=== PATIENT | male | born 1940 | race Caucasian/White ===

== ENCOUNTER → 2016-12-08 | Outpatient (CLI) | payer SELFPAY ==
[2015-06-20 11:45] VITALS: BP 138/80
--- NOTE | 2016-12-08 09:31 | CT ---
HISTORY: Screening. History of diabetes mellitus. Study: Cardiac calcium scoring. Technique: Multiple axial images of the chest were obtained on a [address] from the main pulmonary artery to the base of the heart. Noncontrast evaluation of the heart was performed for calcium scoring with prospective gating. Findings: A total calcium score of 317 is observed which is between the 50th and 75th percentile for males above the age of 70. This score implies definite, at least moderate atherosclerotic plaque wi th mild coronary artery disease highly likely and significant narrowings possible. LM: 0 LAD: 140 LCX: 69 RCA: 108 Extracardiac findings: There are calcifications of the aortic and mitral valves. No pathologically enlarged lymphadenopathy can be observed. No significant pericardial effusion can be identified. The visualized portions o f the lung parenchyma are unremarkable. No lytic or blastic lesions can be identified within the vi sualized bony thorax. IMPRESSION: A total calcium score of 317 is observed which is between the 50th and 75th percentile for males above the age of 70. This score implies definite, at least moderate atherosclerotic plaque with mild coronary artery disease highly likely and significant narrowings possible. Reported By:
== END ==
LOC: RAD 08:24
PROVIDERS: ATTEND Family Medicine
DX: Z13.6 Encounter for screening for cardiovascular disorders (principal)

== ENCOUNTER 2020-05-29 05:53 | Inpatient (IN) ==
[2020-05-29 06:06] VITALS: BMI 25.4
--- NOTE | 2020-05-29 06:21 | DR.SOBA ---
HPI Time Seen Time Seen by Provider: 05/29/20 06:08 Primary Care Physician Primary Care Physician: FELECIA LUCAS HPI Comment HPI Comment: A 79 y/o male presenting with SOB and dizziness. It was about 5 O' Clock this morning and went to use the bathroom. Upon attempting to arise, he was dizzy and SOB. He said he got quite diaphoretic but had no c/p or palpitations. He managed to get from the bathroom to his Den and called EMS. He is asymptomatic at rest but states that the MAHAJAN will occur with minimal exertion, along with dizziness. He has a hx. of tinnitus and a heart murmur. He takes daily ASA, Plavix and a blood thinner already. Complaints Chief Complaint:: PT IN ED VIA STRETCHER PER [facility] WITH C/O SOB AND DIAPHORETIC. COVID-19 Coronavirus risk:travel/contact w/high risk person: No Has patient experienced Coronavirus symptoms: No Reviewed Nurses Notes Reviewed: Yes Source History Provided: Patient Mode of Arrival Mode of Arrival: Stretcher Timing Onset of Chief Complaint: 05/29/20 Context Onset:: With Light Exertion PE Risk Factors:: None History of:: None Currently on:: Neither Prehospital Care:: None Modifying Factors Worsens:: Exertion Improves:: Rest Associated Signs and Symptoms Associated Signs and Symptoms: None PMH PMH Past Medical History: Yes Past Medical History: Diabetes and Dyslipidemia Past Medical History Comment: HEART MURMUR, CVA Past Surgical History: No Surgical History: No History Family History History of Family Medical Conditions: Yes Family Medical History: Diabetes Mellitus, Cancer and Hypertension Social History Does patient currently use any type of tobacco product: No Have you used tobacco products in the last 12 months: No Type of Tobacco Use: None Does any household member use tobacco: No Alcohol Use: None Do you use any recreational Drugs:: No Lives With: Spouse Lives Where: Home Travel Risk Coronavirus risk:travel/contact w/high risk person: No Has patient experienced Coronavirus symptoms: No Infectious screening In the last 2 months have you had wt loss of >10#?: NO Have you had fever, night sweats or hemotysis?: No Have you traveled outside the country in the last 6 months?: No Isolation: Standard ROS Review of Systems Constitutional: Diaphoresis Eyes: No Symptoms Reported ENTM: No Symptoms Reported Respiratoy: Short of Breath Cardiovascular: No Symptoms Reported Gastrointestinal/Abdominal: No Symptoms Reported Genitourinary: No Symptoms Reported Neurological: Dizziness Musculoskeletal: No Symptoms Reported Integumentary: No Symptoms Reported Hematologic/Lymphatic: No Symptoms Reported Endocrine: No Symptoms Reported Psychiatric: No Symptoms Reported PE Vital Signs Vitals: Temperature 98.5 F Pulse Rate 100 Respiratory Rate 24 Blood Pressure 130/60 O2 Sat by Pulse Oximetry 100 General Limitations: No Limitations General Appearance: Alert and In No Apparent Distress Head Head Exam: Normal Inspection, Atraumatic and Normocephalic Eyes Eye exam: Normal Appearance and EOMI ENT ENT Exam: Normal Exam, Normal Oropharynx, Normal External Ear Exam and Mucous Membranes Moist Neck Neck Exam: Normal Inspection, Full ROM and Trachea Midline Chest Chest Inspection: Normal Inspection and Symmetric Chest Wall Rise Respiratory Respiratory Exam: Normal Lung Sounds Bilat Cardiovascular Cardiovascular Exam: Regular Rate, Normal Rhythm, Normal Heart Sounds, +S1 and +S2 Abdominal Exam Abdominal Exam: Normal Inspection, Normal Bowel Sounds and Soft Extremities Extremities Exam: Normal Inspection and Full ROM Back Back Exam: Normal Inspection and Full ROM Neurologic Neurological Exam: Alert and Oriented X3 Psychiatric Psychiatric Exam: Normal Affect and Normal Mood Skin Skin Exam: Dry and Normal Color COURSE Reevaluation 1st: Unchanged Education/Counseling Education/Counseling: Patient, Education and Counseling Educated On: Treatment, Diagnosis, Prognosis and Needs for Follow Up ROR Labs Reviewed Laboratory Results Reviewed?: Yes Result Diagrams: 05/29/20 06:20 05/29/20 06:20 Laboratory: WBC 8.0 X10^3/uL (3.6-10.0) 05/29/20 06:20 RBC 1.74 X10^6/uL (4.7-6.0) L 05/29/20 06:20 Hgb 6.0 g/dL (13.5-18.0) L* 05/29/20 06:20 Hct 17.1 % (42.0-54.0) L* 05/29/20 06:20 MCV 98.1 fL (80.0-100.0) 05/29/20 06:20 MCH 34.3 pg (27.0-34.0) H 05/29/20 06:20 MCHC 35.0 g/dL (33.0-35.0) 05/29/20 06:20 RDW 13.7 % (11.6-16.5) 05/29/20 06:20 Plt Count 140 X10^3/uL (150.0-450.0) L 05/29/20 06:20 MPV 8.3 fL (7.4-11.0) 05/29/20 06:20 Neut % (Auto) 50.8 % (42.0-75.0) 05/29/20 06:20 Lymph % (Auto) 45.1 % (21.0-51.0) 05/29/20 06:20 [place] % (Auto) 3.2 % (0.0-13.0) 05/29/20 06:20 Eos % (Auto) 0.5 % (0.9-2.9) L 05/29/20 06:20 Baso % (Auto) 0.4 % (0.2-1.0) 05/29/20 06:20 Neut # (Auto) 4.0 x10^3/uL (2.2-4.8) 05/29/20 06:20 Lymph # (Auto) 3.6 X10^3/uL (1.3-2.9) H 05/29/20 06:20 [place] # (Auto) 0.3 x10^3/uL (0.3-0.8) 05/29/20 06:20 Eos # (Auto) 0.0 x10^3/uL (0.0-0.2) 05/29/20 06:20 Baso # (Auto) 0.0 X10^3/uL (0.0-0.1) 05/29/20 06:20 Absolute Nucleated RBC 0.0 /100WBC 05/29/20 06:20 Sample Site Rbra 05/29/20 06:26 ABG pH 7.490 (7.35-7.45) H 05/29/20 06:26 ABG pCO2 28.0 mmHg (35.0-45.0) L 05/29/20 06:26 ABG pO2 156.0 mmHg (80.0-100.0) H 05/29/20 06:26 ABG HCO3 21.3 mmol/L (22-26) L 05/29/20 06:26 ABG O2 Saturation 100.0 % (90-100) 05/29/20 06:26 ABG Base Excess -1.0 mmol/L (-2.0-2.0) 05/29/20 06:26 Mac Test N/a 05/29/20 06:26 A-a Gradient -41.0 mmHg 05/29/20 06:26 FiO2 21.0 05/29/20 06:26 Blood Gas Comments Pt aleksandra well eb 05/29/20 06:26 Sodium 137 mmol/L (136-145) 05/29/20 06:20 Corrected Sodium 139 mmol/L (136-145) 05/29/20 06:20 Potassium 4.1 mmol/L (3.5-5.1) 05/29/20 06:20 Chloride 102 mmol/L (98-107) 05/29/20 06:20 Carbon Dioxide 19.7 mmol/L (21-32) L 05/29/20 06:20 BUN 47 mg/dL (7-18) H 05/29/20 06:20 Creatinine 1.07 mg/dL (0.70-1.30) 05/29/20 06:20 Est GFR (MDRD) Af Amer > 60 (>60) 05/29/20 06:20 Est GFR (MDRD) Non-Af > 60 (>60) 05/29/20 06:20 Glucose 182 mg/dL (65-99) H 05/29/20 06:20 Calcium 8.1 mg/dL (8.5-10.1) L 05/29/20 06:20 Corrected Calcium 9.2 mg/dL (8.5-10.1) 05/29/20 06:20 Total Bilirubin 0.20 mg/dL (0.2-1.0) 05/29/20 06:20 AST 14 Units/L (15-37) L 05/29/20 06:20 ALT 13 Units/L (12-78) 05/29/20 06:20 Alkaline Phosphatase 23 Units/L (46-116) L 05/29/20 06:20 Creatine Kinase 32 Units/L (39-308) L 05/29/20 06:20 CK-MB (CK-2) < 1.0 ng/mL (0-4.0) 05/29/20 06:20 CK/CKMB % Calc 3.1 % (<4) 05/29/20 06:20 Troponin I 0.02 ng/mL (0-1.5) 05/29/20 06:20 Total Protein 5.1 g/dL (6.4-8.2) L 05/29/20 06:20 Albumin 2.6 g/dL (3.4-5.0) L 05/29/20 06:20 Globulin 2.5 g/dL (2.5-4.5) 05/29/20 06:20 Albumin/Globulin Ratio 1.0 Ratio (1.1-2.1) L 05/29/20 06:20 Stool Description Fob tube 05/29/20 07:09 Stl Occult Blood (IFOB) Positive (NEGATIVE) A 05/29/20 07:09 EKG Rate: 105 Dike: Normal Rhythm: ST Block: None Hypertrophy: None ST: Normal Opioid Opioid Risk Tool Age (Jose Eduardo box if 16-45): No History of Preadolescent Sexual Abuse: No Total: 0 Total Score Risk Category: Low Risk Copyright: Chevy QUINN predicting aberrant behaviors Diagnosis Discharge Problem: Symptomatic anemia, Near syncope, BPH loc w urin obs/LUTS Type 2 diabetes mellitus Qualifiers: Diabetes mellitus shelter insulin use: without shelter use Diabetes mellitus complication status: with other specified complication Qualified Code(s): E11.69 - Type 2 diabetes mellitus with other specified complication
[2020-05-29 06:30] LABS: ABG HCO3 21.3 mmol/L (22-26)
--- NOTE | 2020-05-29 06:35 | RAD ---
HISTORYPT IN ED VIA STRETCHER PER [facility] WITH C/O SOB AND DIAPHORETIC.STUDYCHEST, 1 VIEWCOMPARISONNoneTECHNIQUEAP view of the chestFINDINGSCardiac and mediastinal contours are within normal limits. The lungs are hyperexpanded. Scattered interstitial opacities. Blunted costophrenic sulci. No consolidation. No pneumothorax.IMPRESSIONSuspect emphysema with mild chronic interstitial disease.Electronically signed by: Taran Valiente (May 29, 2020 06:33:24)
[2020-05-29 06:44] LABS: BASOPHILS % (AUTO) 0.4 % (0.2-1.0); EOSINOPHILS % (AUTO) 0.5 % (0.9-2.9); LYMPHOCYTES # (AUTO) 3.6 X10^3/uL (1.3-2.9); LYMPHOCYTES % (AUTO) 45.1 % (21.0-51.0); MEAN CORPUSCULAR HEMOGLOBIN 34.3 pg (27.0-34.0); MEAN CORPUSCULAR VOLUME 98.1 fL (80.0-100.0); MEAN PLATELET VOLUME 8.3 fL (7.4-11.0); MONOCYTES # (AUTO) 0.3 x10^3/uL (0.3-0.8); MONOCYTES % (AUTO) 3.2 % (0.0-13.0); NEUTROPHILS % (AUTO) 50.8 % (42.0-75.0); PLATELET COUNT 140 X10^3/uL (150.0-450.0); RED BLOOD COUNT 1.74 X10^6/uL (4.7-6.0); RED CELL DISTRIBUTION WIDTH 13.7 % (11.6-16.5)
[2020-05-29 06:55] LABS: HEMATOCRIT 17.1 % (42.0-54.0)
[2020-05-29 07:08] LABS: ALANINE AMINOTRANSFERASE 13 Units/L (12-78); ALBUMIN 2.6 g/dL (3.4-5.0); ALKALINE PHOSPHATASE 23 Units/L (46-116); ASPARTATE AMINO TRANSFERASE 14 Units/L (15-37); BLOOD UREA NITROGEN 47 mg/dL (7-18); CALCIUM 8.1 mg/dL (8.5-10.1); CARBON DIOXIDE 19.7 mmol/L (21-32); CHLORIDE 102 mmol/L (98-107); CKMB % 3.1 % (<4); COR CA(FOR HYPOALB) 9.2 mg/dL (8.5-10.1); COR NA(FOR HYPERGLY) 139 mmol/L (136-145); CREATINE KINASE 32 Units/L (39-308); CREATINE KINASE MB < 1.0 ng/mL (0-4.0); CREATININE 1.07 mg/dL (0.70-1.30); SODIUM 137 mmol/L (136-145); TOTAL PROTEIN 5.1 g/dL (6.4-8.2); TROPONIN I 0.02 ng/mL (0-1.5); eGFR NON BLACK RACES > 60 (>60)
[2020-05-29] MEDS ORDERED: TYLENOL 325 MG TAB PO PRN (07:32)
[2020-05-29] MEDS ORDERED: BENADRYL INJ 50 MG VIAL IVP PRN (07:32)
[2020-05-29] MEDS ORDERED: ASPIRIN PO SCH (09:56)
[2020-05-29] MEDS ORDERED: PATIENT'S HOME MEDICATION (Cinnamon Bark [Cinnamon] 500 mg Capsule) PO SCH (09:56)
[2020-05-29] MEDS ORDERED: PLAVIX PO SCH (09:56)
[2020-05-29] MEDS ORDERED: GLUCOPHAGE ONE ×2 (10:34→21:06)
[2020-05-29] MEDS: NS 500 ML IV 500 ML IV ONE (10:45)
[2020-05-29] MEDS: NS 1000 ML 1,000 ML IV SCH ×2 (10:45→18:18)
[2020-05-29] MEDS: GLUCOPHAGE PO SCH ×2 (10:45→21:21)
[2020-05-29] MEDS ORDERED: PROTONIX INJ 40 MG VIAL ONE (11:52)
[2020-05-29] MEDS: HumuLIN R SUBCUT PRN ×2 (11:54→21:22)
[2020-05-29] MEDS: PROTONIX INJ 40 MG VIAL IVP SCH ×2 (11:57→21:20)
--- NOTE | 2020-05-29 13:07 | DR.H&P ---
H&P History & Physical for Day of: H&P Date: 05/29/20 Chief Complaint Chief Complaint: Dizziness Shortness of breath Allergies Allergies Allergy/AdvReac Type Severity Reaction Status Date / Time No Known Drug Allergies Allergy Verified 05/29/20 06:06 History of Present Illness History of Present Illness: Pt is a 79 year old male pmhx CVA, DMT2, Low testosterone(androgel), presenting after feeling lightheaded, dizzy, diaphoretic, and short of breath this morning when he went to the bathroom. He does report gradual weakness that he has noticed every morning for the past 6 weeks. He did not notice in blood in his stools. Denies chest pain. He was taking ASA 325 and Plavix due to history of CVA in the past that left him with loss of left peripheral vision. He has seen GI in the past-Dr Hendrix, last colonoscopy normal 5 years ago. Labs/imaging: Wbc 8.0, Hgb 6.0, Plt 140, Na 137, K 4.1, Cr 1.07, Glucose 182, AST 14, ALT 13, ALP 23, Stool occult positive for blood, COVID19 negative, Troponin 0.02, AB.49/ 28/ 156/ 21/ 100% on RA. CXR: Suspect emphysema with mild chronic interstitial disease. Pt to be admitted for GI bleed and symptomatic anemia. Type and screen, will transfuse 2 units prbc. Pt started on CLD, NPO after midnight. Order IVF, IV Protonix 40mg BID, hold aspirin and plavix. Will consult surgery for further evaluation. Continue to monitor and follow up labs/imaging in the morning. Past Medical History Past Medical History: Diabetes and Dyslipidemia Past Surgical History Surgical History: Other Family History Family Medical History: Diabetes Mellitus, Cancer and Hypertension Social History Does patient currently use any type of tobacco product: No Have you used tobacco products in the last 12 months: No Type of Tobacco Use: None Does any household member use tobacco: No Alcohol Use: None Drug Use: None Medications Home Medications: No Known Drug Allergies Allergy (Verified 05/29/20 06:06) CONTINUE taking the following medications aspirin 325 mg PO DAILY 05/29/20 [History] cinnamon bark [Cinnamon] 500 mg PO BID 05/29/20 [History] clopidogrel 75 mg PO DAILY 05/29/20 [History] metformin 500 mg PO BID 05/29/20 [History] [id number] K-lycop [Men's 50 Plus Multivitamin] 1 tab PO QHS 0 [History] simvastatin 40 mg PO HS 05/29/20 [History] tamsulosin 0.4 mg PO HS 05/29/20 [History] Labs Result Diagrams: 05/29/20 06:20 05/29/20 06:20 Labs: Laboratory WBC 8.0 X10^3/uL (3.6-10.0) 05/29/20 06:20 RBC 1.74 X10^6/uL (4.7-6.0) L 05/29/20 06:20 Hgb 6.0 g/dL (13.5-18.0) L* 05/29/20 06:20 Hct 17.1 % (42.0-54.0) L* 05/29/20 06:20 MCV 98.1 fL (80.0-100.0) 05/29/20 06:20 MCH 34.3 pg (27.0-34.0) H 05/29/20 06:20 MCHC 35.0 g/dL (33.0-35.0) 05/29/20 06:20 RDW 13.7 % (11.6-16.5) 05/29/20 06:20 Plt Count 140 X10^3/uL (150.0-450.0) L 05/29/20 06:20 MPV 8.3 fL (7.4-11.0) 05/29/20 06:20 Neut % (Auto) 50.8 % (42.0-75.0) 05/29/20 06:20 Lymph % (Auto) 45.1 % (21.0-51.0) 05/29/20 06:20 [place] % (Auto) 3.2 % (0.0-13.0) 05/29/20 06:20 Eos % (Auto) 0.5 % (0.9-2.9) L 05/29/20 06:20 Baso % (Auto) 0.4 % (0.2-1.0) 05/29/20 06:20 Neut # (Auto) 4.0 x10^3/uL (2.2-4.8) 05/29/20 06:20 Lymph # (Auto) 3.6 X10^3/uL (1.3-2.9) H 05/29/20 06:20 [place] # (Auto) 0.3 x10^3/uL (0.3-0.8) 05/29/20 06:20 Eos # (Auto) 0.0 x10^3/uL (0.0-0.2) 05/29/20 06:20 Baso # (Auto) 0.0 X10^3/uL (0.0-0.1) 05/29/20 06:20 Absolute Nucleated RBC 0.0 /100WBC 05/29/20 06:20 Sample Site Rbra 05/29/20 06:26 ABG pH 7.490 (7.35-7.45) H 05/29/20 06:26 ABG pCO2 28.0 mmHg (35.0-45.0) L 05/29/20 06:26 ABG pO2 156.0 mmHg (80.0-100.0) H 05/29/20 06:26 ABG HCO3 21.3 mmol/L (22-26) L 05/29/20 06:26 ABG O2 Saturation 100.0 % (90-100) 05/29/20 06:26 ABG Base Excess -1.0 mmol/L (-2.0-2.0) 05/29/20 06:26 Mac Test N/a 05/29/20 06:26 A-a Gradient -41.0 mmHg 05/29/20 06:26 FiO2 21.0 05/29/20 06:26 Blood Gas Comments Pt aleksandra well eb 05/29/20 06:26 Sodium 137 mmol/L (136-145) 05/29/20 06:20 Corrected Sodium 139 mmol/L (136-145) 05/29/20 06:20 Potassium 4.1 mmol/L (3.5-5.1) 05/29/20 06:20 Chloride 102 mmol/L (98-107) 05/29/20 06:20 Carbon Dioxide 19.7 mmol/L (21-32) L 05/29/20 06:20 BUN 47 mg/dL (7-18) H 05/29/20 06:20 Creatinine 1.07 mg/dL (0.70-1.30) 05/29/20 06:20 Est GFR (MDRD) Af Amer > 60 (>60) 05/29/20 06:20 Est GFR (MDRD) Non-Af > 60 (>60) 05/29/20 06:20 Glucose 182 mg/dL (65-99) H 05/29/20 06:20 POC Glucose (mg/dL) 198 mg/dL (65-99) H 05/29/20 11:42 Calcium 8.1 mg/dL (8.5-10.1) L 05/29/20 06:20 Corrected Calcium 9.2 mg/dL (8.5-10.1) 05/29/20 06:20 Total Bilirubin 0.20 mg/dL (0.2-1.0) 05/29/20 06:20 AST 14 Units/L (15-37) L 05/29/20 06:20 ALT 13 Units/L (12-78) 05/29/20 06:20 Alkaline Phosphatase 23 Units/L (46-116) L 05/29/20 06:20 Creatine Kinase 32 Units/L (39-308) L 05/29/20 06:20 CK-MB (CK-2) < 1.0 ng/mL (0-4.0) 05/29/20 06:20 CK/CKMB % Calc 3.1 % (<4) 05/29/20 06:20 Troponin I 0.02 ng/mL (0-1.5) 05/29/20 06:20 Total Protein 5.1 g/dL (6.4-8.2) L 05/29/20 06:20 Albumin 2.6 g/dL (3.4-5.0) L 05/29/20 06:20 Globulin 2.5 g/dL (2.5-4.5) 05/29/20 06:20 Albumin/Globulin Ratio 1.0 Ratio (1.1-2.1) L 05/29/20 06:20 Stool Description Fob tube 05/29/20 07:09 Stl Occult Blood (IFOB) Positive (NEGATIVE) A 05/29/20 07:09 SARS-CoV-2 (PCR) Negative (NEGATIVE) 05/29/20 07:29 Blood Type O POSITIVE 11/12/20 08:02 Antibody Screen Negative 05/29/20 08:02 Crossmatch See Detail 05/29/20 08:02 Review of Systems Constitutional: Weakness; denies Fever and Chills Eyes: No Symptoms Reported ENT: No Symptoms Reported Respiratory: Shortness of Breath Cardiovascular: No Symptoms Reported Gastrointestinal: Nausea and Abdominal Pain; denies Diarrhea and Constipation Genitourinary: No Symptoms Reported Musculoskeletal: No Symptoms Reported Skin: No Symptoms Reported Neurological: No Symptoms Reported Physical Exam Vital Signs: Temperature 97.9 F Pulse Rate [Bilateral] 102 Pulse Rate 102 Respiratory Rate 22 Blood Pressure [Right Arm] 128/58 Blood Pressure 130/60 O2 Sat by Pulse Oximetry 100 Oriented: Normal Eyes: Normal Ear: Normal Nose: Normal Throat: Normal Respiratory: Clear Throughout Cardiovascular: Tachycardia : Normal Auscultation: Bowel Sounds: Normal Palpation: Normal Tenderness: Suprapubic and Mild Skin: Normal Musculoskeletal: Normal Psychiatric: Normal Mood Description: Calm and Appropriate Affect: Normal Speech Pattern: Clear and Appropriate Assessment/Plan (1) GI bleed: Qualifiers: GI bleed type/associated pathology: unspecified gastrointestinal hemorrhage type Qualified Code(s): K92.2 - Gastrointestinal hemorrhage, u nspecified Status: Acute Plan: CLD, NPO after midnight Trend Hgb, transfuse 2 units prbc, IV Protonix Stool occult positive Consult general surgery (2) Symptomatic anemia: Status: Acute Review H&P Reviewed: Yes Patient was examined?: Yes
[2020-05-29] MEDS ORDERED: NULYTELY or GO-LYTELY PO SCH (15:00)
[2020-05-29] MEDS: SNACK - Diabetic Appropriate PO SCH (20:00)
[2020-05-29] MEDS ORDERED: [UNRECOGNIZED DRUG - OTHER] PO SCH (21:00)
[2020-05-29] MEDS ORDERED: MULTIVIT MIN FOLIC VIT K LYCOP PO SCH (21:00)
[2020-05-29] MEDS: FLOMAX PO SCH (21:21)
[2020-05-29] MEDS: ZOCOR TAB 40 MG PO SCH (21:21)
[2020-05-29 21:55] LABS: HEMATOCRIT 20.6 % (42.0-54.0); HEMOGLOBIN 7.1 g/dL (13.5-18.0)
[2020-05-29 23:33] LABS: GASTRIC OCCULT BLOOD POSITIVE (NEGATIVE); PH,GASTRIC FLUID 4
[2020-05-30] MEDS ORDERED: NS 250 ML IV 250 ML IV ONE ×3 (01:08→10:23)
[2020-05-30] MEDS: NS 1000 ML 1,000 ML IV SCH ×4 (01:45→18:49)
[2020-05-30 07:01] LABS: BLOOD UREA NITROGEN 40 mg/dL (7-18); CALCIUM 7.2 mg/dL (8.5-10.1); CARBON DIOXIDE 23.6 mmol/L (21-32); CHLORIDE 110 mmol/L (98-107); COR NA(FOR HYPERGLY) 144 mmol/L (136-145); CREATININE 0.97 mg/dL (0.70-1.30); SODIUM 142 mmol/L (136-145); eGFR NON BLACK RACES > 60 (>60)
[2020-05-30 07:11] LABS: BASOPHILS % (AUTO) 0.3 % (0.2-1.0); EOSINOPHILS % (AUTO) 0.4 % (0.9-2.9); LYMPHOCYTES # (AUTO) 4.7 X10^3/uL (1.3-2.9); LYMPHOCYTES % (AUTO) 51.7 % (21.0-51.0); MEAN CORPUSCULAR HEMOGLOBIN 32.7 pg (27.0-34.0); MEAN CORPUSCULAR HGB CONC 33.9 g/dL (33.0-35.0); MEAN CORPUSCULAR VOLUME 96.5 fL (80.0-100.0); MEAN PLATELET VOLUME 8.5 fL (7.4-11.0); MONOCYTES # (AUTO) 0.2 x10^3/uL (0.3-0.8); MONOCYTES % (AUTO) 2.7 % (0.0-13.0); NEUTROPHILS # (AUTO) 4.1 x10^3/uL (2.2-4.8); NEUTROPHILS % (AUTO) 44.9 % (42.0-75.0); PLATELET COUNT 102 X10^3/uL (150.0-450.0); RED BLOOD COUNT 2.04 X10^6/uL (4.7-6.0); RED CELL DISTRIBUTION WIDTH 14.3 % (11.6-16.5); WHITE BLOOD COUNT 9.1 X10^3/uL (3.6-10.0)
[2020-05-30 07:16] LABS: HEMOGLOBIN 6.7 g/dL (13.5-18.0)
[2020-05-30 07:17] LABS: HEMATOCRIT 19.7 % (42.0-54.0)
[2020-05-30 07:50] LABS: HYPOCHROMASIA 1+; PLATELET MORPHOLOGY COMMENT NORMAL (NORMAL)
[2020-05-30 07:51] LABS: ANISOCYTOSIS 1+
[2020-05-30] MEDS: GLUCOPHAGE PO SCH ×2 (08:47→20:54)
[2020-05-30] MEDS: PROTONIX INJ 40 MG VIAL IVP SCH ×2 (08:47→20:55)
[2020-05-30] MEDS ORDERED: NS 500 ML IV 500 ML IV ONE (08:50)
[2020-05-30] MEDS ORDERED: DIPRIVAN VIAL 20 ML ONE (09:01)
[2020-05-30] MEDS ORDERED: EPHEDRINE SULFATE INJ ONE (09:54)
--- NOTE | 2020-05-30 11:36 | PCM.PROG ---
Progress Note Progress Note for Day of Date of Exam: 05/30/20 Subjective Subjective: Pt is a 79 year old male pmhx CVA, DMT2, Low testosterone, admitted for GI bleed and symptomatic anemia. Overnight patient had tarry black stools per nursing and did vomit, with gastric occult being positive for blood. Labs/imaging: Wbc 9.1, Hgb 6.7, Plt 102, Na 142, K 4.1, Cr 0.97, Glucose 170, Stool occult positive for blood. Pt is NPO. Hgb continues to trend down despite transfusions. Discussed with nursing to notify surgery pt will need EGD as well as colonoscopy. Continue IVF, IV Protonix 40mg BID, holding home aspirin and plavix. Pt is scheduled for procedures this morning. He has received 3 units prbc and will order another 3 units to be transfused. Continue to monitor and follow up labs/imaging. Past Medical Family Social History Past Med/Fam/Surg Hx: No changes since H&P Allergies: Allergies No Known Drug Allergies Allergy (Verified 05/29/20 06:06) Review of Systems ROS: No change since H&P Vital Signs and I&O's Vital Signs: Temperature 98.6 F Pulse Rate [Bilateral] 102 Pulse Rate 102 Respiratory Rate 18 Blood Pressure [Right Arm] 112/55 Blood Pressure 130/60 O2 Sat by Pulse Oximetry 100 Intake and Output: Intake & Output 05/27/20 05/28/20 05/29/20 05/30/20 23:59 23:59 23:59 23:59 Intake Total 5960 / 5960 1143 / 1143 Balance 5960 / 5960 1143 / 1143 Physical Exam Oriented: Normal Eyes: Normal Ear: Normal Nose: Normal Throat: Normal Respiratory: Normal Cardiovascular: Tachycardia : Normal Auscultation: Bowel Sounds: Normal Tenderness: Epigastric and Mild Skin: Normal Musculoskeletal: Normal Psychiatric: Normal Mood Description: Calm and Appropriate Affect: Normal Speech Pattern: Clear and Appropriate Laboratory and Diagnostics Result Diagrams: 05/30/20 05:32 05/30/20 05:32 Labs: Laboratory WBC 9.1 X10^3/uL (3.6-10.0) 05/30/20 05:32 RBC 2.04 X10^6/uL (4.7-6.0) L 05/30/20 05:32 Hgb 6.7 g/dL (13.5-18.0) L* 05/30/20 05:32 Hct 19.7 % (42.0-54.0) L* 05/30/20 05:32 MCV 96.5 fL (80.0-100.0) 05/30/20 05:32 MCH 32.7 pg (27.0-34.0) 05/30/20 05:32 MCHC 33.9 g/dL (33.0-35.0) 05/30/20 05:32 RDW 14.3 % (11.6-16.5) 05/30/20 05:32 Plt Count 102 X10^3/uL (150.0-450.0) L 05/30/20 05:32 Plt Count Comment Decreased (ADEQUATE) 05/30/20 05:32 MPV 8.5 fL (7.4-11.0) 05/30/20 05:32 Neut % (Auto) 44.9 % (42.0-75.0) 05/30/20 05:32 Lymph % (Auto) 51.7 % (21.0-51.0) H 05/30/20 05:32 [place] % (Auto) 2.7 % (0.0-13.0) 05/30/20 05:32 Eos % (Auto) 0.4 % (0.9-2.9) L 05/30/20 05:32 Baso % (Auto) 0.3 % (0.2-1.0) 05/30/20 05:32 Neut # (Auto) 4.1 x10^3/uL (2.2-4.8) 05/30/20 05:32 Lymph # (Auto) 4.7 X10^3/uL (1.3-2.9) H 05/30/20 05:32 [place] # (Auto) 0.2 x10^3/uL (0.3-0.8) L 05/30/20 05:32 Eos # (Auto) 0.0 x10^3/uL (0.0-0.2) 05/30/20 05:32 Baso # (Auto) 0.0 X10^3/uL (0.0-0.1) 05/30/20 05:32 Absolute Nucleated RBC 0.2 /100WBC 05/30/20 05:32 Total Counted 100 05/30/20 05:32 Neutrophils % (Manual) 46 % (39-76) 05/30/20 05:32 Lymphocytes % (Manual) 43 % (13-43) 05/30/20 05:32 Monocytes % (Manual) 5 % (4-9) 05/30/20 05:32 Atypical Lymphocytes 6 05/30/20 05:32 Plt Morphology Comment Normal (NORMAL) 05/30/20 05:32 RBC Morphology Abnormal (NORMAL) 05/30/20 05:32 Hypochromasia 1+ A 05/30/20 05:32 Anisocytosis 1+ A 05/30/20 05:32 Sample Site Rbra 05/29/20 06:26 ABG pH 7.490 (7.35-7.45) H 05/29/20 06:26 ABG pCO2 28.0 mmHg (35.0-45.0) L 05/29/20 06:26 ABG pO2 156.0 mmHg (80.0-100.0) H 05/29/20 06:26 ABG HCO3 21.3 mmol/L (22-26) L 05/29/20 06:26 ABG O2 Saturation 100.0 % (90-100) 05/29/20 06:26 ABG Base Excess -1.0 mmol/L (-2.0-2.0) 05/29/20 06:26 Mac Test N/a 05/29/20 06:26 A-a Gradient -41.0 mmHg 05/29/20 06:26 FiO2 21.0 05/29/20 06:26 Blood Gas Comments Pt aleksandra well eb 05/29/20 06:26 Sodium 142 mmol/L (136-145) 05/30/20 05:32 Corrected Sodium 144 mmol/L (136-145) 05/30/20 05:32 Potassium 4.1 mmol/L (3.5-5.1) 05/30/20 05:32 Chloride 110 mmol/L (98-107) H 05/30/20 05:32 Carbon Dioxide 23.6 mmol/L (21-32) 05/30/20 05:32 BUN 40 mg/dL (7-18) H 05/30/20 05:32 Creatinine 0.97 mg/dL (0.70-1.30) 05/30/20 05:32 Est GFR (MDRD) Af Amer > 60 (>60) 05/30/20 05:32 Est GFR (MDRD) Non-Af > 60 (>60) 05/30/20 05:32 Glucose 170 mg/dL (65-99) H 05/30/20 05:32 POC Glucose (mg/dL) 158 mg/dL (65-99) H 05/30/20 05:42 Calcium 7.2 mg/dL (8.5-10.1) L 05/30/20 05:32 Corrected Calcium 9.2 mg/dL (8.5-10.1) 05/29/20 06:20 Total Bilirubin 0.20 mg/dL (0.2-1.0) 05/29/20 06:20 AST 14 Units/L (15-37) L 05/29/20 06:20 ALT 13 Units/L (12-78) 05/29/20 06:20 Alkaline Phosphatase 23 Units/L (46-116) L 05/29/20 06:20 Creatine Kinase 32 Units/L (39-308) L 05/29/20 06:20 CK-MB (CK-2) < 1.0 ng/mL (0-4.0) 05/29/20 06:20 CK/CKMB % Calc 3.1 % (<4) 05/29/20 06:20 Troponin I 0.02 ng/mL (0-1.5) 05/29/20 06:20 Total Protein 5.1 g/dL (6.4-8.2) L 05/29/20 06:20 Albumin 2.6 g/dL (3.4-5.0) L 05/29/20 06:20 Globulin 2.5 g/dL (2.5-4.5) 05/29/20 06:20 Albumin/Globulin Ratio 1.0 Ratio (1.1-2.1) L 05/29/20 06:20 Gastric Fluid pH 4 05/29/20 23:15 Gastric Occult Blood Positive (NEGATIVE) A 05/29/20 23:15 Stool Description Fob tube 05/29/20 07:09 Stl Occult Blood (IFOB) Positive (NEGATIVE) A 05/29/20 07:09 SARS-CoV-2 (PCR) Negative (NEGATIVE) 05/29/20 07:29 Blood Type O POSITIVE 05/29/20 08:02 Antibody Screen Negative 05/29/20 08:02 Crossmatch See Detail 05/29/20 08:02 Plan (1) GI bleed: Status: Acute Qualifiers: GI bleed type/associated pathology: unspecified gastrointestinal hemorrhage type Qualified Code(s): K92.2 - Gastrointestinal hemorrhage, unspecified Plan: NPO, Trend Hgb, IV Protonix Hgb:6>2u prbc>7.1>1u prbc>6.7>3u prbc Stool occult positive, gastric occult positive General surgery consulted, plan for EGD and colonoscopy today. (2) Symptomatic anemia: Status: Acute
[2020-05-30] MEDS: NS 500 ML IV 500 ML IV ONE (11:47)
[2020-05-30 15:14] LABS: HEMATOCRIT 22.8 % (42.0-54.0); HEMOGLOBIN 7.8 g/dL (13.5-18.0)
[2020-05-30 19:02] LABS: HEMATOCRIT 22.5 % (42.0-54.0)
[2020-05-30 19:10] LABS: HEMOGLOBIN 7.7 g/dL (13.5-18.0)
[2020-05-30] MEDS ORDERED: GLUCOPHAGE ONE (20:16)
[2020-05-30] MEDS: ZOCOR TAB 40 MG PO SCH (20:53)
[2020-05-30] MEDS: FLOMAX PO SCH (20:53)
[2020-05-30] MEDS: SNACK - Diabetic Appropriate PO SCH (20:54)
[2020-05-30] MEDS: TAB-A-VITE PO SCH (20:55)
[2020-05-31] MEDS: NS 1000 ML 1,000 ML IV SCH ×3 (03:08→18:20)
[2020-05-31 05:30] LABS: BASOPHILS % (AUTO) 0.3 % (0.2-1.0); EOSINOPHILS # (AUTO) 0.1 x10^3/uL (0.0-0.2); MONOCYTES # (AUTO) 0.3 x10^3/uL (0.3-0.8); PLATELET COUNT 88 X10^3/uL (150.0-450.0); WHITE BLOOD COUNT 9.7 X10^3/uL (3.6-10.0)
[2020-05-31 05:33] LABS: EOSINOPHILS % (AUTO) 1.2 % (0.9-2.9); LYMPHOCYTES # (AUTO) 4.8 X10^3/uL (1.3-2.9); LYMPHOCYTES % (AUTO) 49.4 % (21.0-51.0); MEAN CORPUSCULAR HEMOGLOBIN 32.5 pg (27.0-34.0); MEAN CORPUSCULAR HGB CONC 34.4 g/dL (33.0-35.0); MEAN CORPUSCULAR VOLUME 94.7 fL (80.0-100.0); MEAN PLATELET VOLUME 8.5 fL (7.4-11.0); MONOCYTES % (AUTO) 2.9 % (0.0-13.0); NEUTROPHILS # (AUTO) 4.5 x10^3/uL (2.2-4.8); NEUTROPHILS % (AUTO) 46.2 % (42.0-75.0); RED BLOOD COUNT 1.89 X10^6/uL (4.7-6.0); RED CELL DISTRIBUTION WIDTH 14.7 % (11.6-16.5)
[2020-05-31 05:34] LABS: BLOOD UREA NITROGEN 36 mg/dL (7-18); CALCIUM 7.2 mg/dL (8.5-10.1); CARBON DIOXIDE 21.4 mmol/L (21-32); CHLORIDE 111 mmol/L (98-107); COR NA(FOR HYPERGLY) 143 mmol/L (136-145); CREATININE 0.89 mg/dL (0.70-1.30); SODIUM 140 mmol/L (136-145); eGFR NON BLACK RACES > 60 (>60)
[2020-05-31 05:36] LABS: HEMATOCRIT 17.9 % (42.0-54.0); HEMOGLOBIN 6.2 g/dL (13.5-18.0)
[2020-05-31] MEDS ORDERED: NS 250 ML IV 250 ML IV ONE ×2 (07:26→12:02)
[2020-05-31] MEDS ORDERED: GLUCOPHAGE ONE (08:45)
[2020-05-31] MEDS: GLUCOPHAGE PO SCH ×2 (09:40→09:46)
[2020-05-31] MEDS: PROTONIX INJ 40 MG VIAL IVP SCH ×2 (10:00→20:29)
--- NOTE | 2020-05-31 10:24 | RAD ---
HISTORYCHFSTUDYAP [id number] normal heart size. There is no change in appearance of the lungs. There is no evidence for consolidation, pulmonary edema or pleural fluid.IMPRESSIONNo interva l change or acute chest abnormality demonstrated.Electronically signed by: DON ZUNIGA (May 31 10:22:32)
[2020-05-31] MEDS ORDERED: LASIX IVP ONE (10:33)
--- NOTE | 2020-05-31 11:14 | DR.PROGNOT ---
Hospital Progress Notes - Progress Note for Day of: Progress Note Date: 05/31/20 - Chief Complaint Chief Complaint: no active bleeding . no nausea or vomiting . passing flatus , no bowel movement. denies abdominal pain . no chest pain . Hgb early this am was 6.2 . - Past Medical Family Social History Past Med/Fam/Surg Hx: No changes since H&P Allergies: Allergies No Known Drug Allergies Allergy (Verified 05/29/20 06:06) - Review Of Systems ROS: No change since H&P - Vital Signs Vital Signs: Temperature 98.1 F Pulse Rate [Bilateral] 107 Pulse Rate 102 Respiratory Rate 17 Blood Pressure [Right Arm] 131/60 Blood Pressure 130/60 O2 Sat by Pulse Oximetry 100 - Physical Exam Oriented: Normal Eyes: Normal Ear: Normal Nose: Normal Throat: Normal Respiratory: Normal Cardiovascular: Normal : Normal GI:Auscultation: Normal GI:Palpation: Normal GI: Tenderness: Normal (soft , flat abdomen , non tender . BS+) Skin: Other (mild edema of the upper extremities ) Musculoskeletal: Normal Psychiatric: Normal Mood Description: Calm, Appropriate Affect: Normal Speech Pattern: Clear, Appropriate - Laboratory and Diagnostics Result Diagrams: 05/31/20 04:55 05/31/20 04:55 Labs: Laboratory WBC 9.7 X10^3/uL (3.6-10.0) 05/31/20 04:55 RBC 1.89 X10^6/uL (4.7-6.0) L 05/31/20 04:55 Hgb 6.2 g/dL (13.5-18.0) L* 05/31/20 04:55 Hct 17.9 % (42.0-54.0) L* 05/31/20 04:55 MCV 94.7 fL (80.0-100.0) 05/31/20 04:55 MCH 32.5 pg (27.0-34.0) 05/31/20 04:55 MCHC 34.4 g/dL (33.0-35.0) 05/31/20 04:55 RDW 14.7 % (11.6-16.5) 05/31/20 04:55 Plt Count 88 X10^3/uL (150.0-450.0) L 05/31/20 04:55 Plt Count Comment Decreased (ADEQUATE) 05/30/20 05:32 MPV 8.5 fL (7.4-11.0) 05/31/20 04:55 Neut % (Auto) 46.2 % (42.0-75.0) 05/31/20 04:55 Lymph % (Auto) 49.4 % (21.0-51.0) 05/31/20 04:55 [place] % (Auto) 2.9 % (0.0-13.0) 05/31/20 04:55 Eos % (Auto) 1.2 % (0.9-2.9) 05/31/20 04:55 Baso % (Auto) 0.3 % (0.2-1.0) 05/31/20 04:55 Neut # (Auto) 4.5 x10^3/uL (2.2-4.8) 05/31/20 04:55 Lymph # (Auto) 4.8 X10^3/uL (1.3-2.9) H 05/31/20 04:55 [place] # (Auto) 0.3 x10^3/uL (0.3-0.8) 05/31/20 04:55 Eos # (Auto) 0.1 x10^3/uL (0.0-0.2) 05/31/20 04:55 Baso # (Auto) 0.0 X10^3/uL (0.0-0.1) 05/31/20 04:55 Absolute Nucleated RBC 0.1 /100WBC 05/31/20 04:55 Total Counted 100 05/30/20 05:32 Neutrophils % (Manual) 46 % (39-76) 05/30/20 05:32 Lymphocytes % (Manual) 43 % (13-43) 05/30/20 05:32 Monocytes % (Manual) 5 % (4-9) 05/30/20 05:32 Atypical Lymphocytes 6 05/30/20 05:32 Plt Morphology Comment Normal (NORMAL) 05/30/20 05:32 RBC Morphology Abnormal (NORMAL) 05/30/20 05:32 Hypochromasia 1+ A 05/30/20 05:32 Anisocytosis 1+ A 05/30/20 05:32 Sample Site [facility] 05/29/20 06:26 ABG pH 7.490 (7.35-7.45) H 05/29/20 06:26 ABG pCO2 28.0 mmHg (35.0-45.0) L 05/29/20 06:26 ABG pO2 156.0 mmHg (80.0-100.0) H 05/29/20 06:26 ABG HCO3 21.3 mmol/L (22-26) L 05/29/20 06:26 ABG O2 Saturation 100.0 % (90-100) 05/29/20 06:26 ABG Base Excess -1.0 mmol/L (-2.0-2.0) 05/29/20 06:26 Mac Test N/a 05/29/20 06:26 A-a Gradient -41.0 mmHg 05/29/20 06:26 FiO2 21.0 05/29/20 06:26 Blood Gas Comments Pt aleksandra well eb 05/29/20 06:26 Sodium 140 mmol/L (136-145) 05/31/20 04:55 Corrected Sodium 143 mmol/L (136-145) 05/31/20 04:55 Potassium 3.8 mmol/L (3.5-5.1) 05/31/20 04:55 Chloride 111 mmol/L (98-107) H 05/31/20 04:55 Carbon Dioxide 21.4 mmol/L (21-32) 05/31/20 04:55 BUN 36 mg/dL (7-18) H 05/31/20 04:55 Creatinine 0.89 mg/dL (0.70-1.30) 05/31/20 04:55 Est GFR (MDRD) Af Amer > 60 (>60) 05/31/20 04:55 Est GFR (MDRD) Non-Af > 60 (>60) 05/31/20 04:55 Glucose 233 mg/dL (65-99) H 05/31/20 04:55 POC Glucose (mg/dL) 222 mg/dL (65-99) H 05/31/20 05:21 Calcium 7.2 mg/dL (8.5-10.1) L 05/31/20 04:55 Corrected Calcium 9.2 mg/dL (8.5-10.1) 05/29/20 06:20 Total Bilirubin 0.20 mg/dL (0.2-1.0) 11/12/20 06:20 AST 14 Units/L (15-37) L 05/29/20 06:20 ALT 13 Units/L (12-78) 05/29/20 06:20 Alkaline Phosphatase 23 Units/L (46-116) L 05/29/20 06:20 Creatine Kinase 32 Units/L (39-308) L 05/29/20 06:20 CK-MB (CK-2) < 1.0 ng/mL (0-4.0) 05/29/20 06:20 CK/CKMB % Calc 3.1 % (<4) 05/29/20 06:20 Troponin I 0.02 ng/mL (0-1.5) 05/29/20 06:20 Total Protein 5.1 g/dL (6.4-8.2) L 05/29/20 06:20 Albumin 2.6 g/dL (3.4-5.0) L 05/29/20 06:20 Globulin 2.5 g/dL (2.5-4.5) 05/29/20 06:20 Albumin/Globulin Ratio 1.0 Ratio (1.1-2.1) L 05/29/20 06:20 Gastric Fluid pH 4 05/29/20 23:15 Gastric Occult Blood Positive (NEGATIVE) A 05/29/20 23:15 Stool Description Fob tube 05/29/20 07:09 Stl Occult Blood (IFOB) Positive (NEGATIVE) A 05/29/20 07:09 SARS-CoV-2 (PCR) Negative (NEGATIVE) 05/29/20 07:29 Blood Type O POSITIVE 05/29/20 08:02 Antibody Screen Negative 05/29/20 08:02 Crossmatch See Detail 05/29/20 08:02 - Assessment and Plan 1: upper GI bleeding ( duodenitis , ) blood in the duodenum without active bleeding during EGD . severe anemia . same plan with transfusion and supportive care . - Problem Patient Problems: Patient Problems Symptomatic anemia (Acute) D64.9 Near syncope (Acute) R55 Type 2 diabetes mellitus (Acute) E11.9 BPH loc w urin obs/LUTS (Acute) N40.1
[2020-05-31] MEDS: CARAFATE ORAL SUSP PO SCH ×3 (11:43→20:30)
[2020-05-31] MEDS: HumuLIN R SUBCUT PRN ×3 (11:44→20:30)
[2020-05-31 12:22] LABS: BILIRUBIN,URINE NEGATIVE (NEGATIVE); BLOOD/HEMOGLOBIN,URINE NEGATIVE (NEGATIVE); GLUCOSE, URINE 4+ (NEGATIVE); KETONES,URINE 1+ (NEGATIVE); LEUKOCYTE ESTERASE ,URINE NEGATIVE (NEGATIVE); NITRITES,URINE NEGATIVE (NEGATIVE); PROTEIN,URINE NEGATIVE (NEGATIVE); UROBILINOGEN,URINE NORMAL (NORMAL)
[2020-05-31 12:25] LABS: APPEARANCE,URINE CLEAR (CLEAR); COLOR,URINE YELLOW (YELLOW)
[2020-05-31 17:23] LABS: ALANINE AMINOTRANSFERASE 27 Units/L (12-78); ALBUMIN 2.1 g/dL (3.4-5.0); ALKALINE PHOSPHATASE 25 Units/L (46-116); ASPARTATE AMINO TRANSFERASE 25 Units/L (15-37); BLOOD UREA NITROGEN 32 mg/dL (7-18); CALCIUM 7.8 mg/dL (8.5-10.1); CARBON DIOXIDE 24.7 mmol/L (21-32); CHLORIDE 108 mmol/L (98-107); COR CA(FOR HYPOALB) 9.3 mg/dL (8.5-10.1); COR NA(FOR HYPERGLY) 142 mmol/L (136-145); CREATININE 0.96 mg/dL (0.70-1.30); SODIUM 139 mmol/L (136-145); TOTAL PROTEIN 4.1 g/dL (6.4-8.2); eGFR NON BLACK RACES > 60 (>60)
[2020-05-31 17:25] LABS: BASOPHILS % (AUTO) 0.3 % (0.2-1.0); EOSINOPHILS # (AUTO) 0.1 x10^3/uL (0.0-0.2); HEMOGLOBIN 7.9 g/dL (13.5-18.0); LYMPHOCYTES # (AUTO) 6.4 X10^3/uL (1.3-2.9); LYMPHOCYTES % (AUTO) 53.5 % (21.0-51.0); MEAN CORPUSCULAR HEMOGLOBIN 32.5 pg (27.0-34.0); MEAN CORPUSCULAR HGB CONC 34.5 g/dL (33.0-35.0); MEAN CORPUSCULAR VOLUME 94.2 fL (80.0-100.0); MEAN PLATELET VOLUME 8.4 fL (7.4-11.0); MONOCYTES # (AUTO) 0.4 x10^3/uL (0.3-0.8); MONOCYTES % (AUTO) 3.2 % (0.0-13.0); PLATELET COUNT 90 X10^3/uL (150.0-450.0); RED BLOOD COUNT 2.44 X10^6/uL (4.7-6.0); RED CELL DISTRIBUTION WIDTH 14.3 % (11.6-16.5); WHITE BLOOD COUNT 11.9 X10^3/uL (3.6-10.0)
[2020-05-31 17:45] LABS: HYPOCHROMASIA SLIGHT; PLATELET MORPHOLOGY COMMENT NORMAL (NORMAL)
[2020-05-31] MEDS: SNACK - Diabetic Appropriate PO SCH (20:28)
[2020-05-31] MEDS: ZOCOR TAB 40 MG PO SCH (20:30)
[2020-05-31] MEDS: FLOMAX PO SCH (20:30)
[2020-05-31] MEDS: TAB-A-VITE PO SCH (20:30)
[2020-06-01] MEDS: NS 1000 ML 1,000 ML IV SCH ×3 (04:06→18:28)
[2020-06-01 04:53] LABS: BASOPHILS % (AUTO) 0.2 % (0.2-1.0); EOSINOPHILS # (AUTO) 0.1 x10^3/uL (0.0-0.2); EOSINOPHILS % (AUTO) 1.4 % (0.9-2.9); HEMATOCRIT 20.6 % (42.0-54.0); HEMOGLOBIN 7.1 g/dL (13.5-18.0); LYMPHOCYTES # (AUTO) 4.2 X10^3/uL (1.3-2.9); LYMPHOCYTES % (AUTO) 45.1 % (21.0-51.0); MEAN CORPUSCULAR HEMOGLOBIN 32.5 pg (27.0-34.0); MEAN CORPUSCULAR HGB CONC 34.3 g/dL (33.0-35.0); MEAN CORPUSCULAR VOLUME 94.7 fL (80.0-100.0); MEAN PLATELET VOLUME 8.5 fL (7.4-11.0); MONOCYTES # (AUTO) 0.3 x10^3/uL (0.3-0.8); NEUTROPHILS # (AUTO) 4.7 x10^3/uL (2.2-4.8); NEUTROPHILS % (AUTO) 50.3 % (42.0-75.0); PLATELET COUNT 88 X10^3/uL (150.0-450.0); RED BLOOD COUNT 2.17 X10^6/uL (4.7-6.0); RED CELL DISTRIBUTION WIDTH 14.8 % (11.6-16.5); WHITE BLOOD COUNT 9.4 X10^3/uL (3.6-10.0)
[2020-06-01 04:57] LABS: BLOOD UREA NITROGEN 27 mg/dL (7-18); CALCIUM 7.7 mg/dL (8.5-10.1); CARBON DIOXIDE 27.6 mmol/L (21-32); CHLORIDE 109 mmol/L (98-107); COR NA(FOR HYPERGLY) 142 mmol/L (136-145); CREATININE 0.93 mg/dL (0.70-1.30); SODIUM 140 mmol/L (136-145); eGFR NON BLACK RACES > 60 (>60)
[2020-06-01 05:15] LABS: PLATELET MORPHOLOGY COMMENT NORMAL (NORMAL)
[2020-06-01] MEDS: CARAFATE ORAL SUSP PO SCH ×4 (05:53→20:27)
[2020-06-01] MEDS: PROTONIX INJ 40 MG VIAL IVP SCH ×2 (08:27→20:28)
--- NOTE | 2020-06-01 09:47 | DR.PROGNOT ---
Hospital Progress Notes - Progress Note for Day of: Progress Note Date: 06/01/20 - Chief Complaint Chief Complaint: no active bleeding . no nausea or vomiting . passing flatus , no bowel movement. denies abdominal pain . no chest pain but having moderate SOB with ambulation . Hgb early this am was 7.1 . - Past Medical Family Social History Past Med/Fam/Surg Hx: No changes since H&P Allergies: Allergies No Known Drug Allergies Allergy (Verified 05/29/20 06:06) - Review Of Systems ROS: No change since H&P - Vital Signs Vital Signs: Temperature 97.8 F Pulse Rate [Bilateral] 91 Pulse Rate 100 Respiratory Rate 18 Blood Pressure [Right Arm] 124/58 Blood Pressure 130/60 O2 Sat by Pulse Oximetry 100 - Physical Exam Oriented: Normal Eyes: Normal Ear: Normal Nose: Normal Throat: Normal Respiratory: Normal Cardiovascular: Normal : Normal GI:Auscultation: Normal GI:Palpation: Normal GI: Tenderness: Normal (soft , flat abdomen , non tender . BS+) Skin: Other (mild edema of the upper extremities ) Musculoskeletal: Normal Psychiatric: Normal Mood Description: Calm, Appropriate Affect: Normal Speech Pattern: Clear, Appropriate - Laboratory and Diagnostics Result Diagrams: 06/01/20 04:35 06/01/20 04:35 Labs: Laboratory WBC 9.4 X10^3/uL (3.6-10.0) 06/01/20 04:35 RBC 2.17 X10^6/uL (4.7-6.0) L 06/01/20 04:35 Hgb 7.1 g/dL (13.5-18.0) L 06/01/20 04:35 Hct 20.6 % (42.0-54.0) L 06/01/20 04:35 MCV 94.7 fL (80.0-100.0) 06/01/20 04:35 MCH 32.5 pg (27.0-34.0) 06/01/20 04:35 MCHC 34.3 g/dL (33.0-35.0) 06/01/20 04:35 RDW 14.8 % (11.6-16.5) 06/01/20 04:35 Plt Count 88 X10^3/uL (150.0-450.0) L 06/01/20 04:35 Plt Count Comment Decreased (ADEQUATE) 06/01/20 04:35 MPV 8.5 fL (7.4-11.0) 06/01/20 04:35 Neut % (Auto) 50.3 % (42.0-75.0) 06/01/20 04:35 Lymph % (Auto) 45.1 % (21.0-51.0) 06/01/20 04:35 [place] % (Auto) 3.0 % (0.0-13.0) 06/01/20 04:35 Eos % (Auto) 1.4 % (0.9-2.9) 06/01/20 04:35 Baso % (Auto) 0.2 % (0.2-1.0) 06/01/20 04:35 Neut # (Auto) 4.7 x10^3/uL (2.2-4.8) 06/01/20 04:35 Lymph # (Auto) 4.2 X10^3/uL (1.3-2.9) H 06/01/20 04:35 [place] # (Auto) 0.3 x10^3/uL (0.3-0.8) 06/01/20 04:35 Eos # (Auto) 0.1 x10^3/uL (0.0-0.2) 06/01/20 04:35 Baso # (Auto) 0.0 X10^3/uL (0.0-0.1) 06/01/20 04:35 Absolute Nucleated RBC 0.1 /100WBC 06/01/20 04:35 Total Counted 100 05/30/20 05:32 Neutrophils % (Manual) 46 % (39-76) 05/30/20 05:32 Lymphocytes % (Manual) 43 % (13-43) 05/30/20 05:32 Monocytes % (Manual) 5 % (4-9) 05/30/20 05:32 Atypical Lymphocytes 6 05/30/20 05:32 Plt Morphology Comment Normal (NORMAL) 06/01/20 04:35 RBC Morphology Abnormal (NORMAL) 06/01/20 04:35 Dimorphic RBCs Slight 06/01/20 04:35 Hypochromasia Slight A 05/31/20 16:33 Anisocytosis 1+ A 05/30/20 05:32 Sample Site Rb 05/29/20 06:26 ABG pH 7.490 (7.35-7.45) H 05/29/20 06:26 ABG pCO2 28.0 mmHg (35.0-45.0) L 05/29/20 06:26 ABG pO2 156.0 mmHg (80.0-100.0) H 05/29/20 06:26 ABG HCO3 21.3 mmol/L (22-26) L 05/29/20 06:26 ABG O2 Saturation 100.0 % (90-100) 05/29/20 06:26 ABG Base Excess -1.0 mmol/L (-2.0-2.0) 05/29/20 06:26 Mac Test N/a 05/29/20 06:26 A-a Gradient -41.0 mmHg 05/29/20 06:26 FiO2 21.0 05/29/20 06:26 Blood Gas Comments Pt aleksandra well eb 05/29/20 06:26 Sodium 140 mmol/L (136-145) 06/01/20 04:35 Corrected Sodium 142 mmol/L (136-145) 06/01/20 04:35 Potassium 3.7 mmol/L (3.5-5.1) 06/01/20 04:35 Chloride 109 mmol/L (98-107) H 06/01/20 04:35 Carbon Dioxide 27.6 mmol/L (21-32) 06/01/20 04:35 BUN 27 mg/dL (7-18) H 06/01/20 04:35 Creatinine 0.93 mg/dL (0.70-1.30) 06/01/20 04:35 Est GFR (MDRD) Af Amer > 60 (>60) 06/01/20 04:35 Est GFR (MDRD) Non-Af > 60 (>60) 06/01/20 04:35 Glucose 199 mg/dL (65-99) H 06/01/20 04:35 POC Glucose (mg/dL) 181 mg/dL (65-99) H 06/01/20 05:29 Calcium 7.7 mg/dL (8.5-10.1) L 06/01/20 04:35 Corrected Calcium 9.3 mg/dL (8.5-10.1) 05/31/20 16:33 Total Bilirubin 0.20 mg/dL (0.2-1.0) 05/31/20 16:33 AST 25 Units/L (15-37) 05/31/20 16:33 ALT 27 Units/L (12-78) 05/31/20 16:33 Alkaline Phosphatase 25 Units/L (46-116) L 05/31/20 16:33 Creatine Kinase 32 Units/L (39-308) L 05/29/20 06:20 CK-MB (CK-2) < 1.0 ng/mL (0-4.0) 05/29/20 06:20 CK/CKMB % Calc 3.1 % (<4) 05/29/20 06:20 Troponin I 0.02 ng/mL (0-1.5) 05/29/20 06:20 Total Protein 4.1 g/dL (6.4-8.2) L 05/31/20 16:33 Albumin 2.1 g/dL (3.4-5.0) L 05/31/20 16:33 Globulin 2.0 g/dL (2.5-4.5) L 05/31/20 16:33 Albumin/Globulin Ratio 1.1 Ratio (1.1-2.1) 05/31/20 16:33 Specimen Type Clean catch urine 05/31/20 11:30 Urine Color Yellow (YELLOW) 05/31/20 11:30 Urine Appearance Clear (CLEAR) 05/31/20 11:30 Urine pH 5.0 (5.0 - 8.0) 05/31/20 11:30 Ur Specific [place] 1.010 (1.000-1.030) 05/31/20 11:30 Urine Protein Negative (NEGATIVE) 05/31/20 11:30 Urine Glucose (UA) 4+ (NEGATIVE) 05/31/20 11:30 Urine Ketones 1+ (NEGATIVE) 05/31/20 11:30 Urine Occult Blood Negative (NEGATIVE) 05/31/20 11:30 Urine Nitrite Negative (NEGATIVE) 05/31/20 11:30 Urine Bilirubin Negative (NEGATIVE) 05/31/20 11:30 Urine Urobilinogen Normal (NORMAL) 05/31/20 11:30 Ur Leukocyte Esterase Negative (NEGATIVE) 05/31/20 11:30 Gastric Fluid pH 4 05/29/20 23:15 Gastric Occult Blood Positive (NEGATIVE) A 05/29/20 23:15 Stool Description Fob tube 05/29/20 07:09 Stl Occult Blood (IFOB) Positive (NEGATIVE) A 05/29/20 07:09 SARS-CoV-2 (PCR) Negative (NEGATIVE) 05/29/20 07:29 Blood Type O POSITIVE 05/29/20 08:02 Antibody Screen Negative 05/29/20 08:02 Crossmatch See Detail 05/29/20 08:02 - Assessment and Plan 1: upper GI bleeding ( duodenitis , ) blood in the duodenum without active b leeding during EGD . severe anemia 2nd to above ( blood loss anemia ). same plan with transfusion and supportive care . - Problem Patient Problems: Patient Problems Symptomatic anemia (Acute) D64.9 Near syncope (Acute) R55 Type 2 diabetes mellitus (Acute) E11.9 BPH loc w urin obs/LUTS (Acute) N40.1
[2020-06-01] MEDS: HumuLIN R SUBCUT PRN ×3 (11:20→20:28)
[2020-06-01 11:44] LABS: TOTAL PROTEIN,URINE 6.6 mg/dl (0-11.9)
[2020-06-01] MEDS ORDERED: LASIX IVP ONE (12:30)
[2020-06-01] MEDS: HEMOCYTE-PLUS PO SCH (12:47)
--- NOTE | 2020-06-01 13:47 | RAD ---
HISTORYShortness of breathSTUDYCHEST, 1 [id number]/2020FINDINGSThere is unchanged interstitial prominence of both lungs. No dense infiltrate or pleural effusion. The cardiac silhouette is unremarkable. No pneumothorax.IMPRESSIONNo significant change from prior.Electronically signed by: LUCIA GILL (Jun 01, 2020 13:44:43)
[2020-06-01 15:27] LABS: EOSINOPHILS # (AUTO) 0.1 x10^3/uL (0.0-0.2); EOSINOPHILS % (AUTO) 1.6 % (0.9-2.9); PLATELET COUNT 110 X10^3/uL (150.0-450.0)
[2020-06-01 15:30] LABS: BASOPHILS % (AUTO) 0.3 % (0.2-1.0); HEMATOCRIT 20.1 % (42.0-54.0); LYMPHOCYTES # (AUTO) 3.3 X10^3/uL (1.3-2.9); LYMPHOCYTES % (AUTO) 42.2 % (21.0-51.0); MEAN CORPUSCULAR HGB CONC 34.7 g/dL (33.0-35.0); MEAN CORPUSCULAR VOLUME 94.9 fL (80.0-100.0); MEAN PLATELET VOLUME 8.4 fL (7.4-11.0); MONOCYTES # (AUTO) 0.1 x10^3/uL (0.3-0.8); MONOCYTES % (AUTO) 1.6 % (0.0-13.0); NEUTROPHILS # (AUTO) 4.3 x10^3/uL (2.2-4.8); NEUTROPHILS % (AUTO) 54.3 % (42.0-75.0); RED BLOOD COUNT 2.11 X10^6/uL (4.7-6.0); RED CELL DISTRIBUTION WIDTH 14.6 % (11.6-16.5); WHITE BLOOD COUNT 7.9 X10^3/uL (3.6-10.0)
[2020-06-01 15:42] LABS: HYPOCHROMASIA 1+; PLATELET MORPHOLOGY COMMENT NORMAL (NORMAL)
[2020-06-01 19:03] LABS: HEMATOCRIT 20.8 % (42.0-54.0); HEMOGLOBIN 7.1 g/dL (13.5-18.0)
--- NOTE | 2020-06-01 20:18 | CT ---
HISTORYGI BLEEDSTUDYABDOMEN/PELVIS WITH CONCOMPARISONNoneTECHNIQUEMultiple axial images of the abdomen and pelvis were obtained from the lung bases to the pubic symphysis after the administration of IV contrast. Dose reduction techniques including Automated Exposure Control (AEC) and adjustment of mA and kV were utilized.FINDINGSBibasilar atelectasis. Coronary calcifications.No acute osseous abnormality. Mild multilevel degenerative changes throughout the visualized spine.The liver, gallbladder, spleen, pancreas, bilateral adrenal glands, and bilateral kidneys demonstrate no significant abnormality.No evidence of bowel obstruction. Diverticulosis without evidence of diverticulitis. The appendix is normal. Evaluation for gastrointestinal bleed is significantly limited due to administration of oral contrast.The bladder is unremarkable. Prominent prostate. Non aneurysmal aorta. Scattered atherosclerotic calcifications throughout the aorta and branch vessels. No free air or fluid.IMPRESSIONNo acute findings. Evaluation for gastrointestinal bleed is severely limited due to administration of oral contrast.Electronically signed by: NEDRA DENNIS (Jun 01, 2020 20:17:08)
[2020-06-01] MEDS: SNACK - Diabetic Appropriate PO SCH (20:27)
[2020-06-01] MEDS: FLOMAX PO SCH (20:27)
[2020-06-01] MEDS: TAB-A-VITE PO SCH (20:28)
[2020-06-01] MEDS: ZOCOR TAB 40 MG PO SCH (20:28)
[2020-06-02] MEDS: NS 1000 ML 1,000 ML IV SCH ×3 (01:13→18:12)
[2020-06-02 01:52] LABS: HEMATOCRIT 19.2 % (42.0-54.0); HEMOGLOBIN 6.6 g/dL (13.5-18.0)
[2020-06-02] MEDS: HumuLIN R SUBCUT PRN ×4 (05:30→22:00)
[2020-06-02] MEDS: CARAFATE ORAL SUSP PO SCH ×4 (05:30→22:00)
[2020-06-02 08:19] LABS: BASOPHILS % (AUTO) 0.4 % (0.2-1.0); EOSINOPHILS # (AUTO) 0.1 x10^3/uL (0.0-0.2); EOSINOPHILS % (AUTO) 1.2 % (0.9-2.9); HEMATOCRIT 23.7 % (42.0-54.0); HEMOGLOBIN 8.1 g/dL (13.5-18.0); LYMPHOCYTES # (AUTO) 2.3 X10^3/uL (1.3-2.9); LYMPHOCYTES % (AUTO) 37.1 % (21.0-51.0); MEAN CORPUSCULAR HEMOGLOBIN 31.3 pg (27.0-34.0); MEAN CORPUSCULAR HGB CONC 34.2 g/dL (33.0-35.0); MEAN CORPUSCULAR VOLUME 91.4 fL (80.0-100.0); MEAN PLATELET VOLUME 7.9 fL (7.4-11.0); MONOCYTES # (AUTO) 0.2 x10^3/uL (0.3-0.8); MONOCYTES % (AUTO) 3.2 % (0.0-13.0); NEUTROPHILS # (AUTO) 3.5 x10^3/uL (2.2-4.8); NEUTROPHILS % (AUTO) 58.1 % (42.0-75.0); PLATELET COUNT 107 X10^3/uL (150.0-450.0); RED CELL DISTRIBUTION WIDTH 16.7 % (11.6-16.5); WHITE BLOOD COUNT 6.1 X10^3/uL (3.6-10.0)
[2020-06-02 08:31] LABS: ALANINE AMINOTRANSFERASE 36 Units/L (12-78); ALBUMIN 2.3 g/dL (3.4-5.0); ALKALINE PHOSPHATASE 35 Units/L (46-116); ASPARTATE AMINO TRANSFERASE 25 Units/L (15-37); BLOOD UREA NITROGEN 13 mg/dL (7-18); CALCIUM 7.8 mg/dL (8.5-10.1); CARBON DIOXIDE 29.4 mmol/L (21-32); CHLORIDE 108 mmol/L (98-107); COR CA(FOR HYPOALB) 9.2 mg/dL (8.5-10.1); COR NA(FOR HYPERGLY) 144 mmol/L (136-145); CREATININE 0.87 mg/dL (0.70-1.30); SODIUM 141 mmol/L (136-145); TOTAL PROTEIN 4.9 g/dL (6.4-8.2); eGFR NON BLACK RACES > 60 (>60)
[2020-06-02] MEDS: HEMOCYTE-PLUS PO SCH (08:44)
[2020-06-02] MEDS: PROTONIX INJ 40 MG VIAL IVP SCH ×2 (08:45→22:00)
[2020-06-02] MEDS ORDERED: CARAFATE ONE (11:54)
[2020-06-02 13:06] LABS: HEMATOCRIT 26.4 % (42.0-54.0); HEMOGLOBIN 8.9 g/dL (13.5-18.0)
--- NOTE | 2020-06-02 13:24 | PCM.PROG ---
Progress Note Progress Note for Day of Date of Exam: 06/02/20 Subjective Subjective: Pt is a 79 year old male pmhx CVA(on ASA 325mg, Plavix 75mg), DMT2, admitted for Symptomatic anemia d/t GI bleed after feeling lightheaded and weak last . He denied any other symptoms. His Hgb was 6.7 on arrival. We ended up transfusing him 3 units prbc that night and when we gave him the [place] prep he started to have lots of black tarry stools. Our surgeon here did an EGD and Colonoscopy Tuesday morning that showed duodenitis, blood in the duodenum without active bleeding. Colonoscopy poor prep and was only able to get up to 30cm wiht no evidence of any active bleeding. On Tuesday he needed another 2 units to keep his hgb at least above 7, and needed another unit overnight when his hgb dropped down to 6.6. His hgb this morning is currently at 8.1. Will continue monitor and repeat H/H at 7PM to see if stabilized. Continue to monitor. Past Medical Family Social History Past Med/Fam/Surg Hx: No changes since H&P Allergies: Allergies No Known Drug Allergies Allergy (Verified 05/29/20 06:06) Review of Systems ROS: No change since H&P Vital Signs and I&O's Vital Signs: Temperature 98.8 F Pulse Rate [Bilateral] 89 Pulse Rate 100 Respiratory Rate 16 Blood Pressure [Right Arm] 116/58 Blood Pressure 130/60 O2 Sat by Pulse Oximetry 100 Intake and Output: Intake & Output 05/30/20 05/31/20 06/01/20 06/02/20 23:59 23:59 23:59 23:59 Intake Total 3616 / 3619 2756 / 2756 1733 / 1733 1030 / 1030 Output Total 3350 / 3350 2250 / 2250 1000 / 1000 Balance 3619 / 1769 -594 / -594 -517 / -517 Physical Exam Oriented: Normal Eyes: Normal Ear: Normal Nose: Normal Throat: Normal Respiratory: Normal Cardiovascular: Normal : Normal Auscultation: Bowel Sounds: Normal Tenderness: Normal (soft , flat abdomen , non tender . BS+) Skin: Other (mild edema of the upper extremities ) Musculoskeletal: Normal Psychiatric: Normal Mood Description: Calm and Appropriate Affect: Normal Speech Pattern: Clear and Appropriate Laboratory and Diagnostics Result Diagrams: 06/03/20 04:05 06/03/20 04:05 Labs: Laboratory WBC 6.1 X10^3/uL (3.6-10.0) 06/02/20 08:12 RBC 2.60 X10^6/uL (4.7-6.0) L 06/02/20 08:12 Hgb 8.9 g/dL (13.5-18.0) L 06/02/20 12:51 Hct 26.4 % (42.0-54.0) L 06/02/20 12:51 MCV 91.4 fL (80.0-100.0) 06/02/20 08:12 MCH 31.3 pg (27.0-34.0) 06/02/20 08:12 MCHC 34.2 g/dL (33.0-35.0) 06/02/20 08:12 RDW 16.7 % (11.6-16.5) H 06/02/20 08:12 Plt Count 107 X10^3/uL (150.0-450.0) L 06/02/20 08:12 Plt Count Comment Decreased (ADEQUATE) 06/01/20 15:10 MPV 7.9 fL (7.4-11.0) 06/02/20 08:12 Neut % (Auto) 58.1 % (42.0-75.0) 06/02/20 08:12 Lymph % (Auto) 37.1 % (21.0-51.0) 06/02/20 08:12 [place] % (Auto) 3.2 % (0.0-13.0) 06/02/20 08:12 Eos % (Auto) 1.2 % (0.9-2.9) 06/02/20 08:12 Baso % (Auto) 0.4 % (0.2-1.0) 06/02/20 08:12 Neut # (Auto) 3.5 x10^3/uL (2.2-4.8) 06/02/20 08:12 Lymph # (Auto) 2.3 X10^3/uL (1.3-2.9) 06/02/20 08:12 [place] # (Auto) 0.2 x10^3/uL (0.3-0.8) L 06/02/20 08:12 Eos # (Auto) 0.1 x10^3/uL (0.0-0.2) 06/02/20 08:12 Baso # (Auto) 0.0 X10^3/uL (0.0-0.1) 06/02/20 08:12 Absolute Nucleated RBC 0.1 /100WBC 06/02/20 08:12 Total Counted 100 05/30/20 05:32 Neutrophils % (Manual) 46 % (39-76) 05/30/20 05:32 Lymphocytes % (Manual) 43 % (13-43) 05/30/20 05:32 Monocytes % (Manual) 5 % (4-9) 05/30/20 05:32 Atypical Lymphocytes 6 05/30/20 05:32 Plt Morphology Comment Normal (NORMAL) 06/01/20 15:10 RBC Morphology Abnormal (NORMAL) 06/01/20 15:10 Dimorphic RBCs Slight 06/01/20 04:35 Hypochromasia 1+ A 06/01/20 15:10 Anisocytosis 1+ A 05/30/20 05:[address] [facility] 05/29/20 06:26 ABG pH 7.490 (7.35-7.45) H 05/29/20 06:26 ABG pCO2 28.0 mmHg (35.0-45.0) L 05/29/20 06:26 ABG pO2 156.0 mmHg (80.0-100.0) H 05/29/20 06:26 ABG HCO3 21.3 mmol/L (22-26) L 05/29/20 06:26 ABG O2 Saturation 100.0 % (90-100) 05/29/20 06:26 ABG Base Excess -1.0 mmol/L (-2.0-2.0) 05/29/20 06:26 Mac Test N/a 05/29/20 06:26 A-a Gradient -41.0 mmHg 05/29/20 06:26 FiO2 21.0 05/29/20 06:26 Blood Gas Comments Pt aleksandra well eb 05/29/20 06:26 Sodium 141 mmol/L (136-145) 06/02/20 08:12 Corrected Sodium 144 mmol/L (136-145) 06/02/20 08:12 Potassium 3.7 mmol/L (3.5-5.1) 06/02/20 08:12 Chloride 108 mmol/L (98-107) H 06/02/20 08:12 Carbon Dioxide 29.4 mmol/L (21-32) 06/02/20 08:12 BUN 13 mg/dL (7-18) 06/02/20 08:12 Creatinine 0.87 mg/dL (0.70-1.30) 06/02/20 08:12 Est GFR (MDRD) Af Amer > 60 (>60) 06/02/20 08:12 Est GFR (MDRD) Non-Af > 60 (>60) 06/02/20 08:12 Glucose 226 mg/dL (65-99) H 06/02/20 08:12 POC Glucose (mg/dL) 187 mg/dL (65-99) H 06/02/20 12:02 Calcium 7.8 mg/dL (8.5-10.1) L 06/02/20 08:12 Corrected Calcium 9.2 mg/dL (8.5-10.1) 06/02/20 08:12 Iron 68 ug/dL (50-175) 05/29/20 06:20 Transferrin 194 mg/dL (202-364) L 05/29/20 06:20 Ferritin 20 ng/mL (26-388) L 05/29/20 06:20 Total Bilirubin 0.40 mg/dL (0.2-1.0) 06/02/20 08:12 AST 25 Units/L (15-37) 06/02/20 08:12 ALT 36 Units/L (12-78) 06/02/20 08:12 Alkaline Phosphatase 35 Units/L (46-116) L 06/02/20 08:12 Creatine Kinase 32 Units/L (39-308) L 05/29/20 06:20 CK-MB (CK-2) < 1.0 ng/mL (0-4.0) 05/29/20 06:20 CK/CKMB % Calc 3.1 % (<4) 05/29/20 06:20 Troponin I 0.02 ng/mL (0-1.5) 05/29/20 06:20 Total Protein 4.9 g/dL (6.4-8.2) L 06/02/20 08:12 Albumin 2.3 g/dL (3.4-5.0) L 06/02/20 08:12 Globulin 2.6 g/dL (2.5-4.5) 06/02/20 08:12 Albumin/Globulin Ratio 0.9 Ratio (1.1-2.1) L 06/02/20 08:12 Vitamin B12 304 pg/mL (193-986) 05/29/20 06:20 Folate 16.6 ng/mL (>8.6) 05/29/20 06:20 Specimen Type Clean catch urine 05/31/20 11:30 Urine Color Yellow (YELLOW) 05/31/20 11:30 Urine Appearance Clear (CLEAR) 05/31/20 11:30 Urine pH 5.0 (5.0 - 8.0) 05/31/20 11:30 Ur Specific [place] 1.010 (1.000-1.030) 05/31/20 11:30 Urine Protein Negative (NEGATIVE) 05/31/20 11:30 Urine Glucose (UA) 4+ (NEGATIVE) 05/31/20 11:30 Urine Ketones 1+ (NEGATIVE) 05/31/20 11:30 Urine Occult Blood Negative (NEGATIVE) 05/31/20 11:30 Urine Nitrite Negative (NEGATIVE) 05/31/20 11:30 Urine Bilirubin Negative (NEGATIVE) 05/31/20 11:30 Urine Urobilinogen Normal (NORMAL) 05/31/20 11:30 Ur Leukocyte Esterase Negative (NEGATIVE) 05/31/20 11:30 Ur 24 Hour Volume 3525 ml/24 hr (800-1800) H 06/01/20 11:20 Ur Total Protein 24 Hr 233 mg/day (0-165) H 06/01/20 11:20 Urine Total Protein 6.6 mg/dl (0-11.9) 06/01/20 11:20 Gastric Fluid pH 4 05/29/20 23:15 Gastric Occult Blood Positive (NEGATIVE) A 05/29/20 23:15 Stool Description Black tarry soft 10g 06/01/20 19:55 Stl Occult Blood (IFOB) Positive (NEGATIVE) A 06/01/20 19:55 SARS-CoV-2 (PCR) Negative (NEGATIVE) 05/29/20 07:29 Blood Type O POSITIVE 06/02/20 02:16 Antibody Screen Negative 06/02/20 02:16 Crossmatch See Detail 06/02/20 02:16 Plan (1) GI bleed: Status: Acute Qualifiers: GI bleed type/associated pathology: unspecified gastrointestinal hemorrhage type Qualified Code(s): K92.2 - Gastrointestinal hemorrhage, unspecified Plan: Trend Hgb, IV Protonix Hgb:8.1 Stool occult positive, gastric occult positive General surgery consulted (2) Symptomatic anemia: Status: Acute
[2020-06-02 19:38] LABS: HEMATOCRIT 24.4 % (42.0-54.0); HEMOGLOBIN 8.2 g/dL (13.5-18.0)
[2020-06-02] MEDS: FLOMAX PO SCH (22:00)
[2020-06-02] MEDS: ZOCOR TAB 40 MG PO SCH (22:00)
[2020-06-02] MEDS: TAB-A-VITE PO SCH (22:00)
[2020-06-02] MEDS: SNACK - Diabetic Appropriate PO SCH (22:13)
[2020-06-03] MEDS: NS 1000 ML 1,000 ML IV SCH ×2 (02:41→04:09)
[2020-06-03 06:07] LABS: BASOPHILS % (AUTO) 0.4 % (0.2-1.0); EOSINOPHILS # (AUTO) 0.1 x10^3/uL (0.0-0.2); EOSINOPHILS % (AUTO) 2.2 % (0.9-2.9); HEMATOCRIT 21.8 % (42.0-54.0); HEMOGLOBIN 7.5 g/dL (13.5-18.0); LYMPHOCYTES # (AUTO) 2.1 X10^3/uL (1.3-2.9); LYMPHOCYTES % (AUTO) 37.9 % (21.0-51.0); MEAN CORPUSCULAR HEMOGLOBIN 31.5 pg (27.0-34.0); MEAN CORPUSCULAR HGB CONC 34.4 g/dL (33.0-35.0); MEAN CORPUSCULAR VOLUME 91.6 fL (80.0-100.0); MEAN PLATELET VOLUME 8.4 fL (7.4-11.0); MONOCYTES # (AUTO) 0.2 x10^3/uL (0.3-0.8); MONOCYTES % (AUTO) 3.2 % (0.0-13.0); NEUTROPHILS # (AUTO) 3.1 x10^3/uL (2.2-4.8); NEUTROPHILS % (AUTO) 56.3 % (42.0-75.0); PLATELET COUNT 135 X10^3/uL (150.0-450.0); RED BLOOD COUNT 2.38 X10^6/uL (4.7-6.0); RED CELL DISTRIBUTION WIDTH 17.1 % (11.6-16.5); WHITE BLOOD COUNT 5.5 X10^3/uL (3.6-10.0)
[2020-06-03] MEDS: CARAFATE ORAL SUSP PO SCH (06:23)
[2020-06-03] MEDS: HumuLIN R SUBCUT PRN (06:23)
[2020-06-03 06:26] LABS: BLOOD UREA NITROGEN 13 mg/dL (7-18); CALCIUM 7.9 mg/dL (8.5-10.1); CARBON DIOXIDE 27.5 mmol/L (21-32); CHLORIDE 107 mmol/L (98-107); COR NA(FOR HYPERGLY) 143 mmol/L (136-145); CREATININE 0.82 mg/dL (0.70-1.30); SODIUM 141 mmol/L (136-145); eGFR NON BLACK RACES > 60 (>60)
[2020-06-03 07:21] LABS: ANISOCYTOSIS SLIGHT; HYPOCHROMASIA 1+; PLATELET MORPHOLOGY COMMENT NORMAL (NORMAL)
[2020-06-03] MEDS: HEMOCYTE-PLUS PO SCH (08:43)
[2020-06-03] MEDS: PROTONIX INJ 40 MG VIAL IVP SCH (08:43)
--- NOTE | 2020-06-03 09:41 | VAS ---
HISTORYLeft arm pain and swelling status post IV insertionSTUDYLeft upper extremity venous Doppler evaluationTechnique: Multiple grayscale sonographic images were obtained. Color duplex Doppler evaluation was performed.COMPARISONNoneFINDINGSThe left jugular vein, subclavian vein, axillary vein, brachial vein, radial and ulnar veins are patent. Thrombus is identified within the left cephalic vein.IMPRESSIONThrombus identified within the left cephalic vein. The remainder of the veins of the left upper extremity appear patent.Electronically signed by: NEDRA DENNIS (Jun 03, 2020 09:39:57)
[2020-06-03 11:53] VITALS: BP 117/57
--- NOTE | 2020-06-03 11:56 | W.DIS.FURT ---
Summary of Discharge Discharge Summary of Date Date of Exam: 06/03/20 Admission Date Date of Admission: 05/29/20 Admission Diagnosis Patient Problems (Updated 05/29/20 @ 13:19 by Robe Storm) Symptomatic anemia (Acute) D64.9 Near syncope (Acute) R55 Type 2 diabetes mellitus (Acute) E11.9 BPH loc w urin obs/LUTS (Acute) N40.1 Hospital Course: Pt is a 79 year old male pmhx CVA(on ASA 325mg, Plavix 75mg) no deficits, DMT2, admitted for Symptomatic anemia d/t GI bleed after feeling lightheaded and weak last . His Hgb was 6.7 on arrival, heme occult positive. He was transfused 3 units prbc that night and given Go-Litely prep when he started to have copious amounts of black tarry stools. Surgery was consulted and performed EGD and Colonoscopy Tuesday morning that showed duodenitis, blood in the duodenum without active bleeding. However, on Tuesday he need another 2 units to keep his hgb at least above 7, and needed another unit yesterday when his hgb dropped down to 6.6. His hgb came back up to 8.9 yesterday and now this morning it has decreased to 7.5. He has received a total of 9 units of prbc during hospital course. It is possible he may have a slow GI bleed that is difficult to detect without further imaging/procedures. Pt to be transferred to [facility] for further evaluation and care. On morning of discharge patient did have some edema in the left arm, stat U/S revealed DVT, notified charge nurse to send records and notify receiving physician/staff when giving report. Pt stable for transfer to facility. Vital Signs: Vital Signs (72 hours) 05/31/20 12:00 05/31/20 13:00 05/31/20 14:00 Temperature 97.7 F Pulse Rate Pulse Rate [Bilateral] 103 H 109 H 98 H Respiratory Rate 25 H 24 23 Blood Pressure Blood Pressure [Right Arm] 111/59 111/56 123/59 O2 Sat by Pulse Oximetry 100 99 100 05/31/20 15:00 05/31/20 16:00 05/31/20 17:00 Temperature 98.0 F Pulse Rate Pulse Rate [Bilateral] 103 H 101 H 107 H Respiratory Rate 23 24 21 Blood Pressure Blood Pressure [Right Arm] 125/58 129/58 92/52 O2 Sat by Pulse Oximetry 98 100 100 05/31/20 18:00 05/31/20 19:00 05/31/20 20:00 Temperature 97.9 F Pulse Rate Pulse Rate [Bilateral] 106 H 100 H 100 H Respiratory Rate 19 18 20 Blood Pressure Blood Pressure [Right Arm] 122/64 118/58 112/59 O2 Sat by Pulse Oximetry 99 99 97 05/31/20 21:00 05/31/20 22:00 05/31/20 23:00 Temperature Pulse Rate Pulse Rate [Bilateral] 99 H 98 H 97 H Respiratory Rate 20 22 24 Blood Pressure Blood Pressure [Right Arm] 108/63 113/56 131/60 O2 Sat by Pulse Oximetry 98 98 99 06/01/20 00:00 06/01/20 01:00 06/01/20 02:00 Temperature 98.0 F Pulse Rate Pulse Rate [Bilateral] 96 H 90 86 Respiratory Rate 18 21 20 Blood Pressure Blood Pressure [Right Arm] 117/59 115/56 112/56 O2 Sat by Pulse Oximetry 98 98 99 06/01/20 03:00 06/01/20 04:00 06/01/20 05:00 Temperature 98.1 F Pulse Rate Pulse Rate [Bilateral] 83 83 81 Respiratory Rate 20 18 18 Blood Pressure Blood Pressure [Right Arm] 107/53 102/55 105/55 O2 Sat by Pulse Oximetry 97 99 99 06/01/20 06:00 06/01/20 07:00 06/01/20 08:00 Temperature 97.8 F Pulse Rate Pulse Rate [Bilateral] 95 H 86 88 Respiratory Rate 22 22 16 Blood Pressure Blood Pressure [Right Arm] 121/57 118/56 123/58 O2 Sat by Pulse Oximetry 98 97 100 06/01/20 09:00 06/01/20 10:00 06/01/20 11:00 Temperature Pulse Rate Pulse Rate [Bilateral] 91 H 109 H 87 Respiratory Rate 18 24 23 Blood Pressure Blood Pressure [Right Arm] 124/58 115/55 120/57 O2 Sat by Pulse Oximetry 100 100 100 06/01/20 12:00 06/01/20 13:00 06/01/20 14:00 Temperature 97.7 F Pulse Rate Pulse Rate [Bilateral] 93 H 94 H 93 H Respiratory Rate 24 30 H 28 H Blood Pressure Blood Pressure [Right Arm] 111/55 119/59 122/60 O2 Sat by Pulse Oximetry 100 98 98 06/01/20 15:00 06/01/20 16:00 06/01/20 17:00 Temperature 97.7 F Pulse Rate Pulse Rate [Bilateral] 94 H 102 H 108 H Respiratory Rate 27 H 26 H 22 Blood Pressure Blood Pressure [Right Arm] 110/52 105/52 136/61 O2 Sat by Pulse Oximetry 99 100 100 06/01/20 18:00 06/01/20 19:00 06/01/20 20:00 Temperature 98.3 F Pulse Rate Pulse Rate [Bilateral] 98 H 100 H 99 H Respiratory Rate 28 H 24 24 Blood Pressure Blood Pressure [Right Arm] 137/67 121/56 124/58 O2 Sat by Pulse Oximetry 100 98 96 06/01/20 21:00 06/01/20 22:00 06/01/20 23:00 Temperature Pulse Rate Pulse Rate [Bilateral] 100 H 93 H 92 H Respiratory Rate 26 H 24 22 Blood Pressure Blood Pressure [Right Arm] 113/56 120/59 113/57 O2 Sat by Pulse Oximetry 96 99 98 06/02/20 00:00 06/02/20 01:00 06/02/20 02:00 Temperature 98.1 F Pulse Rate Pulse Rate [Bilateral] 91 H 91 H 96 H Respiratory Rate 24 19 21 Blood Pressure Blood Pressure [Right Arm] 115/57 126/59 113/58 O2 Sat by Pulse Oximetry 98 100 99 06/02/20 03:00 06/02/20 04:00 06/02/20 05:00 Temperature 98.1 F Pulse Rate Pulse Rate [Bilateral] 101 H 91 H 87 Respiratory Rate 23 23 22 Blood Pressure Blood Pressure [Right Arm] 116/54 107/57 110/55 O2 Sat by Pulse Oximetry 99 99 99 06/02/20 06:00 06/02/20 07:00 06/02/20 08:00 Temperature 98.0 F Pulse Rate Pulse Rate [Bilateral] 93 H 91 H 93 H Respiratory Rate 19 24 24 Blood Pressure Blood Pressure [Right Arm] 126/64 115/70 119/56 O2 Sat by Pulse Oximetry 100 100 100 06/02/20 09:00 06/02/20 10:00 06/02/20 11:00 Temperature Pulse Rate Pulse Rate [Bilateral] 101 H 96 H 90 Respiratory Rate 24 18 20 Blood Pressure Blood Pressure [Right Arm] 119/58 143/66 127/58 O2 Sat by Pulse Oximetry 100 100 99 06/02/20 11:45 06/02/20 12:00 06/02/20 13:00 Temperature 98.8 F Pulse Rate Pulse Rate [Bilateral] 89 89 92 H Respiratory Rate 16 16 24 Blood Pressure Blood Pressure [Right Arm] 116/58 126/58 O2 Sat by Pulse Oximetry 100 100 100 06/02/20 14:00 06/02/20 15:00 06/02/20 16:00 Temperature 98.0 F Pulse Rate Pulse Rate [Bilateral] 91 H 91 H 96 H Respiratory Rate 24 20 23 Blood Pressure Blood Pressure [Right Arm] 127/61 121/60 136/53 O2 Sat by Pulse Oximetry 100 100 100 06/02/20 17:00 06/02/20 18:00 06/02/20 19:00 Temperature Pulse Rate 93 H Pulse Rate [Bilateral] 93 H 100 H Respiratory Rate 24 28 H 31 H Blood Pressure 130/60 Blood Pressure [Right Arm] 134/62 138/84 O2 Sat by Pulse Oximetry 100 100 99 06/02/20 20:00 06/02/20 21:00 06/02/20 22:00 Temperature 99 F Pulse Rate 95 H 95 H 97 H Pulse Rate [Bilateral] Respiratory Rate 25 H 21 29 H Blood Pressure 138/64 114/58 129/60 Blood Pressure [Right Arm] O2 Sat by Pulse Oximetry 98 99 98 06/02/20 23:00 06/03/20 00:00 06/03/20 01:00 Temperature 98.2 F Pulse Rate 96 H 82 94 H Pulse Rate [Bilateral] Respiratory Rate 31 H 23 28 H Blood Pressure 143/67 121/57 Blood Pressure [Right Arm] O2 Sat by Pulse Oximetry 97 97 98 06/03/20 01:01 06/03/20 02:00 06/03/20 02:05 Temperature Pulse Rate 94 H 87 82 Pulse Rate [Bilateral] Respiratory Rate 31 H 26 H 28 H Blood Pressure 149/63 119/62 Blood Pressure [Right Arm] O2 Sat by Pulse Oximetry 98 98 97 06/03/20 03:00 06/03/20 04:00 06/03/20 05:00 Temperature 98.9 F Pulse Rate 88 78 87 Pulse Rate [Bilateral] Respiratory Rate 25 H 20 20 Blood Pressure 125/65 104/55 99/57 Blood Pressure [Right Arm] O2 Sat by Pulse Oximetry 99 97 96 06/03/20 06:00 06/03/20 07:00 06/03/20 08:00 Temperature 98.1 F Pulse Rate 85 87 95 H Pulse Rate [Bilateral] Respiratory Rate 24 26 H 23 Blood Pressure 126/60 117/88 142/65 Blood Pressure [Right Arm] O2 Sat by Pulse Oximetry 98 100 100 06/03/20 09:00 06/03/20 10:00 Temperature Pulse Rate 99 H 97 H Pulse Rate [Bilateral] Respiratory Rate 21 22 Blood Pressure 117/53 117/57 Blood Pressure [Right Arm] O2 Sat by Pulse Oximetry 99 98 Labs: Laboratory Last Values WBC 5.5 X10^3/uL (3.6-10.0) 06/03/20 04:05 RBC 2.38 X10^6/uL (4.7-6.0) L 06/03/20 04:05 Hgb 7.5 g/dL (13.5-18.0) L 06/03/20 04:05 Hct 21.8 % (42.0-54.0) L 06/03/20 04:05 MCV 91.6 fL (80.0-100.0) 06/03/20 04:05 MCH 31.5 pg (27.0-34.0) 06/03/20 04:05 MCHC 34.4 g/dL (33.0-35.0) 06/03/20 04:05 RDW 17.1 % (11.6-16.5) H 06/03/20 04:05 Plt Count 135 X10^3/uL (150.0-450.0) L 06/03/20 04:05 Plt Count Comment Adequate (ADEQUATE) 06/03/20 04:05 MPV 8.4 fL (7.4-11.0) 06/03/20 04:05 Neut % (Auto) 56.3 % (42.0-75.0) 06/03/20 04:05 Lymph % (Auto) 37.9 % (21.0-51.0) 06/03/20 04:05 [place] % (Auto) 3.2 % (0.0-13.0) 06/03/20 04:05 Eos % (Auto) 2.2 % (0.9-2.9) 06/03/20 04:05 Baso % (Auto) 0.4 % (0.2-1.0) 06/03/20 04:05 Neut # (Auto) 3.1 x10^3/uL (2.2-4.8) 06/03/20 04:05 Lymph # (Auto) 2.1 X10^3/uL (1.3-2.9) 06/03/20 04:05 [place] # (Auto) 0.2 x10^3/uL (0.3-0.8) L 06/03/20 04:05 Eos # (Auto) 0.1 x10^3/uL (0.0-0.2) 06/03/20 04:05 Baso # (Auto) 0.0 X10^3/uL (0.0-0.1) 06/03/20 04:05 Absolute Nucleated RBC 0.0 /100WBC 06/03/20 04:05 Total Counted 100 05/30/20 05:32 Neutrophils % (Manual) 46 % (39-76) 05/30/20 05:32 Lymphocytes % (Manual) 43 % (13-43) 05/30/20 05:32 Monocytes % (Manual) 5 % (4-9) 05/30/20 05:32 Atypical Lymphocytes 6 05/30/20 05:32 Plt Morphology Comment Normal (NORMAL) 06/03/20 04:05 RBC Morphology Abnormal (NORMAL) 06/03/20 04:05 Dimorphic RBCs Slight 06/01/20 04:35 Hypochromasia 1+ A 06/03/20 04:05 Anisocytosis Slight A 06/03/20 04:05 Sample Site [facility] 05/29/20 06:26 ABG pH 7.490 (7.35-7.45) H 05/29/20 06:26 ABG pCO2 28.0 mmHg (35.0-45.0) L 05/29/20 06:26 ABG pO2 156.0 mmHg (80.0-100.0) H 05/29/20 06:26 ABG HCO3 21.3 mmol/L (22-26) L 05/29/20 06:26 ABG O2 Saturation 100.0 % (90-100) 05/29/20 06:26 ABG Base Excess -1.0 mmol/L (-2.0-2.0) 05/29/20 06:26 Mac Test N/a 05/29/20 06:26 A-a Gradient -41.0 mmHg 05/29/20 06:26 FiO2 21.0 05/29/20 06:26 Blood Gas Comments Pt aleksandra well eb 05/29/20 06:26 Sodium 141 mmol/L (136-145) 06/03/20 04:05 Corrected Sodium 143 mmol/L (136-145) 06/03/20 04:05 Potassium 3.7 mmol/L (3.5-5.1) 06/03/20 04:05 Chloride 107 mmol/L (98-107) 06/03/20 04:05 Carbon Dioxide 27.5 mmol/L (21-32) 06/03/20 04:05 BUN 13 mg/dL (7-18) 06/03/20 04:05 Creatinine 0.82 mg/dL (0.70-1.30) 06/03/20 04:05 Est GFR (MDRD) Af Amer > 60 (>60) 06/03/20 04:05 Est GFR (MDRD) Non-Af > 60 (>60) 06/03/20 04:05 Glucose 188 mg/dL (65-99) H 06/03/20 04:05 POC Glucose (mg/dL) 211 mg/dL (65-99) H 06/03/20 05:13 Calcium 7.9 mg/dL (8.5-10.1) L 06/03/20 04:05 Corrected Calcium 9.2 mg/dL (8.5-10.1) 06/02/20 08:12 Iron 68 ug/dL (50-175) 05/29/20 06:20 Transferrin 194 mg/dL (202-364) L 05/29/20 06:20 Ferritin 20 ng/mL (26-388) L 05/29/20 06:20 Total Bilirubin 0.40 mg/dL (0.2-1.0) 06/02/20 08:12 AST 25 Units/L (15-37) 06/02/20 08:12 ALT 36 Units/L (12-78) 06/02/20 08:12 Alkaline Phosphatase 35 Units/L (46-116) L 06/02/20 08:12 Creatine Kinase 32 Units/L (39-308) L 05/29/20 06:20 CK-MB (CK-2) < 1.0 ng/mL (0-4.0) 05/29/20 06:20 CK/CKMB % Calc 3.1 % (<4) 05/29/20 06:20 Troponin I 0.02 ng/mL (0-1.5) 05/29/20 06:20 Total Protein 4.9 g/dL (6.4-8.2) L 06/02/20 08:12 Albumin 2.3 g/dL (3.4-5.0) L 06/02/20 08:12 Globulin 2.6 g/dL (2.5-4.5) 06/02/20 08:12 Albumin/Globulin Ratio 0.9 Ratio (1.1-2.1) L 06/02/20 08:12 Vitamin B12 304 pg/mL (193-986) 05/29/20 06:20 Folate 16.6 ng/mL (>8.6) 05/29/20 06:20 Specimen Type Clean catch urine 05/31/20 11:30 Urine Color Yellow (YELLOW) 05/31/20 11:30 Urine Appearance Clear (CLEAR) 05/31/20 11:30 Urine pH 5.0 (5.0 - 8.0) 05/31/20 11:30 Ur Specific [place] 1.010 (1.000-1.030) 05/31/20 11:30 Urine Protein Negative (NEGATIVE) 05/31/20 11:30 Urine Glucose (UA) 4+ (NEGATIVE) 05/31/20 11:30 Urine Ketones 1+ (NEGATIVE) 05/31/20 11:30 Urine Occult Blood Negative (NEGATIVE) 05/31/20 11:30 Urine Nitrite Negative (NEGATIVE) 05/31/20 11:30 Urine Bilirubin Negative (NEGATIVE) 05/31/20 11:30 Urine Urobilinogen Normal (NORMAL) 05/31/20 11:30 Ur Leukocyte Esterase Negative (NEGATIVE) 05/31/20 11:30 Ur 24 Hour Volume 3525 ml/24 hr (800-1800) H 06/01/20 11:20 Ur Total Protein 24 Hr 233 mg/day (0-165) H 06/01/20 11:20 Urine Total Protein 6.6 mg/dl (0-11.9) 06/01/20 11:20 Gastric Fluid pH 4 05/29/20 23:15 Gastric Occult Blood Positive (NEGATIVE) A 05/29/20 23:15 Stool Description Black tarry soft 10g 06/01/20 19:55 Stl Occult Blood (IFOB) Positive (NEGATIVE) A 06/01/20 19:55 SARS-CoV-2 (PCR) Negative (NEGATIVE) 05/29/20 07:29 Blood Type O POSITIVE 06/02/20 02:16 Antibody Screen Negative 06/02/20 02:16 Crossmatch See Detail 06/02/20 02:16 Reason For Visit: SYMPTOMATIC ANEMIA,NEAR SYNCOPE,TYPE 2 DM,BPH Discharge Date Discharge Date: 06/03/20 Discharge Diagnosis All Active Problems (Updated 05/29/20 @ 13:19 by Robe Storm) GI bleed (Acute) Abnormal peripheral vision of left eye (Acute) Symptomatic anemia (Acute) Near syncope (Acute) Type 2 diabetes mellitus (Acute) BPH loc w urin obs/LUTS (Acute) Plan of Treatment: Continue with present treatment and follow up plan. Pt is to keep follow up appointment as instructed and take medications as ordered. Discharge Medications Discharge Medications: No Known Drug Allergies Allergy (Verified 05/29/20 06:06) CONTINUE taking the following medications aspirin 325 mg PO DAILY 05/29/20 [History] cinnamon bark [Cinnamon] 500 mg PO BID 05/29/20 [History] clopidogrel 75 mg PO DAILY 05/29/20 [History] metformin 500 mg PO BID 05/29/20 [History] [id number]-vit K-lycop [Men's 50 Plus Multivitamin] 1 tab PO QHS 05/29/20 [History] simvastatin 40 mg PO HS 05/29/20 [History] tamsulosin 0.4 mg PO HS 05/29/20 [History] Discharge Disposition Discharge Disposition: [facility] Discharge Condition: Stable Discharge Plan Discharge Plan Hospital Course: Pt is a 79 year old male pmhx CVA(on ASA 325mg, Plavix 75mg) no deficits, DMT2, admitted for Symptomatic anemia d/t GI bleed after feeling lightheaded and weak last . His Hgb was 6.7 on arrival, heme occult positive. He was transfused 3 units prbc that night and given Go-Litely prep when he started to have copious amounts of black tarry stools. Surgery was consulted and performed EGD and Colonoscopy Tuesday morning that showed duodenitis, blood in the duodenum without active bleeding. However, on Tuesday he need another 2 units to keep his hgb at least above 7, and needed another unit yesterday when his hgb dropped down to 6.6. His hgb came back up to 8.9 yesterday and now this morning it has decreased to 7.5. He has received a total of 9 units of prbc during hospital course. It is possible he may have a slow GI bleed that is difficult to detect without further imaging/procedures. Pt to be transferred to [facility] for fu rther evaluation and care. On morning of discharge patient did have some edema in the left arm, stat U/S revealed DVT, notified charge nurse to send records and notify receiving physician/staff when giving report. Pt stable for transfer to facility. Patient Disposition: [facility] Condition: Stable Health Concerns: Post Hospitalization: new medications and changes needed to prevent readmission or further decline. Pt educated and given instructions on all concerns. Plan of Treatment: Continue with present treatment and follow up plan. Pt is to keep follow up appointment as instructed and take medications as ordered. Prescriptions: No Action metformin 500 mg tablet 500 mg PO BID RF: 0 aspirin 325 mg Tablet 325 mg PO DAILY RF: 0 clopidogrel 75 mg tablet 75 mg PO DAILY RF: 0 simvastatin 40 mg tablet 40 mg PO HS RF: 0 tamsulosin 0.4 mg capsule 0.4 mg PO HS RF: 0 cinnamon bark [Cinnamon] 500 mg Capsule 500 mg PO BID RF: 0 Men's 50 Plus Multivitamin 400-20-370 mcg Tablet 1 tab PO QHS RF: 0 Orders to Discharge Patient Discharge Orders: Discharge by Transfer to Outside Facility (Routine); Ordered 06/03/20 Ordered By: Robe Storm Follow ups/Referrals Follow ups/Referrals: FELECIA LUCAS [Primary Care Provider] - 3 days Instructions Instructions: Colonoscopy, Adult, Care After, [id number] Stand Alone Forms: Excuse From Work or School, Precautions for COVID19, Patient Portal, Social Distancing
== END 2020-06-03 11:00 | disposition short-term general hospital (02) | DRG 378 ==
LOC: ER 05:54 → MED/SURG 07:35 → ICU 05-30 14:16
PROVIDERS: ADMIT Family Medicine; ATTEND Family Medicine
DX: R26.81 Unsteadiness on feet; E11.9 Type 2 diabetes mellitus without complications; Z20.828 Contact with and (suspected) exposure to other viral communicable diseases; D62 Acute posthemorrhagic anemia; K31.84 Gastroparesis; Z53.8 Procedure and treatment not carried out for other reasons; N40.1 Benign prostatic hyperplasia with lower urinary tract symptoms; I82.622 Acute embolism and thrombosis of deep veins of left upper extremity; R55 Syncope and collapse; Z86.73 Personal history of transient ischemic attack (TIA), and cerebral infarction without residual deficits; K92.2 Gastrointestinal hemorrhage, unspecified

== ENCOUNTER 2020-09-01 17:55 | Inpatient (IN) ==
[2020-09-01 18:09] VITALS: BMI 25.1
[2020-09-01] MEDS ORDERED: TYLENOL 325 MG TAB PO ONE ×2 (18:19→18:23)
[2020-09-01] MEDS ORDERED: NS 1000 ML 1,000 ML IV ONE ×2 (18:32→20:31)
[2020-09-01] MEDS ORDERED: ZOSYN VIAL 3.375 GRAMS 3.375 G in NS 100 ML IV + SPIKE MINIBAG* 100 ML IV ONE (18:34)
[2020-09-01 18:50] LABS: BASOPHILS % (AUTO) 0.7 % (0.2-1.0); EOSINOPHILS % (AUTO) 0.2 % (0.9-2.9); HEMATOCRIT 31.8 % (42.0-54.0); HEMOGLOBIN 10.7 g/dL (13.5-18.0); LYMPHOCYTES # (AUTO) 0.9 X10^3/uL (1.3-2.9); LYMPHOCYTES % (AUTO) 16.7 % (21.0-51.0); MEAN CORPUSCULAR HEMOGLOBIN 30.8 pg (27.0-34.0); MEAN CORPUSCULAR HGB CONC 33.6 g/dL (33.0-35.0); MEAN CORPUSCULAR VOLUME 91.6 fL (80.0-100.0); MEAN PLATELET VOLUME 7.2 fL (7.4-11.0); MONOCYTES # (AUTO) 0.1 x10^3/uL (0.3-0.8); MONOCYTES % (AUTO) 1.5 % (0.0-13.0); NEUTROPHILS # (AUTO) 4.4 x10^3/uL (2.2-4.8); NEUTROPHILS % (AUTO) 80.9 % (42.0-75.0); PLATELET COUNT 253 X10^3/uL (150.0-450.0); RED BLOOD COUNT 3.47 X10^6/uL (4.7-6.0); RED CELL DISTRIBUTION WIDTH 14.8 % (11.6-16.5); WHITE BLOOD COUNT 5.5 X10^3/uL (3.6-10.0)
[2020-09-01 19:00] LABS: ABG BASE EXCESS 2.1 mmol/L (-2.0-2.0); ABG HCO3 25.1 mmol/L (22-26)
--- NOTE | 2020-09-01 19:02 | DR.DIZZY ---
HPI Time seen Time Seen by Provider: 09/01/20 18:07 PCP Primary Care Physician: DR JIM LUCAS HPI Comment HPI Comment: PATIENT WITH A HISTORY OF GASTROINTESTINAL HEMORRHAGE, DVT LEFT ARM, RECENTLY HOSPITALIZED FOR PNEUMONIA 2 WEEKS AGO, FINISHED 10 DAY COURSE OF ANTIBIOTICS, AND HOME OXYGEN. PATIENT NOW COMPLAINS OF GENERALIZED WEAKNESS, DYSPNEA, PRODUCTIVE COUGH WITH YELLOW SPUTUM AND FEVER. DENIES DIAPHORESIS OR CHEST PAIN. Complaint Chief Complaint Doctor Comments: FEVER, PRODUCTIVE COUGH,WEAKNESS, DYPNEA Chief Complaint:: PT IS CURRENTLY BEING TREATED FOR PNEUMONIA. TODAY HE HAD WORSENING GENERALIZED WEAKNESS, FEVER UP TO 103 AND VOMITING. COVID-19 Coronavirus risk:travel/contact w/high risk person: No Has patient experienced Coronavirus symptoms: Yes Coronavirus symptoms experienced: Fever and Shortness of Breath Nurses Notes Reviewed Nurses Notes Review: Yes Source History Provided: EMS Mode of Arrival Mode of Arrival: EMS Timing Onset of Chief Complaint: 09/01/20 Came on: Gradually Onset of Symptoms Start Date: 08/30/20 Duration Duration: Constant Duration: Days Location of Weakness Weakness Location: Generalized Context History of: Anemia, CVA and GI Bleed Stroke Symptoms: None, Ataxia, Aphasia, Acute confusion, Weakness of limb, Numbness of limbs, Slurring and Dizziness Associated signs and symptoms Associated Signs and Symptoms: Weak PMH PMH Past Medical History: Yes Past Medical History: Anemia, Coronary Artery Disease, Diabetes and Dyslipidemia Past Medical History Comment: GI BLEED Past Surgical History: Yes Surgical History: Unknown Family History History of Family Medical Conditions: Yes Family Medical History: Diabetes Mellitus, Cancer and Hypertension Social History Does patient currently use any type of tobacco product: No Have you used tobacco products in the last 12 months: No Type of Tobacco Use: None Does any household member use tobacco: No Alcohol Use: Rarely Do you use any recreational Drugs:: No Lives With: Family Lives Where: Home Travel Risk Coronavirus risk:travel/contact w/high risk person: No Has patient experienced Coronavirus symptoms: Yes Coronavirus symptoms experienced: Fever and Shortness of Breath Infectious screening In the last 2 months have you had wt loss of >10#?: NO Have you had fever, night sweats or hemotysis?: No Have you traveled outside the country in the last 6 months?: No Isolation: Standard ROS Review of Systems Constitutional: No Symptoms Reported, See HPI and Weakness Eyes: No Symptoms Reported ENTM: No Symptoms Reported Respiratoy: See HPI and Productive Cough Cardiovascular: No Symptoms Reported Gastrointestinal/Abdominal: No Symptoms Reported Genitourinary: No Symptoms Reported Neurological: No Symptoms Reported Musculoskeletal: No Symptoms Reported Integumentary: No Symptoms Reported Hematologic/Lymphatic: No Symptoms Reported Endocrine: No Symptoms Reported Psychiatric: No Symptoms Reported All Other Systems: Reviewed and Negative PE Vital Signs Vitals: Temperature 101.3 F Pulse Rate 107 Respiratory Rate 35 Blood Pressure [Right Arm] 138/84 Blood Pressure 109/54 O2 Sat by Pulse Oximetry 97 General Limitations: No Limitations General Appearance: Alert and In No Apparent Distress Head Head Exam: Normal Inspection and Atraumatic Eyes Eye exam: Normal Appearance, PERRL and EOMI Pupils: Regular, Round: Bilateral ENT ENT Exam: Normal Exam and Normal Oropharynx Neck Neck Exam: Normal Inspection, Full ROM and Trachea Midline Chest Chest Inspection: Normal Inspection and Symmetric Chest Wall Rise Respiratory Respiratory Exam: Normal Lung Sounds Bilat (EXCEPT FOR DECREASE BREATH SOUNDS LEFT BASE, NO WHEEZES OR RHONCHI) Respiratory Exam: Bilateral: Clear to Auscultation and Left: Decreased Breath Sounds (LEFT BASE) Cardiovascular Cardiovascular Exam: Tachycardia Abdominal Exam Abdominal Exam: Normal Inspection, Normal Bowel Sounds and Soft Extremeties Extremities Exam: Normal Inspection and Full ROM Back Back Exam: Normal Inspection and Full ROM Neurologic Neurological Exam: Alert Patient Oriented To: Person, Place and Time MDM Differential Diagnosis Differential Diagnosis: Anemia and Dehydration Differential Diagnosis Comment: PNEUMONIA, COVID 19, INFLUENZA COURSE Treatment Treatment: PLACED ON SEPSIS PROTOCOL UPON ARRIVAL 1814, 30ML/KG, ADMINISTERED 1 LITER BOLUS/HR X 2, AFTER 2 SETS OF BLOOD CULTURES ADMINISTERED ZOSYN 3.375GM IVPD, PULSE OX 88% ON ROOM AIR, PULSE OX 95% ON 3 LITERS OXYGEN Consultation Call Returned: 21:12 Consultation Comments: DISCUSSED WITH DR OTERO WITH RESULTS OF LAB TEST AND XRAY RESULTS FOR ADMISSION [facility] Labs Reviewed Laboratory Results Reviewed?: Yes Result Diagrams: 09/01/20 18:18 09/01/20 18:18 Laboratory: WBC 5.5 X10^3/uL (3.6-10.0) 09/01/20 18:18 RBC 3.47 X10^6/uL (4.7-6.0) L 09/01/20 18:18 Hgb 10.7 g/dL (13.5-18.0) L 09/01/20 18:18 Hct 31.8 % (42.0-54.0) L 09/01/20 18:18 MCV 91.6 fL (80.0-100.0) 09/01/20 18:18 MCH 30.8 pg (27.0-34.0) 09/01/20 18:18 MCHC 33.6 g/dL (33.0-35.0) 09/01/20 18:18 RDW 14.8 % (11.6-16.5) 09/01/20 18:18 Plt Count 253 X10^3/uL (150.0-450.0) 09/01/20 18:18 MPV 7.2 fL (7.4-11.0) L 09/01/20 18:18 Neut % (Auto) 80.9 % (42.0-75.0) H 09/01/20 18:18 Lymph % (Auto) 16.7 % (21.0-51.0) L 09/01/20 18:18 [place] % (Auto) 1.5 % (0.0-13.0) 09/01/20 18:18 Eos % (Auto) 0.2 % (0.9-2.9) L 09/01/20 18:18 Baso % (Auto) 0.7 % (0.2-1.0) 09/01/20 18:18 Neut # (Auto) 4.4 x10^3/uL (2.2-4.8) 09/01/20 18:18 Lymph # (Auto) 0.9 X10^3/uL (1.3-2.9) L 09/01/20 18:18 [place] # (Auto) 0.1 x10^3/uL (0.3-0.8) L 09/01/20 18:18 Eos # (Auto) 0.0 x10^3/uL (0.0-0.2) 09/01/20 18:18 Baso # (Auto) 0.0 X10^3/uL (0.0-0.1) 09/01/20 18:18 Absolute Nucleated RBC 0.0 /100WBC 09/01/20 18:18 Sample Site Rb 09/01/20 18:54 ABG pH 7.490 (7.35-7.45) H 09/01/20 18:54 ABG pCO2 33.0 mmHg (35.0-45.0) L 09/01/20 18:54 ABG pO2 93.0 mmHg (80.0-100.0) 09/01/20 18:54 ABG HCO3 25.1 mmol/L (22-26) 09/01/20 18:54 ABG O2 Saturation 98.0 % (90-100) 09/01/20 18:54 ABG Base Excess 2.1 mmol/L (-2.0-2.0) H 09/01/20 18:54 Mac Test Na 09/01/20 18:54 A-a Gradient 94.0 mmHg 09/01/20 18:54 FiO2 32.0 09/01/20 18:54 Blood Gas Comments Ernestina well [facility] 09/01/20 18:54 Sodium 129 mmol/L (136-145) L 09/01/20 18:18 Corrected Sodium 139 mmol/L (136-145) 09/01/20 18:18 Potassium 4.2 mmol/L (3.5-5.1) 09/01/20 18:18 Chloride 95 mmol/L (98-107) L 09/01/20 18:18 Carbon Dioxide 24.0 mmol/L (21-32) 09/01/20 18:18 BUN 34 mg/dL (7-18) H 09/01/20 18:18 Creatinine 1.50 mg/dL (0.70-1.30) H 09/01/20 18:18 Est GFR (MDRD) Af Amer 58 (>60) L 09/01/20 18:18 Est GFR (MDRD) Non-Af 48 (>60) L 09/01/20 18:18 Glucose 518 mg/dL (65-99) H* 09/01/20 18:18 Lactic Acid 1.7 mmol/L (0.4-2.0) 09/01/20 18:18 Calcium 9.6 mg/dL (8.5-10.1) 09/01/20 18:18 Corrected Calcium 11.1 mg/dL (8.5-10.1) H 09/01/20 18:18 Total Bilirubin 0.30 mg/dL (0.2-1.0) 09/01/20 18:18 AST 14 Units/L (15-37) L 09/01/20 18:18 ALT 13 Units/L (12-78) 09/01/20 18:18 Alkaline Phosphatase 65 Units/L (46-116) 09/01/20 18:18 Troponin I < 0.02 ng/mL (0-1.5) 09/01/20 18:18 Total Protein 6.8 g/dL (6.4-8.2) 09/01/20 18:18 Albumin 2.1 g/dL (3.4-5.0) L 09/01/20 18:18 Globulin 4.7 g/dL (2.5-4.5) H 09/01/20 18:18 Albumin/Globulin Ratio 0.4 Ratio (1.1-2.1) L 09/01/20 18:18 SARS-CoV-2 (PCR) Negative (NEGATIVE) 09/01/20 18:45 Influenza Type A (PCR) Negative (NEGATIVE) 09/01/20 18:45 Influenza Type B (PCR) Negative (NEGATIVE) 09/01/20 18:45 RSV (PCR) Negative (NEGATIVE) 09/01/20 18:45 Other Results Comments: AFTER 2 SETS OF BLOOD CULTURES ZOSYN 3.375GM, SOLUMEDROL 125GM IV XRAY XRAY Interpreted by: Radiologist X-ray Results: PORTABLE CHEST XRAY- MODERATE PERIPHERAL AIRSPACE OPACITIES EKG Rate: 131 [place]: LAD Rhythm: NSR and ST Hypertrophy: LAE Opioid Opioid Risk Tool Age (Jose Eduardo box if 16-45): No History of Preadolescent Sexual Abuse: No Total: 0 Total Score Risk Category: Low Risk Copyright: Reece LR predicting aberrant behaviors
[2020-09-01 19:03] LABS: ALANINE AMINOTRANSFERASE 13 Units/L (12-78); ALBUMIN 2.1 g/dL (3.4-5.0); ALKALINE PHOSPHATASE 65 Units/L (46-116); ASPARTATE AMINO TRANSFERASE 14 Units/L (15-37); BLOOD UREA NITROGEN 34 mg/dL (7-18); CALCIUM 9.6 mg/dL (8.5-10.1); CHLORIDE 95 mmol/L (98-107); COR CA(FOR HYPOALB) 11.1 mg/dL (8.5-10.1); COR NA(FOR HYPERGLY) 139 mmol/L (136-145); SODIUM 129 mmol/L (136-145); TOTAL PROTEIN 6.8 g/dL (6.4-8.2); TROPONIN I < 0.02 ng/mL (0-1.5); eGFR NON BLACK RACES 48 (>60)
[2020-09-01 19:05] LABS: LACTIC ACID 1.7 mmol/L (0.4-2.0)
--- NOTE | 2020-09-01 19:05 | RAD ---
HISTORYPT IS CURRENTLY BEING TREATED FOR PNEUMONIA. TODAY HE HAD WORSENING GENERALIZED WEAKNESS, FEVER UP TO 103 AND VOMITING.[facility]CHEST[facility]FINDINGSSUPPORT DEVICES: None.LUNGS/PLEURA: Moderate peripheral airspace opacities. No pleural effusion or space occupying pneumothorax.HEART AND MEDIASTINUM: The cardiac and mediastinum contours appear normal.BONES AND SOFT TISSUES: No acute abnormality.IMPRESSION1. Moderate peripheral airspace opacities, concerning for an atypical infectious process such as Covid pneumonia.Electronically signed by: Kimani Shaikh (Sep 01, 2020 19:03:38)
[2020-09-01] MEDS ORDERED: NS 1000 ML 1,000 ML ONE ×2 (19:12→20:32)
[2020-09-01] MEDS ORDERED: ZOSYN VIAL 3.375 GRAMS IV ONE (19:12)
[2020-09-01] MEDS ORDERED: NS 100 ML IV + SPIKE MINIBAG* 100 ML IV ONE (19:13)
[2020-09-01] MEDS ORDERED: SOLU-Medrol 125 MG VIAL IVP ONE (19:18)
[2020-09-01] MEDS ORDERED: HumuLIN R IV STA (19:23)
[2020-09-01] MEDS ORDERED: SOLU-Medrol 125 MG VIAL ONE (19:29)
[2020-09-01] MEDS ORDERED: HumuLIN R ONE (19:30)
[2020-09-01] MEDS ORDERED: ZITHROMAX INJ 500 MG VIAL 500 MG in D5W 250 ML IV 250 ML IV SCH (21:29)
[2020-09-01] MEDS ORDERED: NS 250 ML IV 250 ML IV ONE (21:43)
[2020-09-01] MEDS ORDERED: ZITHROMAX INJ 500 MG VIAL IV ONE (21:43)
[2020-09-01] MEDS ORDERED: NS 1/2 1000 ML IV 1,000 ML IV ONE (21:44)
[2020-09-01] MEDS: NS 1/2 1000 ML IV 1,000 ML IV SCH (21:53)
[2020-09-02] MEDS ORDERED: ZOSYN VIAL 3.375 GRAMS IV ONE (03:44)
[2020-09-02] MEDS ORDERED: NS 100 ML IV + SPIKE MINIBAG* 100 ML IV ONE (03:45)
[2020-09-02] MEDS: ZOSYN VIAL 3.375 GRAMS 3.375 G in NS 100 ML IV + SPIKE MINIBAG* 100 ML IV SCH ×4 (05:46→21:00)
[2020-09-02 06:50] LABS: BASOPHILS % (AUTO) 0.4 % (0.2-1.0); HEMATOCRIT 33.2 % (42.0-54.0); LYMPHOCYTES # (AUTO) 1.2 X10^3/uL (1.3-2.9); LYMPHOCYTES % (AUTO) 28.3 % (21.0-51.0); MEAN CORPUSCULAR HEMOGLOBIN 30.6 pg (27.0-34.0); MEAN CORPUSCULAR HGB CONC 33.1 g/dL (33.0-35.0); MEAN CORPUSCULAR VOLUME 92.6 fL (80.0-100.0); MEAN PLATELET VOLUME 7.2 fL (7.4-11.0); MONOCYTES # (AUTO) 0 x10^3/uL (0.3-0.8); MONOCYTES % (AUTO) 0.8 % (0.0-13.0); NEUTROPHILS % (AUTO) 70.5 % (42.0-75.0); PLATELET COUNT 250 X10^3/uL (150.0-450.0); RED BLOOD COUNT 3.59 X10^6/uL (4.7-6.0); RED CELL DISTRIBUTION WIDTH 14.6 % (11.6-16.5); WHITE BLOOD COUNT 4.2 X10^3/uL (3.6-10.0)
[2020-09-02 06:51] LABS: ALANINE AMINOTRANSFERASE 12 Units/L (12-78); ALBUMIN 1.9 g/dL (3.4-5.0); ALKALINE PHOSPHATASE 67 Units/L (46-116); ASPARTATE AMINO TRANSFERASE 13 Units/L (15-37); BLOOD UREA NITROGEN 29 mg/dL (7-18); CALCIUM 9.2 mg/dL (8.5-10.1); CARBON DIOXIDE 24.1 mmol/L (21-32); CHLORIDE 101 mmol/L (98-107); COR CA(FOR HYPOALB) 10.9 mg/dL (8.5-10.1); COR NA(FOR HYPERGLY) 145 mmol/L (136-145); CREATININE 1.18 mg/dL (0.70-1.30); SODIUM 135 mmol/L (136-145); TOTAL PROTEIN 6.7 g/dL (6.4-8.2); eGFR NON BLACK RACES > 60 (>60)
[2020-09-02] MEDS: HumuLIN R SC PRN ×4 (07:06→23:07)
[2020-09-02] MEDS ORDERED: GLUCOPHAGE ONE ×2 (08:30→20:40)
[2020-09-02] MEDS: ROBITUSSIN DM PO SCH ×4 (08:59→21:00)
[2020-09-02] MEDS: GLUCOPHAGE PO SCH ×2 (08:59→21:00)
[2020-09-02] MEDS: PROTONIX TAB 40 MG PO SCH (08:59)
[2020-09-02] MEDS ORDERED: PROVENTIL NEB TX 0.083% 2.5MG/ 3ML NEB SCH (09:00)
[2020-09-02] MEDS ORDERED: PLAVIX PO SCH (09:00)
[2020-09-02] MEDS ORDERED: ECOTRIN TAB 325 MG PO SCH (09:00)
[2020-09-02] MEDS: VSL#3 PO SCH (09:00)
[2020-09-02] MEDS ORDERED: JANUVIA PO SCH (09:00)
[2020-09-02] MEDS: PROVENTIL NEB TX 0.083% 2.5MG/ 3ML NEB SCH ×4 (09:25→20:05)
[2020-09-02] MEDS: PULMICORT NEB TX 0.5 MG NEB SCH ×2 (09:25→20:05)
--- NOTE | 2020-09-02 09:27 | DR.H&P ---
H&P History & Physical for Day of: H&P Date: 09/02/20 Chief Complaint Chief Complaint: weakness, cough, chills, SOB Allergies Allergies Allergy/AdvReac Type Severity Reaction Status Date / Time vancomycin Allergy Verified 06/25/20 10:08 History of Present Illness History of Present Illness: MR. Guerrero is a 79y/o male with a PMH of Type 2 DM, anemia, Hx of GI bleed , GERD, HTN presented with worsening productive cough, SOB and chills. Patient was treated for pneumonia at [facility] end of Jul and admitted for 2-3 days. He was discharged on oral antibiotics and home oxygen 3L. Patient was doing ok until last few days, he has been gradually getting weakness and having increased cough and SOB. Yesterday, patient had chills and got really weak so was brought to the ED. ED work-up Labs: WBC 4.2 Hgb 11 Cr: 1.18, down from 1.50 Glucose 498 this AM ABG 7.49/33/93/25 on 3L NC CXR: peripheral opacities concerning for atypical pneumonia COVID (-) Flu (-) Patient was given IVF, started on Zosyn and Azithromycin. He was also given regular insulin for hyperglycemia. Patient is currently on 3L NC same as his home O2 use. Plan: continue IV abx, continue gentle hydration with NS. Resume home medications. Wean O2 as tolerated. Continue duonebs and add Pulmicort. Follow cultures, collect sputum. Initial rapid Covid test was negative. Will send out Resp panel and COVID PCR for confirmation. Monitor AM labs. PT/OT as tolerated. Past Medical History Past Medical History: Anemia, Coronary Artery Disease, Diabetes and Dyslipidemia Past Surgical History Surgical History: Other Family History Family Medical History: Diabetes Mellitus, Cancer and Hypertension Social History Does patient currently use any type of tobacco product: No Have you used tobacco products in the last 12 months: No Type of Tobacco Use: None Does any household member use tobacco: No Alcohol Use: None Drug Use: None Prescription drug monitoring program results: PDMP reviewed and no concerns identified Medications Home Medications: vancomycin Allergy (Verified 06/25/20 10:08) CONTINUE taking the following medications albuterol sulfate 2.5 mg CONTINUOUS NEBULIZATION QID 09/01/20 [History] pantoprazole 40 mg PO DAILY 09/01/20 [History] sitagliptin-metformin [Janumet] 1 tab PO BID 09/01/20 [History] Labs Result Diagrams: 09/02/20 05:38 09/02/20 05:38 Labs: Laboratory WBC 4.2 X10^3/uL (3.6-10.0) 09/02/20 05:38 RBC 3.59 X10^6/uL (4.7-6.0) L 09/02/20 05:38 Hgb 11.0 g/dL (13.5-18.0) L 09/02/20 05:38 Hct 33.2 % (42.0-54.0) L 09/02/20 05:38 MCV 92.6 fL (80.0-100.0) 09/02/20 05:38 MCH 30.6 pg (27.0-34.0) 09/02/20 05:38 MCHC 33.1 g/dL (33.0-35.0) 09/02/20 05:38 RDW 14.6 % (11.6-16.5) 09/02/20 05:38 Plt Count 250 X10^3/uL (150.0-450.0) 09/02/20 05:38 MPV 7.2 fL (7.4-11.0) L 09/02/20 05:38 Neut % (Auto) 70.5 % (42.0-75.0) 09/02/20 05:38 Lymph % (Auto) 28.3 % (21.0-51.0) 09/02/20 05:38 Isabella % (Auto) 0.8 % (0.0-13.0) 09/02/20 05:38 Eos % (Auto) 0.0 % (0.9-2.9) L 09/02/20 05:38 Baso % (Auto) 0.4 % (0.2-1.0) 09/02/20 05:38 Neut # (Auto) 3.0 x10^3/uL (2.2-4.8) 09/02/20 05:38 Lymph # (Auto) 1.2 X10^3/uL (1.3-2.9) L 09/02/20 05:38 Isabella # (Auto) 0 x10^3/uL (0.3-0.8) L 09/02/20 05:38 Eos # (Auto) 0.0 x10^3/uL (0.0-0.2) 09/02/20 05:38 Baso # (Auto) 0.0 X10^3/uL (0.0-0.1) 09/02/20 05:38 Absolute Nucleated RBC 0.1 /100WBC 09/02/20 05:38 Sample Site Rb 09/01/20 18:54 ABG pH 7.490 (7.35-7.45) H 09/01/20 18:54 ABG pCO2 33.0 mmHg (35.0-45.0) L 09/01/20 18:54 ABG pO2 93.0 mmHg (80.0-100.0) 09/01/20 18:54 ABG HCO3 25.1 mmol/L (22-26) 09/01/20 18:54 ABG O2 Saturation 98.0 % (90-100) 09/01/20 18:54 ABG Base Excess 2.1 mmol/L (-2.0-2.0) H 09/01/20 18:54 Mac Test Na 09/01/20 18:54 A-a Gradient 94.0 mmHg 09/01/20 18:54 FiO2 32.0 09/01/20 18:54 Blood Gas Comments Ernestina well [facility] 09/01/20 18:54 Sodium 135 mmol/L (136-145) L 09/02/20 05:38 Corrected Sodium 145 mmol/L (136-145) 09/02/20 05:38 Potassium 3.9 mmol/L (3.5-5.1) 09/02/20 05:38 Chloride 101 mmol/L (98-107) 09/02/20 05:38 Carbon Dioxide 24.1 mmol/L (21-32) 09/02/20 05:38 BUN 29 mg/dL (7-18) H 09/02/20 05:38 Creatinine 1.18 mg/dL (0.70-1.30) 09/02/20 05:38 Est GFR (MDRD) Af Amer > 60 (>60) 09/02/20 05:38 Est GFR (MDRD) Non-Af > 60 (>60) 09/02/20 05:38 Glucose 498 mg/dL (65-99) H 09/02/20 05:38 POC Glucose (mg/dL) 436 mg/dL (65-99) H 09/02/20 05:32 Lactic Acid 1.7 mmol/L (0.4-2.0) 09/01/20 18:18 Calcium 9.2 mg/dL (8.5-10.1) 09/02/20 05:38 Corrected Calcium 10.9 mg/dL (8.5-10.1) H 09/02/20 05:38 Total Bilirubin 0.20 mg/dL (0.2-1.0) 09/02/20 05:38 AST 13 Units/L (15-37) L 09/02/20 05:38 ALT 12 Units/L (12-78) 09/02/20 05:38 Alkaline Phosphatase 67 Units/L (46-116) 09/02/20 05:38 Troponin I < 0.02 ng/mL (0-1.5) 09/01/20 18:18 Total Protein 6.7 g/dL (6.4-8.2) 09/02/20 05:38 Albumin 1.9 g/dL (3.4-5.0) L 09/02/20 05:38 Globulin 4.8 g/dL (2.5-4.5) H 09/02/20 05:38 Albumin/Globulin Ratio 0.4 Ratio (1.1-2.1) L 09/02/20 05:38 SARS-CoV-2 (PCR) Negative (NEGATIVE) 09/01/20 18:45 Influenza Type A (PCR) Negative (NEGATIVE) 09/01/20 18:45 Influenza Type B (PCR) Negative (NEGATIVE) 09/01/20 18:45 RSV (PCR) Negative (NEGATIVE) 09/01/20 18:45 Review of Systems Constitutional: Chills, Weakness and Malaise Eyes: No Symptoms Reported ENT: No Symptoms Reported Respiratory: Cough, SOB with Excertion and Sputum Cardiovascular: No Symptoms Reported Gastrointestinal: Nausea and Diarrhea Genitourinary: No Symptoms Reported Musculoskeletal: No Symptoms Reported Skin: No Symptoms Reported Neurological: No Symptoms Reported Physical Exam Vital Signs: Temperature 98.9 F Pulse Rate [Apical] 93 Pulse Rate 88 Respiratory Rate 22 Blood Pressure [Right Arm] 108/55 Blood Pressure 100/52 O2 Sat by Pulse Oximetry 94 Oriented: Normal Eyes: Normal Ear: Normal Nose: Normal Throat: Normal Respiratory: Diminished Throughout Cardiovascular: Normal Auscultation: Bowel Sounds: Normal Palpation: Normal Tenderness: Normal Skin: Decreased Turgur Musculoskeletal: Normal Psychiatric: Normal Mood Description: Calm Affect: Normal Speech Pattern: Clear and Appropriate Assessment/Plan (1) Pneumonia: Qualifiers: Pneumonia type: due to unspecified organism Laterality: unspecified laterality Lung location: unspecified part of lung Qualified Code(s): J18.9 - Pneumonia, unspecified organism Status: Acute (2) Generalized weakness: Status: Acute (3) Dehydration: Status: Acute (4) Anemia, normocytic normochromic: Status: Acute (5) Uncontrolled type 2 diabetes mellitus: Qualifiers: Glycemic state: with hyperglycemia Qualified Code(s): E11.65 - Type 2 diabetes mellitus with hyperglycemia Status: Acute (6) Type 2 diabetes mellitus: Qualifiers: Diabetes mellitus complication status: with other specified complication Diabetes mellitus mcfp insulin use: without mcfp use Qualified Code(s): E11.69 - Type 2 diabetes mellitus with other specified complication Status: Acute (7) VARSHA (acute kidney injury): Status: Acute (8) Hyperglycemia: Status: Acute (9) Requires oxygen therapy: Status: Acute Review H&P Reviewed: Yes Patient was examined?: Yes
[2020-09-02] MEDS: ZITHROMAX INJ 500 MG VIAL 250 MG in D5W 250 ML IV 250 ML IV SCH ×2 (10:00→21:00)
[2020-09-02] MEDS ORDERED: NS 1/2 1000 ML IV 1,000 ML IV ONE (13:18)
[2020-09-02] MEDS: NS 1/2 1000 ML IV 1,000 ML IV SCH (13:30)
[2020-09-02] MEDS ORDERED: ZITHROMAX INJ 500 MG VIAL IV ONE (14:24)
[2020-09-02] MEDS: LANTUS SC SCH (21:00)
[2020-09-02] MEDS: ZOCOR TAB 40 MG PO SCH (21:00)
[2020-09-02] MEDS ORDERED: ZITHROMAX INJ 500 MG VIAL 500 MG in D5W 250 ML IV 250 ML IV SCH (21:00)
[2020-09-02] MEDS: FLOMAX PO SCH (21:00)
[2020-09-02] MEDS: SNACK - Diabetic Appropriate PO SCH (22:03)
[2020-09-03] MEDS ORDERED: TUSSIONEX PENNKINETIC SUSP ONE (00:20)
[2020-09-03] MEDS: TUSSIONEX PENNKINETIC SUSP PO PRN (00:31)
[2020-09-03] MEDS ORDERED: TYLENOL 325 MG TAB PO ONE (00:36)
[2020-09-03] MEDS: TYLENOL 325 MG TAB PO PRN ×3 (00:46→17:45)
[2020-09-03] MEDS: LANTUS SC SCH ×2 (01:26→21:15)
--- NOTE | 2020-09-03 02:01 | RAD ---
STUDY: CHEST, 1 VIEWCOMPARISON: 09/01/2020HISTORY: SOB, DIAPHORETIC, TACHYCARDIAFINDINGS:There is slight progressively worsening alveolar airspace disease in the bilateral mid and lower lung zones when compared to the prior examination.No pleural effusion is seen. No evidence of pneumothorax.The cardiomediastinal contour is stable. The trachea is midline.IMPRESSION:Progressively worsening alveolar airspace disease is seen in the bilateral mid and lower lung zones. This suggest progression of pulmonary disease.Electronically signed by: Brian Hartman (Sep 03, 2020 01:58:51)
[2020-09-03] MEDS: NS 1/2 1000 ML IV 1,000 ML IV SCH (02:22)
[2020-09-03 04:46] LABS: ABG ALLEN TEST POS; ABG HCO3 25.2 mmol/L (22-26)
[2020-09-03] MEDS: ZOSYN VIAL 3.375 GRAMS 3.375 G in NS 100 ML IV + SPIKE MINIBAG* 100 ML IV SCH ×3 (05:42→21:54)
[2020-09-03] MEDS: HumuLIN R SC PRN ×3 (05:57→17:34)
[2020-09-03 06:24] LABS: BASOPHILS % (AUTO) 0.5 % (0.2-1.0); EOSINOPHILS % (AUTO) 0.2 % (0.9-2.9); HEMATOCRIT 32.6 % (42.0-54.0); HEMOGLOBIN 10.9 g/dL (13.5-18.0); LYMPHOCYTES # (AUTO) 2.6 X10^3/uL (1.3-2.9); LYMPHOCYTES % (AUTO) 29.5 % (21.0-51.0); MEAN CORPUSCULAR HEMOGLOBIN 30.5 pg (27.0-34.0); MEAN CORPUSCULAR HGB CONC 33.4 g/dL (33.0-35.0); MEAN CORPUSCULAR VOLUME 91.4 fL (80.0-100.0); MEAN PLATELET VOLUME 7.2 fL (7.4-11.0); MONOCYTES # (AUTO) 0 x10^3/uL (0.3-0.8); MONOCYTES % (AUTO) 0.6 % (0.0-13.0); NEUTROPHILS % (AUTO) 69.2 % (42.0-75.0); PLATELET COUNT 293 X10^3/uL (150.0-450.0); RED BLOOD COUNT 3.56 X10^6/uL (4.7-6.0); RED CELL DISTRIBUTION WIDTH 14.6 % (11.6-16.5); WHITE BLOOD COUNT 8.6 X10^3/uL (3.6-10.0)
[2020-09-03 06:46] LABS: BLOOD UREA NITROGEN 28 mg/dL (7-18); CALCIUM 9.3 mg/dL (8.5-10.1); CHLORIDE 101 mmol/L (98-107); COR NA(FOR HYPERGLY) 142 mmol/L (136-145); CREATININE 1.14 mg/dL (0.70-1.30); SODIUM 135 mmol/L (136-145); eGFR NON BLACK RACES > 60 (>60)
[2020-09-03] MEDS ORDERED: GLUCOPHAGE ONE (08:24)
[2020-09-03] MEDS: VSL#3 PO SCH (08:38)
[2020-09-03] MEDS: PROTONIX TAB 40 MG PO SCH (08:38)
[2020-09-03] MEDS: ROBITUSSIN DM PO SCH ×4 (08:38→21:52)
[2020-09-03] MEDS: XOPENEX 1.25 MG/3 ML NEBULE NEB SCH ×3 (09:05→20:17)
[2020-09-03] MEDS: PULMICORT NEB TX 0.5 MG NEB SCH ×2 (09:05→20:17)
--- NOTE | 2020-09-03 09:25 | PCM.PROG ---
Progress Note Progress Note for Day of Date of Exam: 09/03/20 Subjective Subjective: Patient seen at bedside, overnight patient had a fever of 102.8. His HR has also been elevated, highest in 130s. He is also requiring more O2 this morning, 5L via NC. He appears weaker and is having chills/rigors on exam. states patient did not eat much last night or this morning. His FSBG remained elevated yesterday, he was started on lantus 15 units last night. Denies N/V/D or abdominal pain. He continues to have productive cough. CXR: worsening airspace disease bilaterally ABG 7.43/38/66/25 sats 93% on 5L Labs: WBC 8.6 Hgb 10.9 BUN/Cr: 28/1.14 Glucose 401 Blood and sputum Cx pending Plan: will get a CT-chest to evaluate pulmonary disease further. Check lactic acid (normal on admission). Order echo to rule out endocarditis due to hx of staph bacteremia. Continue Zosyn and Azithromycin. Wean O2 as tolerated. Increase lantus to 20 units qPM and continue SSI. Follow blood and sputum Cx. Continue bronchodilators. Monitor AM labs. Follow PCR results for resp panel. mentioned that during patient's last admission in [facility], he was noted to have enlarged lymph nodes in the chest so oncology was consulted. Patient had seen oncology for follow up outpatient and plan was to repeat CT scan of the chest. states they were not sure if it's related to infection or could be malignancy. Time spent for clinical assessment, physical exam, reviewing labs/imaging, medical decision making and documentation greater than 75 mins. Past Medical Family Social History Past Med/Fam/Surg Hx: No changes since H&P Allergies: Allergies vancomycin Allergy (Verified 06/25/20 10:08) Review of Systems ROS: No change since H&P Vital Signs and I&O's Vital Signs: Temperature 98.8 F Pulse Rate [Apical] 124 Pulse Rate 130 Respiratory Rate 26 Blood Pressure [Right Arm] 123/63 Blood Pressure 100/52 O2 Sat by Pulse Oximetry 92 Intake and Output: Intake & Output 08/31/20 09/01/20 09/02/20 09/03/20 23:59 23:59 23:59 23:59 Intake Total 4718 / 4718 508 / 508 Output Total 2150 / 2150 550 / 550 Balance 2568 / 2568 -42 / -42 Physical Exam Oriented: Normal Eyes: Normal Ear: Normal Nose: Normal Throat: Normal Respiratory: Generalized, Diminished and Rhonchi Cardiovascular: Tachycardia Auscultation: Bowel Sounds: Normal Tenderness: Normal Skin: Decreased Turgur Musculoskeletal: Normal Psychiatric: Anxiety Mood Description: Calm Affect: Normal Speech Pattern: Appropriate and Delayed Laboratory and Diagnostics Result Diagrams: 09/03/20 06:01 09/03/20 06:01 Labs: 09/02/20 09:15 Sputum - Expectorated Sputum - Final Laboratory WBC 8.6 X10^3/uL (3.6-10.0) 09/03/20 06:01 RBC 3.56 X10^6/uL (4.7-6.0) L 09/03/20 06:01 Hgb 10.9 g/dL (13.5-18.0) L 09/03/20 06:01 Hct 32.6 % (42.0-54.0) L 09/03/20 06:01 MCV 91.4 fL (80.0-100.0) 09/03/20 06:01 MCH 30.5 pg (27.0-34.0) 09/03/20 06:01 MCHC 33.4 g/dL (33.0-35.0) 09/03/20 06:01 RDW 14.6 % (11.6-16.5) 09/03/20 06:01 Plt Count 293 X10^3/uL (150.0-450.0) 09/03/20 06:01 MPV 7.2 fL (7.4-11.0) L 09/03/20 06:01 Neut % (Auto) 69.2 % (42.0-75.0) 09/03/20 06:01 Lymph % (Auto) 29.5 % (21.0-51.0) 09/03/20 06:01 [place] % (Auto) 0.6 % (0.0-13.0) 09/03/20 06:01 Eos % (Auto) 0.2 % (0.9-2.9) L 09/03/20 06:01 Baso % (Auto) 0.5 % (0.2-1.0) 09/03/20 06:01 Neut # (Auto) 6.0 x10^3/uL (2.2-4.8) H 09/03/20 06:01 Lymph # (Auto) 2.6 X10^3/uL (1.3-2.9) 09/03/20 06:01 [place] # (Auto) 0 x10^3/uL (0.3-0.8) L 09/03/20 06:01 Eos # (Auto) 0.0 x10^3/uL (0.0-0.2) 09/03/20 06:01 Baso # (Auto) 0.0 X10^3/uL (0.0-0.1) 09/03/20 06:01 Absolute Nucleated RBC 0.0 /100WBC 09/03/20 06:01 Sample Site Rra 09/03/20 04:44 ABG pH 7.430 (7.35-7.45) 09/03/20 04:44 ABG pCO2 38.0 mmHg (35.0-45.0) 09/03/20 04:44 ABG pO2 66.0 mmHg (80.0-100.0) L 09/03/20 04:44 ABG HCO3 25.2 mmol/L (22-26) 09/03/20 04:44 ABG O2 Saturation 93.0 % (90-100) 09/03/20 04:44 ABG Base Excess 1.0 mmol/L (-2.0-2.0) 09/03/20 04:44 Mac Test Pos 09/03/20 04:44 A-a Gradient 172.0 mmHg 09/03/20 04:44 FiO2 40.0 09/03/20 04:44 Blood Gas Comments Ernestina well mt 09/03/20 04:44 Sodium 135 mmol/L (136-145) L 09/03/20 06:01 Corrected Sodium 142 mmol/L (136-145) 09/03/20 06:01 Potassium 3.9 mmol/L (3.5-5.1) 09/03/20 06:01 Chloride 101 mmol/L (98-107) 09/03/20 06:01 Carbon Dioxide 25.0 mmol/L (21-32) 09/03/20 06:01 BUN 28 mg/dL (7-18) H 09/03/20 06:01 Creatinine 1.14 mg/dL (0.70-1.30) 09/03/20 06:01 Est GFR (MDRD) Af Amer > 60 (>60) 09/03/20 06:01 Est GFR (MDRD) Non-Af > 60 (>60) 09/03/20 06:01 Glucose 401 mg/dL (65-99) H 09/03/20 06:01 POC Glucose (mg/dL) 379 mg/dL (65-99) H 09/03/20 05:25 Lactic Acid 1.7 mmol/L (0.4-2.0) 09/01/20 18:18 Calcium 9.3 mg/dL (8.5-10.1) 09/03/20 06:01 Corrected Calcium 10.9 mg/dL (8.5-10.1) H 09/02/20 05:38 Total Bilirubin 0.20 mg/dL (0.2-1.0) 09/02/20 05:38 AST 13 Units/L (15-37) L 09/02/20 05:38 ALT 12 Units/L (12-78) 09/02/20 05:38 Alkaline Phosphatase 67 Units/L (46-116) 09/02/20 05:38 Troponin I < 0.02 ng/mL (0-1.5) 09/01/20 18:18 Total Protein 6.7 g/dL (6.4-8.2) 09/02/20 05:38 Albumin 1.9 g/dL (3.4-5.0) L 09/02/20 05:38 Globulin 4.8 g/dL (2.5-4.5) H 09/02/20 05:38 Albumin/Globulin Ratio 0.4 Ratio (1.1-2.1) L 09/02/20 05:38 SARS-CoV-2 (PCR) Negative (NEGATIVE) 09/01/20 18:45 Influenza Type A (PCR) Negative (NEGATIVE) 09/01/20 18:45 Influenza Type B (PCR) Negative (NEGATIVE) 09/01/20 18:45 RSV (PCR) Negative (NEGATIVE) 09/01/20 18:45 Plan (1) Pneumonia: Status: Acute Qualifiers: Laterality: unspecified laterality Lung location: unspecified part of lung Pneumonia type: due to unspecified organism Qualified Code(s): J18.9 - Pneumonia, unspecified organism (2) Generalized weakness: Status: Acute (3) Dehydration: Status: Acute (4) Anemia, normocytic normochromic: Status: Acute (5) Uncontrolled type 2 diabetes mellitus: Status: Acute Qualifiers: Glycemic state: with hyperglycemia Qualified Code(s): E11.65 - Type 2 diabetes mellitus with hyperglycemia (6) Type 2 diabetes mellitus: Status: Acute Qualifiers: Diabetes mellitus complication status: with other specified complication Diabetes mellitus detention insulin use: without detention use Qualified Code(s): E11.69 - Type 2 diabetes mellitus with other specified complication (7) VARSHA (acute kidney injury): Status: Acute (8) Hyperglycemia: Status: Acute (9) Requires oxygen therapy: Status: Acute
[2020-09-03] MEDS ORDERED: NS 100 ML IV 100 ML IV ONE (09:50)
[2020-09-03] MEDS ORDERED: NS 500 ML IV 500 ML IV ONE (09:57)
--- NOTE | 2020-09-03 10:48 | CT ---
HISTORY:Worsening hypoxiaStudy: CTA chestComparison:NoneTechnique: Multiple axial images of the chest were obtained after the administration of IV contrast. 3D reconstructions were performed utilizing radial maximum intensity projection imaging. Dose reduction techniques including Automated Exposure Control (AEC) and adjustment of mA and kV were utilized.Findings:Contrast opacification of the pulmonary arteries is adequate to the level of the segmental branches. There are small segmental and subsegmental branch pulmonary emboli seen in the right lower lobe for example axial image 93 and 102. No large central embolism. There are dense bilateral upper and lower lobe areas of consolidation with air bronchograms suggestive of pneumonia. There are small bilateral pleural effusions. There is an indeterminate right upper lobe nodular opacity abutting the aortic arch measuring 9 mm for which continued attention on follow-up is recommended. Additional nodule measuring 8.5 mm is seen in the right lower lobe axial image 70. There is a 1.4 centimeter air-filled space in the right lower lobe, possibly a cyst within the lung but cannot exclude developing cavitation. There are bulky bilateral hilar and mediastinal lymph nodes of uncertain etiology for example largest pretracheal node measuring 2.2 x 2 centimeters and largest sub carinal conglomeration measuring 3.8 x 2.2 centimeters. Differential considerations would include reactive adenopathy versus underlying lymphoproliferative process including lymphoma or metastatic disease, correlate clinically.Bony thorax appears intact. The visualized portions of the upper abdomen are grossly unremarkable.IMPRESSION:Small pulmonary emboli in the right lower lobe as described.Dense bilateral lung infiltrates with air bronchograms compatible with pneumonia. There is a 1.4 centimeter air-filled space in the right lower lobe, possibly an underlying cyst within the lung but cannot exclude developing cavitary pneumonia.Small bilateral pleural effusions.Bulky hilar and mediastinal adenopathy of uncertain etiology. Differential considerations would include underlying lymphoproliferative diseases including lymphoma, metastatic disease, versus reactive lymphadenopathy. Correlate clinically; continued attention on follow-up imaging recommended.Bilateral nodules as described which may be infectious related to the above described pneumonia for which continued attention on follow-up is also needed.Electronically signed by: NATHALIE MANN (Sep 03, 2020 10:47:06)
[2020-09-03] MEDS ORDERED: ELIQUIS PO SCH (11:15)
[2020-09-03] MEDS: NS 1000 ML 1,000 ML IV SCH ×3 (11:39→21:53)
[2020-09-03] MEDS: ZYVOX 600MG IV 600 MG/300 ML BAG IV SCH ×2 (12:35→20:27)
[2020-09-03] MEDS: DIFLUCAN PO SCH (13:18)
[2020-09-03] MEDS: SNACK - Diabetic Appropriate PO SCH (20:05)
[2020-09-03] MEDS: FLOMAX PO SCH (20:26)
[2020-09-03] MEDS: ZOCOR TAB 40 MG PO SCH (20:27)
[2020-09-03] MEDS: ELIQUIS PO SCH (20:42)
[2020-09-03] MEDS: ZITHROMAX TAB 250 MG PO SCH (20:42)
[2020-09-04] MEDS: XOPENEX 1.25 MG/3 ML NEBULE NEB SCH ×3 (05:15→20:46)
[2020-09-04] MEDS: TYLENOL 325 MG TAB PO PRN ×2 (05:48→17:52)
[2020-09-04] MEDS: ZOSYN VIAL 3.375 GRAMS 3.375 G in NS 100 ML IV + SPIKE MINIBAG* 100 ML IV SCH ×3 (05:50→22:26)
[2020-09-04] MEDS: NS 1000 ML 1,000 ML IV SCH ×3 (05:52→17:53)
[2020-09-04] MEDS: HumuLIN R SC PRN ×4 (06:00→21:02)
[2020-09-04 06:06] LABS: BASOPHILS % (AUTO) 0.5 % (0.2-1.0); EOSINOPHILS % (AUTO) 0.6 % (0.9-2.9); HEMATOCRIT 30.9 % (42.0-54.0); HEMOGLOBIN 10.1 g/dL (13.5-18.0); LYMPHOCYTES # (AUTO) 1.8 X10^3/uL (1.3-2.9); MEAN CORPUSCULAR HEMOGLOBIN 30.1 pg (27.0-34.0); MEAN CORPUSCULAR HGB CONC 32.8 g/dL (33.0-35.0); MEAN CORPUSCULAR VOLUME 91.6 fL (80.0-100.0); MONOCYTES # (AUTO) 0 x10^3/uL (0.3-0.8); MONOCYTES % (AUTO) 0.7 % (0.0-13.0); NEUTROPHILS # (AUTO) 4.4 x10^3/uL (2.2-4.8); NEUTROPHILS % (AUTO) 70.2 % (42.0-75.0); PLATELET COUNT 276 X10^3/uL (150.0-450.0); RED BLOOD COUNT 3.37 X10^6/uL (4.7-6.0); RED CELL DISTRIBUTION WIDTH 14.7 % (11.6-16.5); WHITE BLOOD COUNT 6.3 X10^3/uL (3.6-10.0)
[2020-09-04 06:20] LABS: BLOOD UREA NITROGEN 13 mg/dL (7-18); CALCIUM 8.9 mg/dL (8.5-10.1); CARBON DIOXIDE 26.6 mmol/L (21-32); CHLORIDE 101 mmol/L (98-107); COR NA(FOR HYPERGLY) 138 mmol/L (136-145); CREATININE 0.84 mg/dL (0.70-1.30); SODIUM 135 mmol/L (136-145); eGFR NON BLACK RACES > 60 (>60)
[2020-09-04 08:14] LABS: MYCOPLASMA PNEUMONIAE IGM AB NEGATIVE (NEGATIVE)
[2020-09-04] MEDS: PULMICORT NEB TX 0.5 MG NEB SCH ×2 (08:23→20:45)
[2020-09-04] MEDS: ELIQUIS PO SCH ×2 (08:42→20:37)
[2020-09-04] MEDS: DIFLUCAN PO SCH (08:42)
[2020-09-04] MEDS: ZITHROMAX TAB 250 MG PO SCH (08:43)
[2020-09-04] MEDS: PROTONIX TAB 40 MG PO SCH (08:43)
[2020-09-04] MEDS: ROBITUSSIN DM PO SCH ×4 (08:43→20:38)
[2020-09-04] MEDS: VSL#3 PO SCH (08:43)
[2020-09-04] MEDS: ZYVOX 600MG IV 600 MG/300 ML BAG IV SCH ×2 (08:44→20:32)
--- NOTE | 2020-09-04 08:52 | PCM.PROG ---
Progress Note Progress Note for Day of Date of Exam: 09/04/20 Subjective Subjective: Patient seen at bedside, overnight patient had a fever of 100.7. He states he feels better compared to yesterday. He is still on 5L NC. He has some productive cough. Denies N/V/D or abdominal pain. His appetite is slightly better. Yesterday, CTA was done and it did show small PE along with bilateral pneumonia, RLL cyst/cavitary pneumonia. It also showed enlarged lymph nodes and hilar adenopathy 2/2 to infection, malignancy or metastatic disease. Patient's prev CT done in [facility] also had showed similar findings and patient has been seeing oncology outpatient. Labs: WBC 6.3 Hgb 10.1 BUN/Cr: 13/0.84 Glucose 212 Repeat COVID (-) Lactic acid 1.0 Sputum: normal zuhair, yeast Blood Cx pending Echo: EG 71%, aortic valve sclerosis, mild-mod pulmonary HTN, no vegetation noted Plan: Patient was started on Eliquis yesterday, denies any bleeding. Continue Zosyn/Azithromycin/Zyvox for broaden coverage of MRSA, atypical and pseudomonas. Continue Diflucan for yeast in sputum. Follow blood Cx. Wean O2 as tolerated. Continue lantus and SSI. Continue bronchodilators. Will repeat CXR today. Replace K. Follow PCR results for resp panel. Decrease IVF to KVO. Time spent for clinical assessment, physical exam, reviewing labs/imaging, medical decision making and documentation greater than 75 mins. Past Medical Family Social History Past Med/Fam/Surg Hx: No changes since H&P Allergies: Allergies vancomycin Allergy (Verified 06/25/20 10:08) Review of Systems ROS: No change since H&P Vital Signs and I&O's Vital Signs: Temperature 100.7 F Pulse Rate [Apical] 114 Pulse Rate 110 Respiratory Rate 22 Blood Pressure [Right Arm] 119/71 Blood Pressure 100/52 O2 Sat by Pulse Oximetry 97 Intake and Output: Intake & Output 09/01/20 09/02/20 09/03/20 09/04/20 23:59 23:59 23:59 23:59 Intake Total 4718 / 4718 3765 / 3765 694 / 694 Output Total 2150 / 2150 800 / 800 450 / 450 Balance 2568 / 2568 2965 / 2965 244 / 244 Physical Exam Oriented: Normal Eyes: Normal Ear: Normal Nose: Normal Throat: Normal Respiratory: Generalized, Rales and Rhonchi Cardiovascular: Tachycardia, Systolic and Murmur Auscultation: Bowel Sounds: Normal Tenderness: Normal Skin: Decreased Turgur Musculoskeletal: Normal Psychiatric: Normal Mood Description: Calm Affect: Normal Speech Pattern: Clear and Appropriate Laboratory and Diagnostics Result Diagrams: 09/04/20 05:45 09/04/20 05:45 Labs: 09/02/20 09:15 Sputum - Expectorated Sputum Sputum Culture - Final 09/02/20 09:15 Sputum - Expectorated Sputum - Final Laboratory WBC 6.3 X10^3/uL (3.6-10.0) 09/04/20 05:45 RBC 3.37 X10^6/uL (4.7-6.0) L 09/04/20 05:45 Hgb 10.1 g/dL (13.5-18.0) L 09/04/20 05:45 Hct 30.9 % (42.0-54.0) L 09/04/20 05:45 MCV 91.6 fL (80.0-100.0) 09/04/20 05:45 MCH 30.1 pg (27.0-34.0) 09/04/20 05:45 MCHC 32.8 g/dL (33.0-35.0) L 09/04/20 05:45 RDW 14.7 % (11.6-16.5) 09/04/20 05:45 Plt Count 276 X10^3/uL (150.0-450.0) 09/04/20 05:45 MPV 7.0 fL (7.4-11.0) L 09/04/20 05:45 Neut % (Auto) 70.2 % (42.0-75.0) 09/04/20 05:45 Lymph % (Auto) 28.0 % (21.0-51.0) 09/04/20 05:45 [place] % (Auto) 0.7 % (0.0-13.0) 09/04/20 05:45 Eos % (Auto) 0.6 % (0.9-2.9) L 09/04/20 05:45 Baso % (Auto) 0.5 % (0.2-1.0) 09/04/20 05:45 Neut # (Auto) 4.4 x10^3/uL (2.2-4.8) 09/04/20 05:45 Lymph # (Auto) 1.8 X10^3/uL (1.3-2.9) 09/04/20 05:45 [place] # (Auto) 0 x10^3/uL (0.3-0.8) L 09/04/20 05:45 Eos # (Auto) 0.0 x10^3/uL (0.0-0.2) 09/04/20 05:45 Baso # (Auto) 0.0 X10^3/uL (0.0-0.1) 09/04/20 05:45 Absolute Nucleated RBC 0.0 /100WBC 09/04/20 05:45 Sample Site Rra 09/03/20 04:44 ABG pH 7.430 (7.35-7.45) 09/03/20 04:44 ABG pCO2 38.0 mmHg (35.0-45.0) 09/03/20 04:44 ABG pO2 66.0 mmHg (80.0-100.0) L 09/03/20 04:44 ABG HCO3 25.2 mmol/L (22-26) 09/03/20 04:44 ABG O2 Saturation 93.0 % (90-100) 09/03/20 04:44 ABG Base Excess 1.0 mmol/L (-2.0-2.0) 09/03/20 04:44 Mac Test Pos 09/03/20 04:44 A-a Gradient 172.0 mmHg 09/03/20 04:44 FiO2 40.0 09/03/20 04:44 Blood Gas Comments Ernestina well mt 09/03/20 04:44 Sodium 135 mmol/L (136-145) L 09/04/20 05:45 Corrected Sodium 138 mmol/L (136-145) 09/04/20 05:45 Potassium 3.4 mmol/L (3.5-5.1) L 09/04/20 05:45 Chloride 101 mmol/L (98-107) 09/04/20 05:45 Carbon Dioxide 26.6 mmol/L (21-32) 09/04/20 05:45 BUN 13 mg/dL (7-18) 09/04/20 05:45 Creatinine 0.84 mg/dL (0.70-1.30) 09/04/20 05:45 Est GFR (MDRD) Af Amer > 60 (>60) 09/04/20 05:45 Est GFR (MDRD) Non-Af > 60 (>60) 09/04/20 05:45 Glucose 212 mg/dL (65-99) H 09/04/20 05:45 POC Glucose (mg/dL) 190 mg/dL (65-99) H 09/04/20 05:10 Lactic Acid 1.0 mmol/L (0.4-2.0) 09/04/20 05:45 Calcium 8.9 mg/dL (8.5-10.1) 09/04/20 05:45 Corrected Calcium 10.9 mg/dL (8.5-10.1) H 09/02/20 05:38 Total Bilirubin 0.20 mg/dL (0.2-1.0) 09/02/20 05:38 AST 13 Units/L (15-37) L 09/02/20 05:38 ALT 12 Units/L (12-78) 09/02/20 05:38 Alkaline Phosphatase 67 Units/L (46-116) 09/02/20 05:38 Troponin I < 0.02 ng/mL (0-1.5) 09/01/20 18:18 Total Protein 6.7 g/dL (6.4-8.2) 09/02/20 05:38 Albumin 1.9 g/dL (3.4-5.0) L 09/02/20 05:38 Globulin 4.8 g/dL (2.5-4.5) H 09/02/20 05:38 Albumin/Globulin Ratio 0.4 Ratio (1.1-2.1) L 09/02/20 05:38 SARS-CoV-2 (PCR) Negative (NEGATIVE) 09/01/20 18:45 Influenza Type A (PCR) Negative (NEGATIVE) 09/01/20 18:45 Influenza Type B (PCR) Negative (NEGATIVE) 09/01/20 18:45 Mycoplasma pneumon IgG Negative (NEGATIVE) 09/03/20 08:54 RSV (PCR) Negative (NEGATIVE) 09/01/20 18:45 SARS CoV-2 RNA Rapid GISELLA Negative (NEGATIVE) 09/03/20 10:22 Plan (1) Cavitary pneumonia: Status: Acute (2) Pulmonary emboli: Status: Acute Qualifiers: Pulmonary embolism type: multiple subsegmental (without acute cor pulmonale) Qualified Code(s): I26.94 - Multiple subsegmental pulmonary emboli without acute cor pulmonale (3) Pneumonia: Status: Acute Qualifiers: Laterality: unspecified laterality Lung location: unspecified part of lung Pneumonia type: due to unspecified organism Qualified Code(s): J18.9 - Pneumonia, unspecified organism (4) Sepsis: Status: Acute Qualifiers: Sepsis acute organ dysfunction status: without acute organ dysfunction Sepsis type: sepsis due to unspecified organism Qualified Code(s): A41.9 - Sepsis, unspecified organism (5) Generalized weakness: Status: Acute (6) Dehydration: Status: Acute (7) Anemia, normocytic normochromic: Status: Acute (8) Uncontrolled type 2 diabetes mellitus: Status: Acute Qualifiers: Glycemic state: with hyperglycemia Qualified Code(s): E11.65 - Type 2 diabetes mellitus with hyperglycemia (9) Type 2 diabetes mellitus: Status: Acute Qualifiers: Diabetes mellitus complication status: with other specified complication Diabetes mellitus manager intermediate insulin use: without [place] [facility] use Qualified Cod e(s): E11.69 - Type 2 diabetes mellitus with other specified complication (10) VARSHA (acute kidney injury): Status: Acute (11) Hyperglycemia: Status: Acute (12) Requires oxygen therapy: Status: Acute (13) Hypokalemia: Status: Acute (14) Moderate pulmonary hypertension: Status: Acute (15) Aortic stenosis: Status: Acute Qualifiers: Cardiac valve disease etiology: nonrheumatic Qualified Code(s): I35.0 - Nonrheumatic aortic (valve) stenosis
--- NOTE | 2020-09-04 10:02 | RAD ---
HISTORYHYPOXIASTUDYCHEST, 1 VIEWCOMPARISONChest film September 03, 2020.FINDINGSThe trachea is midline. The cardiac silhouette is unremarkable. Dense alveolar infiltrates are seen bilaterally without change from yesterday's exam.. The bony thorax is unremarkable.IMPRESSIONNo change in the bilateral dense alveolar infiltrates left greater than right when compared to yesterday's exam. Findings are consistent with pneumonia. No effusion is observed.Electronically signed by: KANA SNEED (Sep 04, 2020 10:00:18)
[2020-09-04] MEDS: K-DUR TAB 20 MEQ PO SCH ×2 (10:25→20:37)
[2020-09-04] MEDS: ZOCOR TAB 40 MG PO SCH (20:37)
[2020-09-04] MEDS: FLOMAX PO SCH (20:37)
[2020-09-04] MEDS: LANTUS SC SCH (20:39)
[2020-09-04] MEDS: SNACK - Diabetic Appropriate PO SCH (20:58)
[2020-09-04] MEDS ORDERED: K-DUR TAB 20 MEQ PO PRN (21:08)
[2020-09-04] MEDS ORDERED: POTASSIUM CHL 40 MEQ/NS 0.45% 500 ML IV PRN (21:08)
[2020-09-04] MEDS ORDERED: K-RIDER 10 MEQ/NS 100 ML 10 MEQ/100 ML BAG IV PRN (21:08)
[2020-09-04] MEDS ORDERED: POTASSIUM CHLORIDE LIQ 20 MEQ UDC PO PRN (21:08)
[2020-09-04] MEDS ORDERED: MICRO K EXTEN CAP 10 MEQ PO PRN (21:08)
[2020-09-04] MEDS ORDERED: KLOR-CON PO PRN (21:08)
[2020-09-04] MEDS ORDERED: POTASSIUM CHL 60 MEQ/NS 0.45% 500 ML IV PRN (21:08)
[2020-09-04] MEDS: MAGNESIUM SULFATE 1 GRAM/100 mL PREMIX 1 GM/100 ML BAG IV PRN ×2 (22:34→23:31)
[2020-09-05] MEDS: TUSSIONEX PENNKINETIC SUSP PO PRN ×2 (00:35→20:47)
[2020-09-05] MEDS: NS 1000 ML 1,000 ML IV SCH ×3 (02:20→18:04)
[2020-09-05] MEDS: ZOSYN VIAL 3.375 GRAMS 3.375 G in NS 100 ML IV + SPIKE MINIBAG* 100 ML IV SCH ×3 (05:08→22:13)
[2020-09-05] MEDS: HumuLIN R SC PRN ×4 (05:40→21:07)
[2020-09-05] MEDS: XOPENEX 1.25 MG/3 ML NEBULE NEB SCH ×3 (05:58→20:52)
[2020-09-05 06:08] LABS: BASOPHILS % (AUTO) 0.7 % (0.2-1.0); EOSINOPHILS # (AUTO) 0.1 x10^3/uL (0.0-0.2); LYMPHOCYTES % (AUTO) 36.2 % (21.0-51.0); MEAN CORPUSCULAR HEMOGLOBIN 29.8 pg (27.0-34.0); MEAN CORPUSCULAR HGB CONC 32.4 g/dL (33.0-35.0); MEAN CORPUSCULAR VOLUME 92.1 fL (80.0-100.0); MEAN PLATELET VOLUME 6.8 fL (7.4-11.0); MONOCYTES # (AUTO) 0.1 x10^3/uL (0.3-0.8); MONOCYTES % (AUTO) 1.2 % (0.0-13.0); NEUTROPHILS # (AUTO) 3.4 x10^3/uL (2.2-4.8); NEUTROPHILS % (AUTO) 59.9 % (42.0-75.0); PLATELET COUNT 246 X10^3/uL (150.0-450.0); RED BLOOD COUNT 3.37 X10^6/uL (4.7-6.0); RED CELL DISTRIBUTION WIDTH 15.1 % (11.6-16.5); WHITE BLOOD COUNT 5.6 X10^3/uL (3.6-10.0)
[2020-09-05 06:24] LABS: BLOOD UREA NITROGEN 8 mg/dL (7-18); CALCIUM 8.5 mg/dL (8.5-10.1); CARBON DIOXIDE 29.6 mmol/L (21-32); CHLORIDE 101 mmol/L (98-107); COR NA(FOR HYPERGLY) 139 mmol/L (136-145); CREATININE 0.87 mg/dL (0.70-1.30); MAGNESIUM 2.2 mg/dL (1.7-2.9); SODIUM 136 mmol/L (136-145); eGFR NON BLACK RACES > 60 (>60)
[2020-09-05] MEDS: ZITHROMAX TAB 250 MG PO SCH (08:51)
[2020-09-05] MEDS: DIFLUCAN PO SCH (08:51)
[2020-09-05] MEDS: ELIQUIS PO SCH ×2 (08:51→20:46)
[2020-09-05] MEDS: K-DUR TAB 20 MEQ PO SCH ×2 (08:51→20:45)
[2020-09-05] MEDS: PROTONIX TAB 40 MG PO SCH (08:51)
[2020-09-05] MEDS: VSL#3 PO SCH (08:52)
[2020-09-05] MEDS: ZYVOX 600MG IV 600 MG/300 ML BAG IV SCH ×2 (08:52→20:44)
[2020-09-05] MEDS: TYLENOL 325 MG TAB PO PRN ×2 (08:52→22:20)
[2020-09-05] MEDS: ROBITUSSIN DM PO SCH ×4 (08:52→20:47)
[2020-09-05] MEDS: PULMICORT NEB TX 0.5 MG NEB SCH ×2 (09:02→20:52)
--- NOTE | 2020-09-05 11:27 | PCM.PROG ---
Progress Note Progress Note for Day of Date of Exam: 09/05/20 Subjective Subjective: Patient seen at bedside, he states he is feeling slightly better. He has remained afebrile overnight, Tmax 99.8. He continues to have productive cough with green/yellow sputum. He still has decreased appetite. He is back to using 3L O2 which is what he was using at home. He states his breathing is almost back to baseline. His reports that patient full and bloated yesterday after he ate. Denies any N/V/D. Denies melena or any GI bleed. Recent CXR (09/04/20): similar bilateral pneumonia, no effusion CTA :small PE along with bilateral pneumonia, RLL cyst/cavitary pneumonia. It a lso showed enlarged lymph nodes and hilar adenopathy 2/2 to infection, malignancy or metastatic disease. Patient's prev CT done in [facility] also had showed similar findings and patient has been seeing oncology outpatient. Labs: WBC 5.6 Hgb 10.0 BUN/Cr: 8/0.87 Glucose 236 Repeat COVID (-) Lactic acid 1.3 Sputum: normal zuhair, yeast Blood Cx x 2 negative Echo: EF 71%, aortic valve sclerosis, mild-mod pulmonary HTN, no vegetation noted Plan: Wean O2 as tolerated, continue IS, bronchodilators. Continue IV antibiotics. Continue Eliquis for PE. Monitor H/H and signs of bleeding. Will restart iron supplement BID. Continue lantus and SSI. Will add Ensure with each meal. Increase IVF to 50cc/hr. PT/OT as tolerated. Time spent for clinical assessment, physical exam, reviewing labs/imaging, medical decision making and documentation greater than 75 mins. Past Medical Family Social History Past Med/Fam/Surg Hx: No changes since H&P Allergies: Allergies vancomycin Allergy (Verified 06/25/20 10:08) Review of Systems ROS: No change since H&P Vital Signs and I&O's Vital Signs: Temperature 99.6 F Pulse Rate [Apical] 114 Pulse Rate 116 Respiratory Rate 19 Blood Pressure [Right Arm] 138/69 Blood Pressure 100/52 O2 Sat by Pulse Oximetry 92 Intake and Output: Intake & Output 09/02/20 09/03/20 09/04/20 09/05/20 23:59 23:59 23:59 23:59 Intake Total 4718 / 4718 3765 / 3765 2811 / 2811 566 / 566 Output Total 2150 / 2150 800 / 800 1100 / 1100 600 / 600 Balance 2568 / 2568 2965 / 2965 1711 / 1711 -34 / -34 Physical Exam Oriented: Normal Eyes: Normal Ear: Normal Nose: Normal Throat: Normal Respiratory: Generalized, Rales and Rhonchi Cardiovascular: Tachycardia, Systolic and Murmur Auscultation: Bowel Sounds: Normal Tenderness: Normal Skin: Decreased Turgur Musculoskeletal: Normal Psychiatric: Normal Mood Description: Calm Affect: Normal Speech Pattern: Clear and Appropriate Laboratory and Diagnostics Result Diagrams: 09/05/20 05:40 09/05/20 05:40 Labs: 09/02/20 09:13 Blood Blood Culture - Preliminary 09/02/20 09:03 Blood Blood Culture - Preliminary 09/02/20 09:15 Sputum - Expectorated Sputum Sputum Culture - Final 09/02/20 09:15 Sputum - Expectorated Sputum - Final Laboratory WBC 5.6 X10^3/uL (3.6-10.0) 09/05/20 05:40 RBC 3.37 X10^6/uL (4.7-6.0) L 09/05/20 05:40 Hgb 10.0 g/dL (13.5-18.0) L 09/05/20 05:40 Hct 31.0 % (42.0-54.0) L 09/05/20 05:40 MCV 92.1 fL (80.0-100.0) 09/05/20 05:40 MCH 29.8 pg (27.0-34.0) 09/05/20 05:40 MCHC 32.4 g/dL (33.0-35.0) L 09/05/20 05:40 RDW 15.1 % (11.6-16.5) 09/05/20 05:40 Plt Count 246 X10^3/uL (150.0-450.0) 09/05/20 05:40 MPV 6.8 fL (7.4-11.0) L 09/05/20 05:40 Neut % (Auto) 59.9 % (42.0-75.0) 09/05/20 05:40 Lymph % (Auto) 36.2 % (21.0-51.0) 09/05/20 05:40 [place] % (Auto) 1.2 % (0.0-13.0) 09/05/20 05:40 Eos % (Auto) 2.0 % (0.9-2.9) 09/05/20 05:40 Baso % (Auto) 0.7 % (0.2-1.0) 09/05/20 05:40 Neut # (Auto) 3.4 x10^3/uL (2.2-4.8) 09/05/20 05:40 Lymph # (Auto) 2.0 X10^3/uL (1.3-2.9) 09/05/20 05:40 [place] # (Auto) 0.1 x10^3/uL (0.3-0.8) L 09/05/20 05:40 Eos # (Auto) 0.1 x10^3/uL (0.0-0.2) 09/05/20 05:40 Baso # (Auto) 0.0 X10^3/uL (0.0-0.1) 09/05/20 05:40 Absolute Nucleated RBC 0.0 /100WBC 09/05/20 05:40 Sample Site Rra 09/03/20 04:44 ABG pH 7.430 (7.35-7.45) 09/03/20 04:44 ABG pCO2 38.0 mmHg (35.0-45.0) 09/03/20 04:44 ABG pO2 66.0 mmHg (80.0-100.0) L 09/03/20 04:44 ABG HCO3 25.2 mmol/L (22-26) 09/03/20 04:44 ABG O2 Saturation 93.0 % (90-100) 09/03/20 04:44 ABG Base Excess 1.0 mmol/L (-2.0-2.0) 09/03/20 04:44 Mac Test Pos 09/03/20 04:44 A-a Gradient 172.0 mmHg 09/03/20 04:44 FiO2 40.0 09/03/20 04:44 Blood Gas Comments Ernestina well mt 09/03/20 04:44 Sodium 136 mmol/L (136-145) 09/05/20 05:40 Corrected Sodium 139 mmol/L (136-145) 09/05/20 05:40 Potassium 4.0 mmol/L (3.5-5.1) 09/05/20 05:40 Chloride 101 mmol/L (98-107) 09/05/20 05:40 Carbon Dioxide 29.6 mmol/L (21-32) 09/05/20 05:40 BUN 8 mg/dL (7-18) 09/05/20 05:40 Creatinine 0.87 mg/dL (0.70-1.30) 09/05/20 05:40 Est GFR (MDRD) Af Amer > 60 (>60) 09/05/20 05:40 Est GFR (MDRD) Non-Af > 60 (>60) 09/05/20 05:40 Glucose 236 mg/dL (65-99) H 09/05/20 05:40 POC Glucose (mg/dL) 219 mg/dL (65-99) H 09/05/20 05:21 Lactic Acid 1.3 mmol/L (0.4-2.0) 09/05/20 09:08 Calcium 8.5 mg/dL (8.5-10.1) 09/05/20 05:40 Corrected Calcium 10.9 mg/dL (8.5-10.1) H 09/02/20 05:38 Magnesium 2.2 mg/dL (1.7-2.9) 09/05/20 05:40 Total Bilirubin 0.20 mg/dL (0.2-1.0) 09/02/20 05:38 AST 13 Units/L (15-37) L 09/02/20 05:38 ALT 12 Units/L (12-78) 09/02/20 05:38 Alkaline Phosphatase 67 Units/L (46-116) 09/02/20 05:38 Troponin I < 0.02 ng/mL (0-1.5) 09/01/20 18:18 Total Protein 6.7 g/dL (6.4-8.2) 09/02/20 05:38 Albumin 1.9 g/dL (3.4-5.0) L 09/02/20 05:38 Globulin 4.8 g/dL (2.5-4.5) H 09/02/20 05:38 Albumin/Globulin Ratio 0.4 Ratio (1.1-2.1) L 09/02/20 05:38 SARS-CoV-2 (PCR) Negative (NEGATIVE) 09/01/20 18:45 Influenza Type A (PCR) Negative (NEGATIVE) 09/01/20 18:45 Influenza Type B (PCR) Negative (NEGATIVE) 09/01/20 18:45 Mycoplasma pneumon IgG Negative (NEGATIVE) 09/03/20 08:54 RSV (PCR) Negative (NEGATIVE) 09/01/20 18:45 SARS CoV-2 RNA Rapid GISELLA Negative (NEGATIVE) 09/03/20 10:22 Plan (1) Cavitary pneumonia: Status: Acute (2) Pulmonary emboli: Status: Acute Qualifiers: Pulmonary embolism type: multiple subsegmental (without acute cor pulmonale) Qualified Code(s): I26.94 - Multiple subsegmental pulmonary emboli without acute cor pulmonale (3) Pneumonia: Status: Acute Qualifiers: Laterality: unspecified laterality Lung location: unspecified part of lung Pneumonia type: due to unspecified organism Qualified Code(s): J18.9 - Pneumonia, unspecified organism (4) Sepsis: Status: Acute Qualifiers: Sepsis acute organ dysfunction status: without acute organ dysfunction Sepsis type: sepsis due to unspecified organism Qualified Code(s): A41.9 - Sepsis, unspecified organism (5) Generalized weakness: Status: Acute (6) Dehydration: Status: Acute (7) Anemia, normocytic normochromic: Status: Acute (8) Uncontrolled type 2 diabetes mellitus: Status: Acute Qualifiers: Glycemic state: with hyperglycemia Qualified Code(s): E11.65 - Type 2 diabetes mellitus with hyperglycemia (9) Type 2 diabetes mellitus: Status: Acute Qualifiers: Diabetes mellitus complication status: with other specified complication Diabetes mellitus terminal worker insulin use: without [facility] use Qualified Code(s): E11.69 - Type 2 diabetes mellitus with other specified complication (10) VARSHA (acute kidney injury): Status: Acute (11) Hyperglycemia: Status: Acute (12) Requires oxygen therapy: Status: Acute (13) Hypokalemia: Status: Acute (14) Moderate pulmonary hypertension: Status: Acute (15) Aortic stenosis: Status: Acute Qualifiers: Cardiac valve disease etiology: nonrheumatic Qualified Code(s): I35.0 - Nonrheumatic aortic (valve) stenosis
[2020-09-05] MEDS: FERROUS GLUCONATE PO SCH (16:25)
[2020-09-05 19:19] LABS: BILIRUBIN,URINE NEGATIVE (NEGATIVE); BLOOD/HEMOGLOBIN,URINE 1+ (NEGATIVE); GLUCOSE, URINE 4+ (NEGATIVE); KETONES,URINE NEGATIVE (NEGATIVE); LEUKOCYTE ESTERASE ,URINE NEGATIVE (NEGATIVE); NITRITES,URINE NEGATIVE (NEGATIVE); PROTEIN,URINE 1+ (NEGATIVE); UROBILINOGEN,URINE NORMAL (NORMAL)
[2020-09-05 19:29] LABS: APPEARANCE,URINE CLEAR (CLEAR); BACTERIA,URINE NEGATIVE /HPF (NEGATIVE); COLOR,URINE STRAW (YELLOW); SQUAMOUS EPITHELIAL CELL,UR RARE /HPF (NEGATIVE)
[2020-09-05 19:30] LABS: OTHER CASTS, URINE RARE /LPF (NEGATIVE); YEAST,URINE RARE /HPF (NEGATIVE)
[2020-09-05] MEDS: FLOMAX PO SCH (20:46)
[2020-09-05] MEDS: ZOCOR TAB 40 MG PO SCH (20:46)
[2020-09-05] MEDS: LANTUS SC SCH (20:48)
[2020-09-05] MEDS: SNACK - Diabetic Appropriate PO SCH (21:20)
[2020-09-06] MEDS: NS 1000 ML 1,000 ML IV SCH ×3 (01:43→18:24)
[2020-09-06] MEDS: XOPENEX 1.25 MG/3 ML NEBULE NEB SCH ×3 (05:10→20:05)
[2020-09-06] MEDS: ZOSYN VIAL 3.375 GRAMS 3.375 G in NS 100 ML IV + SPIKE MINIBAG* 100 ML IV SCH ×3 (05:52→21:46)
[2020-09-06] MEDS: HumuLIN R SC PRN ×4 (05:53→23:29)
[2020-09-06] MEDS: FERROUS GLUCONATE PO SCH ×2 (06:00→16:50)
[2020-09-06 06:32] LABS: BASOPHILS % (AUTO) 0.5 % (0.2-1.0); EOSINOPHILS # (AUTO) 0.1 x10^3/uL (0.0-0.2); EOSINOPHILS % (AUTO) 1.9 % (0.9-2.9); HEMOGLOBIN 10.7 g/dL (13.5-18.0); LYMPHOCYTES # (AUTO) 1.6 X10^3/uL (1.3-2.9); LYMPHOCYTES % (AUTO) 35.3 % (21.0-51.0); MEAN CORPUSCULAR HEMOGLOBIN 30.5 pg (27.0-34.0); MEAN CORPUSCULAR HGB CONC 33.3 g/dL (33.0-35.0); MEAN CORPUSCULAR VOLUME 91.6 fL (80.0-100.0); MEAN PLATELET VOLUME 7.4 fL (7.4-11.0); MONOCYTES # (AUTO) 0.1 x10^3/uL (0.3-0.8); MONOCYTES % (AUTO) 1.1 % (0.0-13.0); NEUTROPHILS # (AUTO) 2.7 x10^3/uL (2.2-4.8); NEUTROPHILS % (AUTO) 61.2 % (42.0-75.0); PLATELET COUNT 220 X10^3/uL (150.0-450.0); RED CELL DISTRIBUTION WIDTH 14.7 % (11.6-16.5); WHITE BLOOD COUNT 4.4 X10^3/uL (3.6-10.0)
[2020-09-06 06:38] LABS: ALANINE AMINOTRANSFERASE 22 Units/L (12-78); ALBUMIN 1.7 g/dL (3.4-5.0); ALKALINE PHOSPHATASE 81 Units/L (46-116); ASPARTATE AMINO TRANSFERASE 23 Units/L (15-37); BLOOD UREA NITROGEN 12 mg/dL (7-18); CALCIUM 8.9 mg/dL (8.5-10.1); CARBON DIOXIDE 29.2 mmol/L (21-32); CHLORIDE 100 mmol/L (98-107); COR CA(FOR HYPOALB) 10.7 mg/dL (8.5-10.1); COR NA(FOR HYPERGLY) 140 mmol/L (136-145); SODIUM 136 mmol/L (136-145); TOTAL PROTEIN 6.2 g/dL (6.4-8.2); eGFR NON BLACK RACES > 60 (>60)
[2020-09-06] MEDS: K-DUR TAB 20 MEQ PO SCH ×2 (08:47→21:45)
[2020-09-06] MEDS: ELIQUIS PO SCH ×2 (08:47→21:44)
[2020-09-06] MEDS: DIFLUCAN PO SCH (08:47)
[2020-09-06] MEDS: PROTONIX TAB 40 MG PO SCH (08:47)
[2020-09-06] MEDS: VSL#3 PO SCH (08:48)
[2020-09-06] MEDS: ZITHROMAX TAB 250 MG PO SCH (08:48)
[2020-09-06] MEDS: ZYVOX 600MG IV 600 MG/300 ML BAG IV SCH ×2 (08:48→21:45)
[2020-09-06] MEDS: ROBITUSSIN DM PO SCH ×4 (08:48→21:45)
[2020-09-06] MEDS: PULMICORT NEB TX 0.5 MG NEB SCH ×2 (09:20→20:05)
--- NOTE | 2020-09-06 10:25 | PCM.PROG ---
Progress Note Progress Note for Day of Date of Exam: 09/06/20 Subjective Subjective: Patient seen at bedside, no overnight events noted. Patient is feeling a lot better today. He is currently on 3L NC. He did have a fever of 101.5 last night, afebrile this morning. He is still having productive cough. His appetite is getting better. He did work with PT yesterday and ambulated to the bathroom and in the room. Denies N/V/D. CTA :small PE along with bilateral pneumonia, RLL cyst/cavitary pneumonia. It also showed enlarged lymph nodes and hilar adenopathy 2/2 to infection, malignancy or metastatic disease. Patient's prev CT done in [facility] also had showed similar findings and patient has been seeing oncology outpatient. Labs: WBC 4.4 Hgb 10.7 BUN/Cr:12/0.9 Glucose 243 Repeat COVID (-) Sputum: normal zuhair, yeast Blood Cx x 2 negative Echo: EF 71%, aortic valve sclerosis, mild-mod pulmonary HTN, no vegetation noted Plan: Continue IS, bronchodilators. Continue IV antibiotics. Will complete course of Azithromycin today. Continue Eliquis for PE. Monitor H/H and signs of bleeding. Continue lantus and SSI. Resume metformin. Continue gentle hydration with 50cc/hr. PT/OT as tolerated. Past Medical Family Social History Past Med/Fam/Surg Hx: No changes since H&P Allergies: Allergies vancomycin Allergy (Verified 06/25/20 10:08) Review of Systems ROS: No change since H&P Vital Signs and I&O's Vital Signs: Temperature 97.9 F Pulse Rate [Apical] 96 Pulse Rate 95 Respiratory Rate 28 Blood Pressure [Right Arm] 128/60 Blood Pressure 100/52 O2 Sat by Pulse Oximetry 96 Intake and Output: Intake & Output 09/03/20 09/04/20 09/05/20 09/06/20 23:59 23:59 23:59 23:59 Intake Total 3765 / 3765 2811 / 2811 2976 / 2976 615 / 615 Output Total 800 / 800 1100 / 1100 1450 / 1450 450 / 450 Balance 2965 / 2965 1711 / 1711 1526 / 1526 165 / 165 Physical Exam Oriented: Normal Eyes: Normal Ear: Normal Nose: Normal Throat: Normal Respiratory: Generalized, Wheezes and Rhonchi Cardiovascular: Tachycardia, Systolic and Murmur Auscultation: Bowel Sounds: Normal Tenderness: Normal Skin: Decreased Turgur Musculoskeletal: Normal Psychiatric: Normal Mood Description: Calm Affect: Normal Speech Pattern: Clear and Appropriate Laboratory and Diagnostics Result Diagrams: 09/06/20 05:32 09/06/20 05:32 Labs: 09/02/20 09:13 Blood Blood Culture - Preliminary 09/02/20 09:03 Blood Blood Culture - Preliminary 09/02/20 09:15 Sputum - Expectorated Sputum Sputum Culture - Final 09/02/20 09:15 Sputum - Expectorated Sputum - Final Laboratory WBC 4.4 X10^3/uL (3.6-10.0) 09/06/20 05:32 RBC 3.50 X10^6/uL (4.7-6.0) L 09/06/20 05:32 Hgb 10.7 g/dL (13.5-18.0) L 09/06/20 05:32 Hct 32.0 % (42.0-54.0) L 09/06/20 05:32 MCV 91.6 fL (80.0-100.0) 09/06/20 05:32 MCH 30.5 pg (27.0-34.0) 09/06/20 05:32 MCHC 33.3 g/dL (33.0-35.0) 09/06/20 05:32 RDW 14.7 % (11.6-16.5) 09/06/20 05:32 Plt Count 220 X10^3/uL (150.0-450.0) 09/06/20 05:32 MPV 7.4 fL (7.4-11.0) 09/06/20 05:32 Neut % (Auto) 61.2 % (42.0-75.0) 09/06/20 05:32 Lymph % (Auto) 35.3 % (21.0-51.0) 09/06/20 05:32 [place] % (Auto) 1.1 % (0.0-13.0) 09/06/20 05:32 Eos % (Auto) 1.9 % (0.9-2.9) 09/06/20 05:32 Baso % (Auto) 0.5 % (0.2-1.0) 09/06/20 05:32 Neut # (Auto) 2.7 x10^3/uL (2.2-4.8) 09/06/20 05:32 Lymph # (Auto) 1.6 X10^3/uL (1.3-2.9) 09/06/20 05:32 [place] # (Auto) 0.1 x10^3/uL (0.3-0.8) L 09/06/20 05:32 Eos # (Auto) 0.1 x10^3/uL (0.0-0.2) 09/06/20 05:32 Baso # (Auto) 0.0 X10^3/uL (0.0-0.1) 09/06/20 05:32 Absolute Nucleated RBC 0.0 /100WBC 09/06/20 05:32 Sample Site Rra 09/03/20 04:44 ABG pH 7.430 (7.35-7.45) 09/03/20 04:44 ABG pCO2 38.0 mmHg (35.0-45.0) 09/03/20 04:44 ABG pO2 66.0 mmHg (80.0-100.0) L 09/03/20 04:44 ABG HCO3 25.2 mmol/L (22-26) 09/03/20 04:44 ABG O2 Saturation 93.0 % (90-100) 09/03/20 04:44 ABG Base Excess 1.0 mmol/L (-2.0-2.0) 09/03/20 04:44 Mac Test Pos 09/03/20 04:44 A-a Gradient 172.0 mmHg 09/03/20 04:44 FiO2 40.0 09/03/20 04:44 Blood Gas Comments Ernestina well mt 09/03/20 04:44 Sodium 136 mmol/L (136-145) 09/06/20 05:32 Corrected Sodium 140 mmol/L (136-145) 09/06/20 05:32 Potassium 4.1 mmol/L (3.5-5.1) 09/06/20 05:32 Chloride 100 mmol/L (98-107) 09/06/20 05:32 Carbon Dioxide 29.2 mmol/L (21-32) 09/06/20 05:32 BUN 12 mg/dL (7-18) 09/06/20 05:32 Creatinine 0.90 mg/dL (0.70-1.30) 09/06/20 05:32 Est GFR (MDRD) Af Amer > 60 (>60) 09/06/20 05:32 Est GFR (MDRD) Non-Af > 60 (>60) 09/06/20 05:32 Glucose 271 mg/dL (65-99) H 09/06/20 05:32 POC Glucose (mg/dL) 243 mg/dL (65-99) H 09/06/20 05:43 Lactic Acid 1.3 mmol/L (0.4-2.0) 09/05/20 09:08 Calcium 8.9 mg/dL (8.5-10.1) 09/06/20 05:32 Corrected Calcium 10.7 mg/dL (8.5-10.1) H 09/06/20 05:32 Magnesium 2.2 mg/dL (1.7-2.9) 09/05/20 05:40 Total Bilirubin 0.20 mg/dL (0.2-1.0) 09/06/20 05:32 AST 23 Units/L (15-37) 09/06/20 05:32 ALT 22 Units/L (12-78) 09/06/20 05:32 Alkaline Phosphatase 81 Units/L (46-116) 09/06/20 05:32 Troponin I < 0.02 ng/mL (0-1.5) 09/01/20 18:18 Total Protein 6.2 g/dL (6.4-8.2) L 09/06/20 05:32 Albumin 1.7 g/dL (3.4-5.0) L 09/06/20 05:32 Globulin 4.5 g/dL (2.5-4.5) 09/06/20 05:32 Albumin/Globulin Ratio 0.4 Ratio (1.1-2.1) L 09/06/20 05:32 Specimen Type Clean catch urine 09/05/20 19:00 Urine Color Straw (YELLOW) 09/05/20 19:00 Urine Appearance Clear (CLEAR) 09/05/20 19:00 Urine pH 6.0 (5.0 - 8.0) 09/05/20 19:00 Ur Specific Chemult 1.010 (1.000-1.030) 09/05/20 19:00 Urine Protein 1+ (NEGATIVE) 09/05/20 19:00 Urine Glucose (UA) 4+ (NEGATIVE) 09/05/20 19:00 Urine Ketones Negative (NEGATIVE) 09/05/20 19:00 Urine Occult Blood 1+ (NEGATIVE) 09/05/20 19:00 Urine Nitrite Negative (NEGATIVE) 09/05/20 19:00 Urine Bilirubin Negative (NEGATIVE) 09/05/20 19:00 Urine Urobilinogen Normal (NORMAL) 09/05/20 19:00 Ur Leukocyte Esterase Negative (NEGATIVE) 09/05/20 19:00 Urine RBC 3-5 /HPF (0-3) A 09/05/20 19:00 Urine WBC 0-2 /HPF (0-5) 09/05/20 19:00 Ur Squamous Epith Cells Rare /HPF (NEGATIVE) 09/05/20 19:00 Urine Bacteria Negative /HPF (NEGATIVE) 09/05/20 19:00 Other Casts Rare /LPF (NEGATIVE) 09/05/20 19:00 Urine Yeast Rare /HPF (NEGATIVE) 09/05/20 19:00 Ur Culture Indicated? No/not indicated 09/05/20 19:00 SARS-CoV-2 (PCR) Negative (NEGATIVE) 09/01/20 18:45 Influenza Type A (PCR) Negative (NEGATIVE) 09/01/20 18:45 Influenza Type B (PCR) Negative (NEGATIVE) 09/01/20 18:45 Mycoplasma pneumon IgG Negative (NEGATIVE) 09/03/20 08:54 RSV (PCR) Negative (NEGATIVE) 09/01/20 18:45 SARS CoV-2 RNA Rapid GISELLA Negative (NEGATIVE) 09/03/20 10:22 Plan (1) Cavitary pneumonia: Status: Acute (2) Pulmonary emboli: Status: Acute Qualifiers: Pulmonary embolism type: multiple subsegmental (without acute cor pulmonale) Qualified Code(s): I26.94 - Multiple subsegmental pulmonary emboli without acute cor pulmonale (3) Pneumonia: Status: Acute Qualifiers: Laterality: unspecified laterality Lung location: unspecified part of lung Pneumonia type: due to unspecified organism Qualified Code(s): J18.9 - Pneumonia, unspecified organism (4) Sepsis: Status: Acute Qualifiers: Sepsis acute organ dysfunction status: without acute organ dysfunction Sepsis type: sepsis due to unspecified organism Qualified Code(s): A41.9 - S epsis, unspecified organism (5) Generalized weakness: Status: Acute (6) Dehydration: Status: Acute (7) Anemia, normocytic normochromic: Status: Acute (8) Uncontrolled type 2 diabetes mellitus: Status: Acute Qualifiers: Glycemic state: with hyperglycemia Qualified Code(s): E11.65 - Type 2 diabetes mellitus with hyperglycemia (9) Type 2 diabetes mellitus: Status: Acute Qualifiers: Diabetes mellitus complication status: with other specified complication 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
[2020-09-06] MEDS ORDERED: GLUCOPHAGE ONE ×2 (11:00→19:32)
[2020-09-06] MEDS: GLUCOPHAGE PO SCH ×2 (11:05→21:45)
[2020-09-06] MEDS: TYLENOL 325 MG TAB PO PRN (17:45)
[2020-09-06] MEDS: LANTUS SC SCH (21:00)
[2020-09-06] MEDS: SNACK - Diabetic Appropriate PO SCH (21:44)
[2020-09-06] MEDS: FLOMAX PO SCH (21:44)
[2020-09-06] MEDS: ZOCOR TAB 40 MG PO SCH (21:45)
[2020-09-07] MEDS: NS 1000 ML 1,000 ML IV SCH ×2 (04:15→11:22)
[2020-09-07] MEDS: XOPENEX 1.25 MG/3 ML NEBULE NEB SCH ×2 (05:31→13:50)
[2020-09-07] MEDS: ZOSYN VIAL 3.375 GRAMS 3.375 G in NS 100 ML IV + SPIKE MINIBAG* 100 ML IV SCH (05:49)
[2020-09-07] MEDS: FERROUS GLUCONATE PO SCH (06:21)
[2020-09-07] MEDS: HumuLIN R SC PRN ×2 (06:22→11:21)
[2020-09-07 07:15] LABS: BASOPHILS % (AUTO) 0.2 % (0.2-1.0); EOSINOPHILS # (AUTO) 0.1 x10^3/uL (0.0-0.2); EOSINOPHILS % (AUTO) 1.6 % (0.9-2.9); HEMATOCRIT 32.8 % (42.0-54.0); HEMOGLOBIN 10.7 g/dL (13.5-18.0); LYMPHOCYTES # (AUTO) 1.2 X10^3/uL (1.3-2.9); LYMPHOCYTES % (AUTO) 26.1 % (21.0-51.0); MEAN CORPUSCULAR HEMOGLOBIN 29.9 pg (27.0-34.0); MEAN CORPUSCULAR HGB CONC 32.6 g/dL (33.0-35.0); MEAN CORPUSCULAR VOLUME 91.6 fL (80.0-100.0); MEAN PLATELET VOLUME 7.3 fL (7.4-11.0); MONOCYTES # (AUTO) 0.1 x10^3/uL (0.3-0.8); MONOCYTES % (AUTO) 1.4 % (0.0-13.0); NEUTROPHILS # (AUTO) 3.3 x10^3/uL (2.2-4.8); NEUTROPHILS % (AUTO) 70.7 % (42.0-75.0); PLATELET COUNT 199 X10^3/uL (150.0-450.0); RED BLOOD COUNT 3.58 X10^6/uL (4.7-6.0); RED CELL DISTRIBUTION WIDTH 14.5 % (11.6-16.5); WHITE BLOOD COUNT 4.7 X10^3/uL (3.6-10.0)
[2020-09-07 07:20] LABS: BLOOD UREA NITROGEN 11 mg/dL (7-18); CALCIUM 9.3 mg/dL (8.5-10.1); CARBON DIOXIDE 27.9 mmol/L (21-32); CHLORIDE 99 mmol/L (98-107); COR NA(FOR HYPERGLY) 137 mmol/L (136-145); CREATININE 0.91 mg/dL (0.70-1.30); SODIUM 133 mmol/L (136-145); eGFR NON BLACK RACES > 60 (>60)
[2020-09-07] MEDS: PULMICORT NEB TX 0.5 MG NEB SCH (08:45)
[2020-09-07] MEDS: DIFLUCAN PO SCH (09:01)
[2020-09-07] MEDS: K-DUR TAB 20 MEQ PO SCH (09:01)
[2020-09-07] MEDS: ELIQUIS PO SCH (09:01)
[2020-09-07] MEDS: VSL#3 PO SCH (09:02)
[2020-09-07] MEDS: ZYVOX 600MG IV 600 MG/300 ML BAG IV SCH (09:02)
[2020-09-07] MEDS: ZITHROMAX TAB 250 MG PO SCH (09:02)
[2020-09-07] MEDS: PROTONIX TAB 40 MG PO SCH (09:02)
[2020-09-07] MEDS: ROBITUSSIN DM PO SCH (09:02)
[2020-09-07] MEDS: GLUCOPHAGE PO SCH (09:03)
[2020-09-07] MEDS ORDERED: GLUCOPHAGE ONE (09:04)
--- NOTE | 2020-09-07 11:12 | RAD ---
HISTORYpneumoniaSTUDYCHEST, 1 VIEWCOMPARISONFebruary 2020FINDINGSThe trachea is midline. The cardiac silhouette is unremarkable . The lungs demonstrate stable bilateral airspace disease unchanged compared to prior. The bony thorax is unremarkable.IMPRESSIONStable multifocal pneumonia.Electronically signed by: MARYURI PEREZ (Sep 07, 2020 11:11:24)
[2020-09-07 12:39] VITALS: BP 111/56
--- NOTE | 2020-09-08 10:44 | W.DIS.FURT ---
Summary of Discharge Discharge Summary of Date Date of Exam: 09/07/20 Admission Date Date of Admission: 09/01/20 Admission Diagnosis Patient Problems (Updated 09/10/20 @ 16:07 by Joleen Neves) Uncontrolled type 2 diabetes mellitus (Acute) E11.65 Hospital Course: Mr Guerrero is a 79y/o male with a PMH of Type 2 DM, anemia, Hx of GI bleed , GERD, HTN presented with worsening productive cough, SOB and chills. Patient was treated for pneumonia at [facility] end of Jul and admitted for 2-3 days. He was discharged on oral antibiotics and home oxygen 3L. Patient was doing ok until last few days, he has been gradually getting weakness and having increased cough and SOB. Yesterday, patient had chills and got really weak so was brought to the ED. On admission, CXR was concerning for atypical pneumonia. He was started on IV Zosyn and azithromycin . COVID and flu swab were negative. He was also started on gentle hydration. Blood and sputum cultures were collected. Patient was started on bronchodilators including duonebs, pulmicort and IS. He continued to require 4-5L O2 via NC and had several spikes of fever. Patient's d-dimer was elevated so CT chest was done which showed small PE in the RLL along with dense bilateral infiltrates concerning for pneumonia. There is also a 1.4 cm air filled space in the RLL possible a cyst or cavitary pneumonia. He also had bulky hilar and mediastinal adenopathy. Ddx include lymphoma, metastatic disease vs reactive LAD. Patient's stated that patient had similar adenopathy in [facility] and heme/onc was consulted. Patient has been seen by heme/onc outpatient and plan was to repeat CT-chest to see if it had improved/resolved. Patient was started on eliquis for PE. Sputum cx showed yeast so diflucan was added. Patient continued to have intermittent fevers, linezolid was added for MRSA coverage due to patient's recent inpatient admission to cover for HAP. Patient's labs were monitored daily and electrolytes repalced as needed. Patient's fevers resolved and he was back to using 3L NC. Patient had no active bleeding and hgb remained stable. PT/OT was consulted and recommended home. ECHO was also done and showed EF 71% Mod MV sclerosis, Severe AV thickening with sclerosis. Moderate Pulmonary HTN. Patient had repeat COVID test as well which also came back negative. Patient's glucose was elevated during this admission, he was started on lantus qPM along with SSI. Patient was stable for discharge on oral abx. Patient was also discharged on lantus qPM and advised to discuss this with his PCP. He will f/u with PCP as scheduled along with pulmonary and heme/onc. Vital Signs: Vital Signs (72 hours) 09/05/20 12:00 09/05/20 16:00 09/05/20 20:00 Temperature 97.7 F 97.8 F 98.5 F Pulse Rate Pulse Rate [Apical] 94 H 98 H 105 H Respiratory Rate 26 H 24 22 Blood Pressure [Right Arm] 104/57 119/62 135/61 O2 Sat by Pulse Oximetry 94 L 95 95 09/05/20 22:20 09/05/20 22:25 09/05/20 23:20 Temperature 101.5 F H Pulse Rate Pulse Rate [Apical] Respiratory Rate 22 24 Blood Pressure [Right Arm] O2 Sat by Pulse Oximetry 09/06/20 00:00 09/06/20 04:00 09/06/20 08:00 Temperature 99.1 F 97.6 F 97.9 F Pulse Rate Pulse Rate [Apical] 115 H 94 H 96 H Respiratory Rate 24 22 28 H Blood Pressure [Right Arm] 132/67 117/59 128/60 O2 Sat by Pulse Oximetry 94 L 93 L 96 09/06/20 09:20 09/06/20 12:00 09/06/20 14:10 Temperature 98.7 F Pulse Rate 95 H 105 H Pulse Rate [Apical] 104 H Respiratory Rate 24 Blood Pressure [Right Arm] 153/84 O2 Sat by Pulse Oximetry 96 96 96 09/06/20 16:00 09/06/20 17:45 09/06/20 18:45 Temperature 100.0 F H Pulse Rate Pulse Rate [Apical] 105 H Respiratory Rate 20 19 17 Blood Pressure [Right Arm] 123/57 O2 Sat by Pulse Oximetry 96 09/06/20 20:00 09/06/20 20:05 09/07/20 00:00 Temperature 98.5 F 97.6 F Pulse Rate 92 H Pulse Rate [Apical] 93 H 100 H Respiratory Rate 22 20 Blood Pressure [Right Arm] 115/59 109/55 O2 Sat by Pulse Oximetry 95 95 94 L 09/07/20 04:00 09/07/20 08:00 09/07/20 08:45 Temperature 98.4 F 99 F Pulse Rate 108 H Pulse Rate [Apical] 98 H 107 H Respiratory Rate 20 24 Blood Pressure [Right Arm] 142/67 123/63 O2 Sat by Pulse Oximetry 97 96 91 L 09/07/20 12:00 Temperature 97.4 F L Pulse Rate Pulse Rate [Apical] 99 H Respiratory Rate 22 Blood Pressure [Right Arm] 111/56 O2 Sat by Pulse Oximetry 94 L Labs: Laboratory Last Values WBC 4.7 X10^3/uL (3.6-10.0) 09/07/20 06:12 RBC 3.58 X10^6/uL (4.7-6.0) L 09/07/20 06:12 Hgb 10.7 g/dL (13.5-18.0) L 09/07/20 06:12 Hct 32.8 % (42.0-54.0) L 09/07/20 06:12 MCV 91.6 fL (80.0-100.0) 09/07/20 06:12 MCH 29.9 pg (27.0-34.0) 09/07/20 06:12 MCHC 32.6 g/dL (33.0-35.0) L 09/07/20 06:12 RDW 14.5 % (11.6-16.5) 09/07/20 06:12 Plt Count 199 X10^3/uL (150.0-450.0) 09/07/20 06:12 MPV 7.3 fL (7.4-11.0) L 09/07/20 06:12 Neut % (Auto) 70.7 % (42.0-75.0) 09/07/20 06:12 Lymph % (Auto) 26.1 % (21.0-51.0) 09/07/20 06:12 [place] % (Auto) 1.4 % (0.0-13.0) 09/07/20 06:12 Eos % (Auto) 1.6 % (0.9-2.9) 09/07/20 06:12 Baso % (Auto) 0.2 % (0.2-1.0) 02/21/21 06:12 Neut # (Auto) 3.3 x10^3/uL (2.2-4.8) 09/07/20 06:12 Lymph # (Auto) 1.2 X10^3/uL (1.3-2.9) L 09/07/20 06:12 [place] # (Auto) 0.1 x10^3/uL (0.3-0.8) L 09/07/20 06:12 Eos # (Auto) 0.1 x10^3/uL (0.0-0.2) 09/07/20 06:12 Baso # (Auto) 0.0 X10^3/uL (0.0-0.1) 09/07/20 06:12 Absolute Nucleated RBC 0.0 /100WBC 09/07/20 06:12 Sample Site Rra 09/03/20 04:44 ABG pH 7.430 (7.35-7.45) 09/03/20 04:44 ABG pCO2 38.0 mmHg (35.0-45.0) 09/03/20 04:44 ABG pO2 66.0 mmHg (80.0-100.0) L 09/03/20 04:44 ABG HCO3 25.2 mmol/L (22-26) 09/03/20 04:44 ABG O2 Saturation 93.0 % (90-100) 09/03/20 04:44 ABG Base Excess 1.0 mmol/L (-2.0-2.0) 09/03/20 04:44 Mac Test Pos 09/03/20 04:44 A-a Gradient 172.0 mmHg 09/03/20 04:44 FiO2 40.0 09/03/20 04:44 Blood Gas Comments Ernestina well mt 09/03/20 04:44 Sodium 133 mmol/L (136-145) L 09/07/20 06:12 Corrected Sodium 137 mmol/L (136-145) 09/07/20 06:12 Potassium 4.3 mmol/L (3.5-5.1) 09/07/20 06:12 Chloride 99 mmol/L (98-107) 09/07/20 06:12 Carbon Dioxide 27.9 mmol/L (21-32) 09/07/20 06:12 BUN 11 mg/dL (7-18) 09/07/20 06:12 Creatinine 0.91 mg/dL (0.70-1.30) 09/07/20 06:12 Est GFR (MDRD) Af Amer > 60 (>60) 09/07/20 06:12 Est GFR (MDRD) Non-Af > 60 (>60) 09/07/20 06:12 Glucose 259 mg/dL (65-99) H 09/07/20 06:12 POC Glucose (mg/dL) 326 mg/dL (65-99) H 09/07/20 11:10 Lactic Acid 1.3 mmol/L (0.4-2.0) 09/05/20 09:08 Calcium 9.3 mg/dL (8.5-10.1) 09/07/20 06:12 Corrected Calcium 10.7 mg/dL (8.5-10.1) H 09/06/20 05:32 Magnesium 2.2 mg/dL (1.7-2.9) 09/05/20 05:40 Total Bilirubin 0.20 mg/dL (0.2-1.0) 09/06/20 05:32 AST 23 Units/L (15-37) 09/06/20 05:32 ALT 22 Units/L (12-78) 09/06/20 05:32 Alkaline Phosphatase 81 Units/L (46-116) 09/06/20 05:32 Troponin I < 0.02 ng/mL (0-1.5) 09/01/20 18:18 Total Protein 6.2 g/dL (6.4-8.2) L 09/06/20 05:32 Albumin 1.7 g/dL (3.4-5.0) L 09/06/20 05:32 Globulin 4.5 g/dL (2.5-4.5) 09/06/20 05:32 Albumin/Globulin Ratio 0.4 Ratio (1.1-2.1) L 09/06/20 05:32 Specimen Type Clean catch urine 09/05/20 19:00 Urine Color Straw (YELLOW) 09/05/20 19:00 Urine Appearance Clear (CLEAR) 09/05/20 19:00 Urine pH 6.0 (5.0 - 8.0) 09/05/20 19:00 Ur Specific [place] 1.010 (1.000-1.030) 09/05/20 19:00 Urine Protein 1+ (NEGATIVE) 09/05/20 19:00 Urine Glucose (UA) 4+ (NEGATIVE) 09/05/20 19:00 Urine Ketones Negative (NEGATIVE) 09/05/20 19:00 Urine Occult Blood 1+ (NEGATIVE) 09/05/20 19:00 Urine Nitrite Negative (NEGATIVE) 09/05/20 19:00 Urine Bilirubin Negative (NEGATIVE) 09/05/20 19:00 Urine Urobilinogen Normal (NORMAL) 09/05/20 19:00 Ur Leukocyte Esterase Negative (NEGATIVE) 09/05/20 19:00 Urine RBC 3-5 /HPF (0-3) A 09/05/20 19:00 Urine WBC 0-2 /HPF (0-5) 09/05/20 19:00 Ur Squamous Epith Cells Rare /HPF (NEGATIVE) 09/05/20 19:00 Urine Bacteria Negative /HPF (NEGATIVE) 09/05/20 19:00 Other Casts Rare /LPF (NEGATIVE) 09/05/20 19:00 Urine Yeast Rare /HPF (NEGATIVE) 09/05/20 19:00 Ur Culture Indicated? No/not indicated 09/05/20 19:00 Stl C. diff Tox B Gene Negative (NEGATIVE) 09/07/20 10:08 Stl C. diff [id number]-[id number] Negative (NEGATIVE) 09/07/20 10:08 SARS-CoV-2 (PCR) Negative (NEGATIVE) 09/01/20 18:45 Influenza Type A (PCR) Negative (NEGATIVE) 09/01/20 18:45 Influenza Type B (PCR) Negative (NEGATIVE) 09/01/20 18:45 Mycoplasma pneumon IgG Negative (NEGATIVE) 09/03/20 08:54 RSV (PCR) Negative (NEGATIVE) 09/01/20 18:45 SARS CoV-2 RNA Rapid GISELLA Negative (NEGATIVE) 09/03/20 10:22 Reason For Visit: PNEUMONIA,HYPERGLYCEMIA Discharge Date Discharge Date: 09/07/20 Discharge Diagnosis All Active Problems (Updated 09/10/20 @ 16:07 by Joleen Neves) Aortic stenosis (Chronic) Moderate pulmonary hypertension (Chronic) Sepsis (Acute) Hypokalemia (Acute) Cavitary pneumonia (Acute) Pulmonary emboli (Acute) Requires oxygen therapy (Chronic) Hyperglycemia (Acute) VARSHA (acute kidney injury) (Acute) Dehydration (Acute) Generalized weakness (Acute) Pneumonia (Acute) Anemia, normocytic normochromic (Acute) Uncontrolled type 2 diabetes mellitus (Acute) GI bleed (Acute) 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 Pt is to keep follow up appointment as instructed and take medications as ordered. Discharge Medications Discharge Medications: vancomycin Allergy (Verified 06/25/20 10:08) CONTINUE taking the following medications pantoprazole 40 mg PO DAILY 09/01/20 [History] New Prescriptions Lactobac #2-Bifido #1-S. therm [VSL#3] 1 cap PO DAILY 15 Days #15 cap 09/07/20 [Rx] apixaban [Eliquis] 5 mg PO BID 30 Days #60 tab 09/07/20 [Rx] insulin glargine [Lantus Solostar U-100 Insulin] 20 unit SUBCUT QPM 30 Days #2 box 09/07/20 [Rx] levalbuterol HCl 1.25 mg NEB TIDRESP 15 Days #135 ml 09/07/20 [Rx] levofloxacin 750 mg PO DAILY 5 Days #5 tab 09/07/20 [Rx] Follow up and Referral Follow Up: 1 Week (PCP) Discharge Disposition Discharge Disposition: Home with home health Discharge Condition: Stable Discharge Plan Discharge Plan Hospital Course: Mr Guerrero is a 79y/o male with a PMH of Type 2 DM, anemia, Hx of GI bleed , GERD, HTN presented with worsening productive cough, SOB and chills. Patient was treated for pneumonia at [facility] end of Jul and admitted for 2-3 days. He was discharged on oral antibiotics and home oxygen 3L. Patient was doing ok until last few days, he has been gradually getting weakness and having increased cough and SOB. Yesterday, patient had chills and got really weak so was brought to the ED. On admission, CXR was concerning for atypical pneumonia. He was started on IV Zosyn and azithromycin . COVID and flu swab were negative. He was also started on gentle hydration. Blood and sputum cultures were collected. Patient was started on bronchodilators including duonebs, pulmicort and IS. He continued to require 4-5L O2 via NC and had several spikes of fever. Patient's d-dimer was elevated so CT chest was done which showed small PE in the RLL along with dense bilateral infiltrates concerning for pneumonia. There is also a 1.4 cm air filled space in the RLL possible a cyst or cavitary pneumonia. He also had bulky hilar and mediastinal adenopathy. Ddx include lymphoma, metastatic disease vs reactive LAD. Patient's stated that patient had similar adenopathy in [place] and heme/onc was consulted. Patient has been seen by heme/onc outpatient and plan was to repeat CT-chest to see if it had improved/resolved. Patient was started on eliquis for PE. Sputum cx showed yeast so diflucan was added. Patient continued to have intermittent fevers, linezolid was added for MRSA coverage due to patient's recent inpatient admission to cover for HAP. Patient's labs were monitored daily and electrolytes repalced as needed. Patient's fevers resolved and he was back to using 3L NC. Patient had no active bleeding and hgb remained stable. PT/OT was consulted and recommended home. ECHO was also done and showed EF 71% Mod MV sclerosis, Severe AV thickening with sclerosis. Moderate Pulmonary HTN. Patient had repeat COVID test as well which also came back negative. Patient's glucose was elevated during this admission, he was started on lantus qPM along with SSI. Patient was stable for discharge on oral abx. Patient was also discharged on lantus qPM and advised to discuss this with his PCP. He will f/u with PCP as scheduled along with pulmonary and heme/onc. Patient Disposition: HOME HEALTH SERVICE Condition: Stable Health Concerns: Post Hospitalization: new medications and changes needed to prevent readmission or further decline. Pt educated and given instructions on all concerns. Plan of Treatment: Continue with present treatment and follow up plan. Pt is to keep follow up appointment as instructed and take medications as ordered. Prescriptions: New levalbuterol HCl 1.25 mg/3 mL Solution For Nebulization 1.25 mg NEB TIDRESP 15 Days Qty: 135 RF: 0 VSL#3 112.5 billion cell Capsule 1 cap PO DAILY 15 Days Qty: 15 RF: 0 levofloxacin 750 mg tablet 750 mg PO DAILY 5 Days Qty: 5 RF: 0 Eliquis 5 mg Tablet 5 mg PO BID 30 Days Qty: 60 RF: 0 Lantus Solostar U-100 Insulin 100 unit/mL (3 mL) insulin pen 20 unit subcut QPM 30 Days Qty: 2 RF: 1 Continued metformin 500 mg tablet 500 mg PO BID RF: 0 simvastatin 40 mg tablet 40 mg PO HS RF: 0 tamsulosin 0.4 mg capsule 0.4 mg PO HS RF: 0 cinnamon bark [Cinnamon] 500 mg Capsule 500 mg PO BID RF: 0 Men's 50 Plus Multivitamin 400-20-370 mcg Tablet 1 tab PO QHS RF: 0 pantoprazole 40 mg tablet,delayed release (DR/EC) 40 mg PO DAILY RF: 0 Discontinued aspirin 325 mg Tablet 325 mg PO DAILY RF: 0 clopidogrel 75 mg tablet 75 mg PO DAILY RF: 0 albuterol sulfate 2.5 mg /3 mL (0.083 %) solution for nebulization 2.5 mg continuous nebulization QID RF: 0 Follow ups/Referrals Follow ups/Referrals: FELECIA LUCAS [Primary Care Provider] - 3 DAYS (hospital discharge follow up. New medication: Eliquis 5 mg BID for pulmonary emboli , Lantus 20 units at bedtime, Levaquin x 5 days ) Instructions Instructions: Incentive Spirometer, Home Oxygen Use, Adult, Pulmonary Embolism, Hypoxia, Type 2 Diabetes Mellitus, Self Care, Adult, [id number], Acute Kidney Injury, Adult, Community-Acquired Pneumonia, Adult, [id number] Activity Restrictions/Additional Instructions: Take Eliquis 5 mg twice a day for blood clot in the lungs Take Lantus insulin 20 units at bedtime daily, discuss this with primary care provider Take Levaquin antibiotic daily for 5 days Keep follow up with animal attendants and trainers and oncologist as scheduled Follow up with primary care provider in 3-5 days Stand Alone Forms: Excuse From Work or School, Precautions for COVID19, Patient Portal, Social Distancing
[2020-09-11] MEDS ORDERED: ELIQUIS PO SCH (09:00)
== END 2020-09-07 13:55 | disposition home or self-care (01) | DRG 193 ==
LOC: OBS 17:56 → ER 17:56 → OBS 23:39 → MED/SURG 09-03 13:30
PROVIDERS: ADMIT Internal Medicine; ATTEND Internal Medicine

== ENCOUNTER 2020-10-24 11:40 | Observation (INO) ==
[2020-10-24 11:53] VITALS: BMI 22.9
--- NOTE | 2020-10-24 13:14 | DR.GENAD ---
HPI Time Seen Time Seen by Provider: 10/24/20 13:03 PCP Primary Care Physician: JIM LUCAS HPI Comment HPI Comment: PATIENT WITH A HISTORY OF CVA, GI BLEEDING MAY 2020 COMPLAINS OF DYSARTHRIA FOR 2 DAYS. DENIES FACIAL OR EXTREMITY NUMBNESS, WEAKNESS OR UNSTEADY GAIT. HAS OCCASIONAL COUGH AND FEVER, DENIES DYSPNEA. STATES HIS DYSARTHRIA RESOLVED PRIOR TO ARRIVAL Complaint/Symptoms Chief Complaint Doctors Comments: DIFFICULTY SPEAKING X 2 DAYS Self Treatment fo Chief Complaint: PATIENT CAME TO ER, REPORTS PATIENT HAS FEVER ONSET TUESDAY, REPORTS "HE CAN'T FORM HIS WORDS". REPORTS IT IS OFF AND ON, BUT BETTER TODAY. PATIENT WAS SEEN BY PCP ON TUESDAY, NO FINDINGS PER . COVID-19 Coronavirus risk:travel/contact w/high risk person: No Has patient experienced Coronavirus symptoms: No Coronavirus symptoms experienced: Fever Nurses notes reviewed Nurses Notes Review: Yes Source History Provided: Patient Mode of Arrival Mode of Arrival: Ambulatory Timing Onset of Chief Complaint: 10/24/20 Duration Duration: Intermittent Severity Severity: Moderate Associated Signs and Symptoms Associated Signs and Symptoms: HAS FEVER, DENIES COUGH, DYSPNEA Other History Other History: HISTORY OF CVA, GI BLEEDING PMH PMH Past Medical History: Yes Past Medical History: CVA, Diabetes, Dyslipidemia, Hypertension and PUD Past Medical History Comment: GI BLEED Past Surgical History: Yes Surgical History: Other Past Surgical History Comment: EGD Family History History of Family Medical Conditions: Yes Family Medical History: Cancer Social History Alcohol Use: None Do you use any recreational Drugs:: No Lives With: Spouse Lives Where: Home Travel Risk Coronavirus risk:travel/contact w/high risk person: No Has patient experienced Coronavirus symptoms: No Infectious screening In the last 2 months have you had wt loss of >10#?: NO Have you had fever, night sweats or hemotysis?: No Have you traveled outside the country in the last 6 months?: No Isolation: Standard ROS Review of Systems Constitutional: See HPI Eyes: No Symptoms Reported ENTM: No Symptoms Reported Respiratoy: No Symptoms Reported Cardiovascular: No Symptoms Reported Gastrointestinal/Abdominal: No Symptoms Reported Genitourinary: No Symptoms Reported Neurological: See HPI Musculoskeletal: No Symptoms Reported Integumentary: No Symptoms Reported Hematologic/Lymphatic: No Symptoms Reported Endocrine: No Symptoms Reported Psychiatric: No Symptoms Reported All Other Systems: Reviewed and Negative PE Vital Signs Vitals: Temperature 97.6 F Pulse Rate 106 Respiratory Rate 37 Blood Pressure [Right Arm] 103/53 Blood Pressure 138/63 O2 Sat by Pulse Oximetry 99 General Limitations: No Limitations and Physical Limitation (ALERT AND APPROPRIATE, SPEECH CLEAR, NO DYSARTHRIA) General Appearance: Alert Head Head Exam: Normal Inspection and Atraumatic Eyes Eye exam: Normal Appearance and PERRL ENT ENT Exam: Normal Exam External Ear Exam: Normal External Inspection TM/Canal Exam: Bilateral: Normal Nose Exam: Normal Nose Exam Mouth Exam: Normal Inspection Throat Exam: Normal Inspection Neck Neck Exam: Normal Inspection and Full ROM Chest Chest Inspection: Normal Inspection and Symmetric Chest Wall Rise Respiratory Respiratory Exam: Normal Lung Sounds Bilat Respiratory Exam: Bilateral: Clear to Auscultation Cardiovascular Cardiovascular Exam: Regular Rate and Normal Rhythm Abdominal Exam Abdominal Exam: Normal Inspection, Normal Bowel Sounds and Soft Extremities Extremities Exam: Normal Inspection and Full ROM Back Back Exam: Normal Inspection Neurologic Neurological Exam: Alert, Oriented X3, CN II-XII Intact and Other (NIH STROKE NORMAL ) Psychiatric Psychiatric Exam: Normal Affect and Normal Mood Skin Skin Exam: Warm, Dry, Intact and Normal Color MDM Differential Diagnosis Differential Diagnosis: TRANSIENT ISCHEMIC ATTACK, COURSE Treatment Treatment: IV NORMAL SALINE 50ML/HR AND AFTER 2 SETS OF BLOOD CULTURES ROCEPHIN 1GM IVPB Consultation Call Returned: 14:54 Consultation Comments: DISCUSSED FINDINGS WITH DR EAGLE AT 1454 FOR OBSERVATION ROR Labs Reviewed Laboratory Results Reviewed?: Yes Result Diagrams: 10/24/20 13:26 10/24/20 13:26 Laboratory: WBC 3.9 X10^3/uL (3.6-10.0) 10/24/20 13:26 RBC 3.59 X10^6/uL (4.7-6.0) L 10/24/20 13:26 Hgb 11.0 g/dL (13.5-18.0) L 10/24/20 13:26 Hct 32.9 % (42.0-54.0) L 10/24/20 13:26 MCV 91.5 fL (80.0-100.0) 10/24/20 13:26 MCH 30.7 pg (27.0-34.0) 10/24/20 13:26 MCHC 33.5 g/dL (33.0-35.0) 10/24/20 13:26 RDW 17.7 % (11.6-16.5) H 10/24/20 13:26 Plt Count 203 X10^3/uL (150.0-450.0) 10/24/20 13:26 MPV 6.5 fL (7.4-11.0) L 10/24/20 13:26 Neut % (Auto) 47.0 % (42.0-75.0) 10/24/20 13:26 Lymph % (Auto) 49.5 % (21.0-51.0) 10/24/20 13:26 [place] % (Auto) 1.7 % (0.0-13.0) 10/24/20 13:26 Eos % (Auto) 1.3 % (0.9-2.9) 10/24/20 13:26 Baso % (Auto) 0.5 % (0.2-1.0) 10/24/20 13:26 Neut # (Auto) 1.8 x10^3/uL (2.2-4.8) L 10/24/20 13:26 Lymph # (Auto) 1.9 X10^3/uL (1.3-2.9) 10/24/20 13:26 [place] # (Auto) 0.1 x10^3/uL (0.3-0.8) L 10/24/20 13:26 Eos # (Auto) 0.1 x10^3/uL (0.0-0.2) 10/24/20 13:26 Baso # (Auto) 0.0 X10^3/uL (0.0-0.1) 10/24/20 13:26 Absolute Nucleated RBC 0.1 /100WBC 10/24/20 13:26 PT 14.7 SECONDS (11.8-14.3) 10/24/20 13:26 INR Target Range - 10/24/20 13:26 INR 1.21 (0.8-1.3) 10/24/20 13:26 Sodium 139 mmol/L (136-145) 10/24/20 13:26 Corrected Sodium 140 mmol/L (136-145) 10/24/20 13:26 Potassium 4.2 mmol/L (3.5-5.1) 10/24/20 13:26 Chloride 103 mmol/L (98-107) 10/24/20 13:26 Carbon Dioxide 29.4 mmol/L (21-32) 10/24/20 13:26 BUN 18 mg/dL (7-18) 10/24/20 13:26 Creatinine 0.98 mg/dL (0.70-1.30) 10/24/20 13:26 Est GFR (MDRD) Af Amer > 60 (>60) 10/24/20 13:26 Est GFR (MDRD) Non-Af > 60 (>60) 10/24/20 13:26 Glucose 154 mg/dL (65-99) H 10/24/20 13:26 Calcium 9.1 mg/dL (8.5-10.1) 10/24/20 13:26 Corrected Calcium 9.9 mg/dL (8.5-10.1) 10/24/20 13:26 Magnesium 2.3 mg/dL (1.7-2.9) 10/24/20 13:26 Total Bilirubin 0.20 mg/dL (0.2-1.0) 10/24/20 13:26 AST 11 Units/L (15-37) L 10/24/20 13:26 ALT 13 Units/L (12-78) 10/24/20 13:26 Alkaline Phosphatase 53 Units/L (46-116) 10/24/20 13:26 Troponin I < 0.02 ng/mL (0-1.5) 10/24/20 13:26 Total Protein 7.1 g/dL (6.4-8.2) 10/24/20 13:26 Albumin 3.0 g/dL (3.4-5.0) L 10/24/20 13:26 Globulin 4.1 g/dL (2.5-4.5) 10/24/20 13:26 Albumin/Globulin Ratio 0.7 Ratio (1.1-2.1) L 10/24/20 13:26 XRAY XRAY Interpreted by: Radiologist (HEAD CT SCAN-: NO ACUTE INTRACRANIAL PROCESS) X-ray Results: PORTABLE CHEST XRAY: CONSISTENT WITH SIMILAR BILATERAL AIRSPACE OPACITIES EKG Rate: 91 [place]: LAD Hypertrophy: LAE Opioid Opioid Risk Tool Age (Jose Eduardo box if 16-45): No History of Preadolescent Sexual Abuse: No Total: 0 Total Score Risk Category: Low Risk Copyright: Chevy QUINN predicting aberrant behaviors Diagnosis Discharge Problem: Transient ischemic attack
[2020-10-24 13:32] LABS: BASOPHILS % (AUTO) 0.5 % (0.2-1.0); EOSINOPHILS # (AUTO) 0.1 x10^3/uL (0.0-0.2); EOSINOPHILS % (AUTO) 1.3 % (0.9-2.9); HEMATOCRIT 32.9 % (42.0-54.0); LYMPHOCYTES # (AUTO) 1.9 X10^3/uL (1.3-2.9); LYMPHOCYTES % (AUTO) 49.5 % (21.0-51.0); MEAN CORPUSCULAR HEMOGLOBIN 30.7 pg (27.0-34.0); MEAN CORPUSCULAR HGB CONC 33.5 g/dL (33.0-35.0); MEAN CORPUSCULAR VOLUME 91.5 fL (80.0-100.0); MEAN PLATELET VOLUME 6.5 fL (7.4-11.0); MONOCYTES # (AUTO) 0.1 x10^3/uL (0.3-0.8); MONOCYTES % (AUTO) 1.7 % (0.0-13.0); NEUTROPHILS # (AUTO) 1.8 x10^3/uL (2.2-4.8); PLATELET COUNT 203 X10^3/uL (150.0-450.0); RED BLOOD COUNT 3.59 X10^6/uL (4.7-6.0); RED CELL DISTRIBUTION WIDTH 17.7 % (11.6-16.5); WHITE BLOOD COUNT 3.9 X10^3/uL (3.6-10.0)
[2020-10-24 13:43] LABS: ALANINE AMINOTRANSFERASE 13 Units/L (12-78); ALKALINE PHOSPHATASE 53 Units/L (46-116); ASPARTATE AMINO TRANSFERASE 11 Units/L (15-37); BLOOD UREA NITROGEN 18 mg/dL (7-18); CALCIUM 9.1 mg/dL (8.5-10.1); CARBON DIOXIDE 29.4 mmol/L (21-32); CHLORIDE 103 mmol/L (98-107); COR CA(FOR HYPOALB) 9.9 mg/dL (8.5-10.1); COR NA(FOR HYPERGLY) 140 mmol/L (136-145); CREATININE 0.98 mg/dL (0.70-1.30); MAGNESIUM 2.3 mg/dL (1.7-2.9); SODIUM 139 mmol/L (136-145); TOTAL PROTEIN 7.1 g/dL (6.4-8.2); eGFR NON BLACK RACES > 60 (>60)
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
--- NOTE | 2020-10-24 13:53 | CT ---
HISTORYSLURRED SPEECH X 2 DAYSSTUDYBRAIN W/O CONCOMPARISONNoneTECHNIQUEMultiple axial images of the head were performed from the skull base to the vertex using standard departmental protocol. Sagittal and coronal reformatted images were performed. Dose reduction techniques including Automated Exposure Control (AEC) and adjustment of mA and kV were utilized.FINDINGSNo evidence of acute territorial infarct. No acute intracranial hemorrhage. No evidence of intracranial mass or midline shift. No hydrocephalus. No abnormal intra or extra-axial fluid collections. Mild chronic small vessel ischemic changes and global volume loss. Mild intracranial vascular calcifications.The calvaria is intact. The bilateral mastoid air cells and visualized paranasal sinuses are well pneumatized. The bilateral orbits are unremarkable.IMPRESSIONNo acute intracranial findings.Electronically signed by: NEDRA DENNIS (Oct 24, 2020 13:51:41)
[2020-10-24] MEDS ORDERED: NS 1000 ML 1,000 ML IV SCH ×2 (14:00→18:00)
[2020-10-24] MEDS ORDERED: ROCEPHIN 1 GRAM IV PREMIX 1 G/50 ML IV.SOLN. IV ONE ×2 (14:11→14:17)
[2020-10-24] MEDS ORDERED: NS 1000 ML 1,000 ML ONE (14:16)
[2020-10-24 15:45] LABS: BILIRUBIN,URINE NEGATIVE (NEGATIVE); BLOOD/HEMOGLOBIN,URINE 1+ (NEGATIVE); GLUCOSE, URINE 2+ (NEGATIVE); KETONES,URINE NEGATIVE (NEGATIVE); LEUKOCYTE ESTERASE ,URINE NEGATIVE (NEGATIVE); NITRITES,URINE NEGATIVE (NEGATIVE); PROTEIN,URINE 2+ (NEGATIVE); UROBILINOGEN,URINE NORMAL (NORMAL)
[2020-10-24 15:54] LABS: APPEARANCE,URINE CLEAR (CLEAR); COLOR,URINE DARK YELLOW (YELLOW)
[2020-10-24 15:55] LABS: BACTERIA,URINE NEGATIVE /HPF (NEGATIVE); SQUAMOUS EPITHELIAL CELL,UR RARE /HPF (NEGATIVE)
[2020-10-24] MEDS ORDERED: GLUCOPHAGE ONE (20:01)
[2020-10-24] MEDS: ELIQUIS PO SCH (20:14)
[2020-10-24] MEDS: FERROUS GLUCONATE PO SCH (20:14)
[2020-10-24] MEDS: GLUCOPHAGE PO SCH (20:14)
[2020-10-24] MEDS ORDERED: LANTUS SC SCH (21:00)
[2020-10-24] MEDS ORDERED: ZOCOR TAB 40 MG PO SCH (21:00)
[2020-10-25 08:19] VITALS: BP 123/58
[2020-10-25] MEDS ORDERED: GLUCOPHAGE ONE (08:38)
[2020-10-25] MEDS: ELIQUIS PO SCH (08:45)
[2020-10-25] MEDS: GLUCOPHAGE PO SCH (08:45)
[2020-10-25] MEDS: FERROUS GLUCONATE PO SCH (08:45)
[2020-10-25] MEDS ORDERED: PROTONIX TAB 40 MG PO SCH (09:00)
--- NOTE | 2020-10-25 10:24 | DR.SSS ---
SHORT STAY SUMMARY Admission Date Date of Admission: 10/24/20 Discharge Date Discharge Date: 10/25/20 Admission Diagnoses Admission Diagnoses: TIA Discharge Diagnoses Discharge Diagnoses: TIA Chief Complaint Chief Complaint: Trouble word difficulty History of Present Illness History of Present Illness: Pt is a 79 year old male past medical history of CVA, HTN, DMT2, presenting with intermittent dysarthria for the past 2 days. He reports that episodes will come and go and only involve him having some difficulty forming words. He denies any facial or extremity weakness/numbness, vision changes, or unsteady gait. Denies fevers, chills, chest pain, shortness of breath, abdominal pain, constipation, diarrhea, edema. Past Medical History Past Medical History: CVA, Diabetes, Dyslipidemia, Hypertension and PUD Past Surgical History Surgical History: Other Allergies Allergies Allergy/AdvReac Type Severity Reaction Status Date / Time vancomycin Allergy Verified 09/21/20 10:28 Medications Home Medications: vancomycin Allergy (Verified 09/21/20 10:28) CONTINUE taking the following medications Eliquis 2.5 mg PO BID 10/24/20 [History] Janumet 1 tab PO BID 10/24/20 [History] albuterol sulfate 2.5 mg INHALATION TID PRN 10/24/20 [History] clopidogrel 75 mg PO DAILY 10/24/20 [History] pen needle, diabetic [BD Sandra 2nd Gen Pen Needle] 10/24/20 [History] testosterone 2 pump TOPICAL DAILY 10/24/20 [History] Family History Family Medical History: Cancer Social History Does patient currently use any type of tobacco product: No Have you used tobacco products in the last 12 months: No Type of Tobacco Use: None Alcohol Use: None Drug Use: None Review of Systems Constitutional: No Symptoms Reported Eyes: No Symptoms Reported ENT: No Symptoms Reported Respiratory: No Symptoms Reported Cardiovascular: No Symptoms Reported Gastrointestinal: No Symptoms Reported Genitourinary: No Symptoms Reported Musculoskeletal: No Symptoms Reported Skin: No Symptoms Reported Neurological: Change in Speech (Dysarthria) Physical Exam Vital Signs: Last Vital Signs Temp 98.8 F 10/25/20 08:00 Pulse 82 10/25/20 08:00 Resp 18 10/25/20 08:00 BP 123/58 10/25/20 08:00 Pulse Ox 96 10/25/20 08:00 Oriented: Normal Eyes: Normal Ear: Normal Nose: Normal Throat: Normal Respiratory: Clear Throughout Cardiovascular: Normal : Normal Auscultation: Bowel Sounds: Normal Palpation: Normal Tenderness: Normal Skin: Normal Musculoskeletal: Normal Psychiatric: Normal Mood Description: Calm Affect: Normal Speech Pattern: Clear Labs Labs: Laboratory Last Values WBC 3.9 X10^3/uL (3.6-10.0) 10/24/20 13:26 RBC 3.59 X10^6/uL (4.7-6.0) L 10/24/20 13:26 Hgb 11.0 g/dL (13.5-18.0) L 10/24/20 13:26 Hct 32.9 % (42.0-54.0) L 10/24/20 13:26 MCV 91.5 fL (80.0-100.0) 10/24/20 13:26 MCH 30.7 pg (27.0-34.0) 10/24/20 13:26 MCHC 33.5 g/dL (33.0-35.0) 10/24/20 13:26 RDW 17.7 % (11.6-16.5) H 10/24/20 13:26 Plt Count 203 X10^3/uL (150.0-450.0) 10/24/20 13:26 MPV 6.5 fL (7.4-11.0) L 10/24/20 13:26 Neut % (Auto) 47.0 % (42.0-75.0) 10/24/20 13:26 Lymph % (Auto) 49.5 % (21.0-51.0) 10/24/20 13:26 Sibley % (Auto) 1.7 % (0.0-13.0) 10/24/20 13:26 Eos % (Auto) 1.3 % (0.9-2.9) 10/24/20 13:26 Baso % (Auto) 0.5 % (0.2-1.0) 10/24/20 13:26 Neut # (Auto) 1.8 x10^3/uL (2.2-4.8) L 10/24/20 13:26 Lymph # (Auto) 1.9 X10^3/uL (1.3-2.9) 10/24/20 13:26 Sibley # (Auto) 0.1 x10^3/uL (0.3-0.8) L 10/24/20 13:26 Eos # (Auto) 0.1 x10^3/uL (0.0-0.2) 10/24/20 13:26 Baso # (Auto) 0.0 X10^3/uL (0.0-0.1) 10/24/20 13:26 Absolute Nucleated RBC 0.1 /100WBC 10/24/20 13:26 PT 14.7 SECONDS (11.8-14.3) 10/24/20 13:26 INR Target Range - 10/24/20 13:26 INR 1.21 (0.8-1.3) 10/24/20 13:26 Sodium 139 mmol/L (136-145) 10/24/20 13:26 Corrected Sodium 140 mmol/L (136-145) 10/24/20 13:26 Potassium 4.2 mmol/L (3.5-5.1) 10/24/20 13:26 Chloride 103 mmol/L (98-107) 10/24/20 13:26 Carbon Dioxide 29.4 mmol/L (21-32) 10/24/20 13:26 BUN 18 mg/dL (7-18) 10/24/20 13:26 Creatinine 0.98 mg/dL (0.70-1.30) 10/24/20 13:26 Est GFR (MDRD) Af Amer > 60 (>60) 10/24/20 13:26 Est GFR (MDRD) Non-Af > 60 (>60) 10/24/20 13:26 Glucose 154 mg/dL (65-99) H 10/24/20 13:26 POC Glucose (mg/dL) 89 mg/dL (65-99) 10/25/20 05:28 Calcium 9.1 mg/dL (8.5-10.1) 10/24/20 13:26 Corrected Calcium 9.9 mg/dL (8.5-10.1) 10/24/20 13:26 Magnesium 2.3 mg/dL (1.7-2.9) 10/24/20 13:26 Total Bilirubin 0.20 mg/dL (0.2-1.0) 10/24/20 13:26 AST 11 Units/L (15-37) L 10/24/20 13:26 ALT 13 Units/L (12-78) 10/24/20 13:26 Alkaline Phosphatase 53 Units/L (46-116) 10/24/20 13:26 Troponin I < 0.02 ng/mL (0-1.5) 10/24/20 13:26 Total Protein 7.1 g/dL (6.4-8.2) 10/24/20 13:26 Albumin 3.0 g/dL (3.4-5.0) L 10/24/20 13:26 Globulin 4.1 g/dL (2.5-4.5) 10/24/20 13:26 Albumin/Globulin Ratio 0.7 Ratio (1.1-2.1) L 10/24/20 13:26 Specimen Type Clean catch urine 10/24/20 15:40 Urine Color Dark yellow (YELLOW) 10/24/20 15:40 Urine Appearance Clear (CLEAR) 10/24/20 15:40 Urine pH 5.0 (5.0 - 8.0) 10/24/20 15:40 Ur Specific Stacy 1.025 (1.000-1.030) 10/24/20 15:40 Urine Protein 2+ (NEGATIVE) 10/24/20 15:40 Urine Glucose (UA) 2+ (NEGATIVE) 10/24/20 15:40 Urine Ketones Negative (NEGATIVE) 10/24/20 15:40 Urine Occult Blood 1+ (NEGATIVE) 10/24/20 15:40 Urine Nitrite Negative (NEGATIVE) 10/24/20 15:40 Urine Bilirubin Negative (NEGATIVE) 10/24/20 15:40 Urine Urobilinogen Normal (NORMAL) 10/24/20 15:40 Ur Leukocyte Esterase Negative (NEGATIVE) 10/24/20 15:40 Urine RBC 5-10 /HPF (0-3) A 10/24/20 15:40 Urine WBC 0-2 /HPF (0-5) 10/24/20 15:40 Ur Squamous Epith Cells Rare /HPF (NEGATIVE) 10/24/20 15:40 Urine Bacteria Negative /HPF (NEGATIVE) 10/24/20 15:40 Ur Culture Indicated? No/not indicated 10/24/20 15:40 SARS CoV-2 RNA Rapid GISELLA Negative (NEGATIVE) 10/24/20 15:10 Assessment/Plan (1) Transient ischemic attack: Hospital Course Hospital Course: Pt is a 79 year old male past medical history of CVA, HTN, DMT2, presenting with intermittent dysarthria for the past 2 days. He reports that episodes will come and go and only involve him having some difficulty forming words. He denies any facial or extremity weakness/numbness, vision changes, or unsteady gait. Denies fevers, chills, chest pain, shortness of breath, abdominal pain, constipation, diarrhea, edema. Labs/imaging: Wbc 3.9, Hgb 11, Plt 203, Na 139, K 4.2, Creatinine 0.98, Glucose 154, Troponin negative, UA negative, COVID negative, CT head no acute intracranial findings, CXR: Similar bilateral airspace opacities concerning for pneumonia. Recommend follow- up to resolution. Pt was monitored throughout hospital stay and did not have episodes of dysarthria on admission, throughout the night, or next morning. CXR findings are chronic and does not represent active infection due to known complex pulmonary history and can be correlated clinically with no leukocytosis, fevers, or any breathing difficulties. Antibiotics not indicated at this time. Pt was discharged home in stable condition, instructed to follow up with pcp in 3-5 days. Discharge Medications Discharge Medications: Home Medication List Eliquis 2.5 mg PO BID 10/24/20 [History] Janumet 1 tab PO BID 10/24/20 [History] albuterol sulfate 2.5 mg INHALATION TID PRN 10/24/20 [History] clopidogrel 75 mg PO DAILY 10/24/20 [History] pen needle, diabetic [BD Sandra 2nd Gen Pen Needle] 10/24/20 [History] testosterone 2 pump TOPICAL DAILY 10/24/20 [History] Prescriptions: Discharge Disposition Discharge Disposition: Home
== END 2020-10-25 11:25 | disposition home or self-care (01) ==
LOC: ER 11:44 → MED/SURG 11:44
PROVIDERS: ADMIT Family Medicine; ATTEND Family Medicine
DX: R47.89 Other speech disturbances; Z20.822 Contact with and (suspected) exposure to COVID-19; E78.2 Mixed hyperlipidemia; I10 Essential (primary) hypertension; E11.65 Type 2 diabetes mellitus with hyperglycemia; G45.8 Other transient cerebral ischemic attacks and related syndromes

== ENCOUNTER 2020-11-11 19:11 | Observation (INO) ==
--- NOTE | 2020-11-11 20:39 | DR.GENAD ---
HPI Time Seen Time Seen by Provider: 11/11/20 20:18 PCP Primary Care Physician: DR.DONALD LUCAS AND HORACE ARREOLA NP HPI Comment HPI Comment: 79 yo M w/ pmh tia, PE, type 2 dm, bph presents w/ approx 3 week hx of intermittent fever, t max 103 as well as confusion while febrile. Does describe some vague body aches. No fall or head strike. No CP or SOB. No urinary sx's, rash. No syncope. Complaint/Symptoms Chief Complaint:: PT C/O SHARP PAINS TO TOP OF HEAD AND BASE OF HEAD. PT'S STATES HE IS DISORIENTED, WEAK AND FEVER. PT VISITED HORACE ARREOLA NP TODAY AND WAS TOLD TO VISIT THE ER. Self Treatment fo Chief Complaint: TYLENOL AT 6PM Source History Provided: Patient and Significant Other Mode of Arrival Mode of Arrival: Ambulatory Timing Onset of Chief Complaint: 11/11/20 Severity Severity: Mild PMH PMH Past Medical History: Yes Past Medical History: CVA, Diabetes, Dyslipidemia and Headaches Past Medical History Comment: ??VALVE PROBLEM, PE Past Surgical History: Yes Surgical History: Other Past Surgical History Comment: SKIN CA REMOVAL FROM ARM Family History History of Family Medical Conditions: Yes Family Medical History: Diabetes Mellitus and Cancer Social History Does any household member use tobacco: No Alcohol Use: None Do you use any recreational Drugs:: No Lives With: Family Lives Where: Home Infectious screening In the last 2 months have you had wt loss of >10#?: NO Have you had fever, night sweats or hemotysis?: No Have you traveled outside the country in the last 6 months?: No Isolation: Standard ROS Review of Systems Constitutional: Malaise and Fatigue Eyes: No Symptoms Reported ENTM: No Symptoms Reported Respiratoy: No Symptoms Reported Cardiovascular: No Symptoms Reported Gastrointestinal/Abdominal: No Symptoms Reported Genitourinary: No Symptoms Reported Neurological: No Symptoms Reported Musculoskeletal: Muscle Pain Integumentary: No Symptoms Reported Hematologic/Lymphatic: No Symptoms Reported Endocrine: No Symptoms Reported Psychiatric: No Symptoms Reported All Other Systems: Reviewed and Negative PE Vital Signs Vitals: Temperature 37.2 C Pulse Rate 106 Respiratory Rate 20 Blood Pressure [Right Arm] 123/58 Blood Pressure 109/55 O2 Sat by Pulse Oximetry 97 General Limitations: No Limitations; negative Altered Mental Status General Appearance: Alert and In No Apparent Distress Head Head Exam: Normal Inspection and Atraumatic Eyes Eye exam: Normal Appearance, PERRL and EOMI ENT ENT Exam: Normal Exam and Mucous Membranes Moist External Ear Exam: Normal External Inspection TM/Canal Exam: Bilateral: Normal Nose Exam: Normal Nose Exam Mouth Exam: Normal Inspection Throat Exam: Normal Inspection Neck Neck Exam: Normal Inspection, Full ROM and Trachea Midline; negative Tenderness, Meningismus and Lymphadenopathy Chest Chest Inspection: Normal Inspection Respiratory Respiratory Exam: Normal Lung Sounds Bilat Respiratory Exam: Bilateral: Clear to Auscultation Cardiovascular Cardiovascular Exam: Regular Rate and Normal Rhythm Abdominal Exam Abdominal Exam: Normal Inspection, Normal Bowel Sounds and Soft Extremities Extremities Exam: Normal Inspection Back Back Exam: Normal Inspection Neurologic Neurological Exam: Alert and Oriented X3 Psychiatric Psychiatric Exam: Normal Affect and Normal Mood Skin Skin Exam: Warm, Dry, Intact and Normal Color MDM Differential Diagnosis Differential Diagnosis: meningisitis, uti, tia/ cva, ich COURSE Treatment Treatment: 79 yo m w/ pmh PE on eliquis presents w/ 3 week hx of intermittent fever and ams. No meningismus on exam. Afebrile in ED. WBC normal. CT head w/o any acute pathology. Neuro exam non focal. CXR w/ infiltrates. Started on abx, blood cx's drawn. D/w Dr Storm whom agrees to admit for further evaluation. Education/Counseling Education/Counseling: Patient and Family Educated On: Treatment, Diagnosis, Prognosis and Needs for Follow Up ROR Labs Reviewed Laboratory Results Reviewed?: Yes Result Diagrams: 11/11/20 21:11 11/11/20 21:11 Laboratory: WBC 4.7 X10^3/uL (3.6-10.0) 11/11/20 21:11 RBC 3.48 X10^6/uL (4.7-6.0) L 11/11/20 21:11 Hgb 10.7 g/dL (13.5-18.0) L 11/11/20 21:11 Hct 32.0 % (42.0-54.0) L 11/11/20 21:11 MCV 92.0 fL (80.0-100.0) 11/11/20 21:11 MCH 30.7 pg (27.0-34.0) 11/11/20 21:11 MCHC 33.4 g/dL (33.0-35.0) 11/11/20 21:11 RDW 16.7 % (11.6-16.5) H 11/11/20 21:11 Plt Count 210 X10^3/uL (150.0-450.0) 11/11/20 21:11 MPV 6.9 fL (7.4-11.0) L 11/11/20 21:11 Neut % (Auto) 50.7 % (42.0-75.0) 11/11/20 21:11 Lymph % (Auto) 45.7 % (21.0-51.0) 11/11/20 21:11 Fleming % (Auto) 2.5 % (0.0-13.0) 11/11/20 21:11 Eos % (Auto) 0.5 % (0.9-2.9) L 11/11/20 21:11 Baso % (Auto) 0.6 % (0.2-1.0) 11/11/20 21:11 Neut # (Auto) 2.4 x10^3/uL (2.2-4.8) 11/11/20 21:11 Lymph # (Auto) 2.1 X10^3/uL (1.3-2.9) 11/11/20 21:11 Fleming # (Auto) 0.1 x10^3/uL (0.3-0.8) L 11/11/20 21:11 Eos # (Auto) 0.0 x10^3/uL (0.0-0.2) 11/11/20 21:11 Baso # (Auto) 0.0 X10^3/uL (0.0-0.1) 11/11/20 21:11 Absolute Nucleated RBC 0.1 /100WBC 11/11/20 21:11 Sodium 134 mmol/L (136-145) L 11/11/20 21:11 Corrected Sodium 135 mmol/L (136-145) L 11/11/20 21:11 Potassium 4.3 mmol/L (3.5-5.1) 11/11/20 21:11 Chloride 97 mmol/L (98-107) L 11/11/20 21:11 Carbon Dioxide 27.6 mmol/L (21-32) 11/11/20 21:11 BUN 20 mg/dL (7-18) H 11/11/20 21:11 Creatinine 1.00 mg/dL (0.70-1.30) 11/11/20 21:11 Est GFR (MDRD) Af Amer > 60 (>60) 11/11/20 21:11 Est GFR (MDRD) Non-Af > 60 (>60) 11/11/20 21:11 Glucose 154 mg/dL (65-99) H 11/11/20 21:11 Calcium 9.2 mg/dL (8.5-10.1) 11/11/20 21:11 Troponin I < 0.02 ng/mL (0-1.5) 11/11/20 21:11 Specimen Type Clean catch urine 11/11/20 21:50 Urine Color Yellow (YELLOW) 11/11/20 21:50 Urine Appearance Clear (CLEAR) 11/11/20 21:50 Urine pH 5.0 (5.0 - 8.0) 11/11/20 21:50 Ur Specific Woodworth 1.025 (1.000-1.030) 11/11/20 21:50 Urine Protein 2+ (NEGATIVE) 11/11/20 21:50 Urine Glucose (UA) Negative (NEGATIVE) 11/11/20 21:50 Urine Ketones 1+ (NEGATIVE) 11/11/20 21:50 Urine Occult Blood 2+ (NEGATIVE) 11/11/20 21:50 Urine Nitrite Negative (NEGATIVE) 11/11/20 21:50 Urine Bilirubin Negative (NEGATIVE) 11/11/20 21:50 Urine Urobilinogen Normal (NORMAL) 11/11/20 21:50 Ur Leukocyte Esterase Negative (NEGATIVE) 11/11/20 21:50 Urine RBC 3-5 /HPF (0-3) A 11/11/20 21:50 Urine WBC None seen /HPF (0-5) 11/11/20 21:50 Ur Squamous Epith Cells Rare /HPF (NEGATIVE) 11/11/20 21:50 Urine Bacteria Negative /HPF (NEGATIVE) 11/11/20 21:50 Ur Culture Indicated? No/not indicated 11/11/20 21:50 XRAY XRAY Interpreted by: Radiologist X-ray Results: BRAIN W/O CON COMPARISON October 24, 2020 TECHNIQUE Axial non-contrast images of the head were obtained with coronal and sagittal reformats provided. Radiation dose: 1364.90 mGy-cm total DLP FINDINGS Encephalomalacia in the right occipital lobe; as seen on the previous exam. No abnormal areas of acute attenuation in the brain parenchyma. Mcleod-white differentiation remains intact. No intracranial, extra-axial, fluid collection. No hemorrhage. Periventricular chronic microvascular disease. No mass, mass effect or midline shift. Age related brain parenchymal global atrophy. No ventriculomegaly. No acute fracture. Mucous in the portion of each maxillary sinus. Mild mucosal thickening in the left ethmoid sinuses. Mastoid air cells are well aerated. Globes and intra-orbital contents are unremarkable. IMPRESSION No acute intracranial abnormality identified. Electronically signed by: Milad Chacko (Nov 11, 2020 21:53:22) CHEST, 1 VIEW COMPARISON October 24, 2020 TECHNIQUE Chest radiographic imaging, AP portable projection, 1 image FINDINGS No cardiomegaly. Bilateral perihilar airspace opacities which slightly improved since the previous exam. No pleural effusion. No pneumothorax. No acute osseous abnormality. IMPRESSION Bilateral perihilar airspace opacities which slightly improved since the previous exam. Recommend follow-up to resolution. Opioid Opioid Risk Tool Age (Jose Eduardo box if 16-45): No History of Preadolescent Sexual Abuse: No Total: 0 Total Score Risk Category: Low Risk Copyright: [facility] predicting aberrant behaviors Diagnosis Discharge Problem: Community acquired bacterial pneumonia AMS (altered mental status) Qualifiers: Altered mental status type: disorientation Qualified Code(s): R41.0 - Disorientation, unspecified Fever Qualifiers: Fever type: unspecified Qualified Code(s): R50.9 - Fever, unspecified Instructions Forms: Patient Portal Social Distancing
[2020-11-11 21:36] LABS: BASOPHILS % (AUTO) 0.6 % (0.2-1.0); EOSINOPHILS % (AUTO) 0.5 % (0.9-2.9); HEMOGLOBIN 10.7 g/dL (13.5-18.0); LYMPHOCYTES # (AUTO) 2.1 X10^3/uL (1.3-2.9); LYMPHOCYTES % (AUTO) 45.7 % (21.0-51.0); MEAN CORPUSCULAR HEMOGLOBIN 30.7 pg (27.0-34.0); MEAN CORPUSCULAR HGB CONC 33.4 g/dL (33.0-35.0); MEAN PLATELET VOLUME 6.9 fL (7.4-11.0); MONOCYTES # (AUTO) 0.1 x10^3/uL (0.3-0.8); MONOCYTES % (AUTO) 2.5 % (0.0-13.0); NEUTROPHILS # (AUTO) 2.4 x10^3/uL (2.2-4.8); NEUTROPHILS % (AUTO) 50.7 % (42.0-75.0); PLATELET COUNT 210 X10^3/uL (150.0-450.0); RED BLOOD COUNT 3.48 X10^6/uL (4.7-6.0); RED CELL DISTRIBUTION WIDTH 16.7 % (11.6-16.5); WHITE BLOOD COUNT 4.7 X10^3/uL (3.6-10.0)
[2020-11-11 21:47] LABS: BLOOD UREA NITROGEN 20 mg/dL (7-18); CALCIUM 9.2 mg/dL (8.5-10.1); CARBON DIOXIDE 27.6 mmol/L (21-32); CHLORIDE 97 mmol/L (98-107); COR NA(FOR HYPERGLY) 135 mmol/L (136-145); SODIUM 134 mmol/L (136-145); TROPONIN I < 0.02 ng/mL (0-1.5); eGFR NON BLACK RACES > 60 (>60)
--- NOTE | 2020-11-11 21:54 | CT ---
HISTORYC/O SHARP PAINS TO TOP OF HEAD AND BASE OF HEAD. PT'S STATES HE IS DISORIENTED, WEAK AND FEVER. PT VISITED HORACE ARREOLA NP TODAY AND WAS TOLD TO VISIT THE ER.STUDYBRAIN W/O CONCOMPARISONApril 2020TECHNIQUEAxial non-contrast images of the head were obtained with coronal and sagittal reformats provided.Radiation dose: 1364.90 mGy-cm total DLPFINDINGSEncephalomalacia in the right occipital lobe; as seen on the previous exam.No abnormal areas of acute attenuation in the brain parenchyma.Mcleod-white differentiation remains intact.No intracranial, extra-axial, fluid collection.No hemorrhage.Periventricular chronic microvascular disease.No mass, mass effect or midline shift.Age related brain parenchymal global atrophy.No ventriculomegaly.No acute fracture.Mucous in the portion of each maxillary sinus.Mild mucosal thickening in the left ethmoid sinuses.Mastoid air cells are well aerated.Globes and intra-orbital contents are unremarkable.IMPRESSIONNo acute intracranial abnormality identified.Electronically signed by: Milad Chacko (Nov 11, 2020 21:53:22)
[2020-11-11 21:59] LABS: BILIRUBIN,URINE NEGATIVE (NEGATIVE); BLOOD/HEMOGLOBIN,URINE 2+ (NEGATIVE); GLUCOSE, URINE NEGATIVE (NEGATIVE); KETONES,URINE 1+ (NEGATIVE); LEUKOCYTE ESTERASE ,URINE NEGATIVE (NEGATIVE); NITRITES,URINE NEGATIVE (NEGATIVE); PROTEIN,URINE 2+ (NEGATIVE); UROBILINOGEN,URINE NORMAL (NORMAL)
[2020-11-11 22:03] LABS: APPEARANCE,URINE CLEAR (CLEAR); BACTERIA,URINE NEGATIVE /HPF (NEGATIVE); COLOR,URINE YELLOW (YELLOW); SQUAMOUS EPITHELIAL CELL,UR RARE /HPF (NEGATIVE)
--- NOTE | 2020-11-11 22:07 | RAD ---
HISTORYC/O SHARP PAINS TO TOP OF HEAD AND BASE OF HEAD. PT'S STATES HE IS DISORIENTED, WEAK AND FEVER. PT VISITED HORACE ARREOLA NP TODAY AND WAS TOLD TO VISIT THE ER.STUDYCHEST, 1 VIEWCOMPARISONApril 2020TECHNIQUEChest radiographic imaging, AP portable projection, 1 imageFINDINGSNo cardiomegaly.Bilateral perihilar airspace opacities which slightly improved since the previous exam.No pleural effusion.No pneumothorax.No acute osseous abnormality.IMPRESSIONBilateral perihilar airspace opacities which slightly improved since the previous exam. Recommend follow-up to resolution.Electronically signed by: Milad Chacko (Nov 11, 2020 22:05:12)
[2020-11-11] MEDS ORDERED: ROCEPHIN 1 GRAM IV PREMIX 1 G/50 ML IV.SOLN. IV ONE ×2 (22:14→22:33)
[2020-11-11] MEDS ORDERED: ZITHROMAX INJ 500 MG VIAL 500 MG in NS 250 ML IV 250 ML IV SCH (22:14)
[2020-11-11] MEDS ORDERED: NS 1000 ML 1,000 ML ONE (22:32)
[2020-11-11] MEDS ORDERED: ZITHROMAX INJ 500 MG VIAL IV ONE (22:32)
[2020-11-11] MEDS ORDERED: NS 250 ML IV 250 ML IV ONE (22:33)
[2020-11-11] MEDS: NS 1000 ML 1,000 ML IV SCH (22:57)
[2020-11-12 01:42] VITALS: BMI 23.0
[2020-11-12 05:16] LABS: BASOPHILS % (AUTO) 0.5 % (0.2-1.0); EOSINOPHILS % (AUTO) 0.6 % (0.9-2.9); HEMATOCRIT 36.4 % (42.0-54.0); HEMOGLOBIN 11.8 g/dL (13.5-18.0); LYMPHOCYTES # (AUTO) 2.4 X10^3/uL (1.3-2.9); LYMPHOCYTES % (AUTO) 48.6 % (21.0-51.0); MEAN CORPUSCULAR HEMOGLOBIN 29.9 pg (27.0-34.0); MEAN CORPUSCULAR HGB CONC 32.5 g/dL (33.0-35.0); MEAN CORPUSCULAR VOLUME 91.9 fL (80.0-100.0); MEAN PLATELET VOLUME 6.9 fL (7.4-11.0); MONOCYTES # (AUTO) 0.2 x10^3/uL (0.3-0.8); MONOCYTES % (AUTO) 3.4 % (0.0-13.0); NEUTROPHILS # (AUTO) 2.3 x10^3/uL (2.2-4.8); NEUTROPHILS % (AUTO) 46.9 % (42.0-75.0); PLATELET COUNT 226 X10^3/uL (150.0-450.0); RED BLOOD COUNT 3.96 X10^6/uL (4.7-6.0); RED CELL DISTRIBUTION WIDTH 16.3 % (11.6-16.5); WHITE BLOOD COUNT 4.9 X10^3/uL (3.6-10.0)
[2020-11-12 06:03] LABS: ALANINE AMINOTRANSFERASE 16 Units/L (12-78); ALBUMIN 3.3 g/dL (3.4-5.0); ALKALINE PHOSPHATASE 35 Units/L (46-116); ASPARTATE AMINO TRANSFERASE 11 Units/L (15-37); BLOOD UREA NITROGEN 15 mg/dL (7-18); CARBON DIOXIDE 29.9 mmol/L (21-32); CHLORIDE 96 mmol/L (98-107); COR CA(FOR HYPOALB) 9.6 mg/dL (8.5-10.1); COR NA(FOR HYPERGLY) 136 mmol/L (136-145); CREATININE 0.87 mg/dL (0.70-1.30); SODIUM 134 mmol/L (136-145); eGFR NON BLACK RACES > 60 (>60)
[2020-11-12] MEDS ORDERED: ELIQUIS PO SCH (09:00)
[2020-11-12] MEDS ORDERED: GLUCOPHAGE PO SCH (09:00)
[2020-11-12] MEDS ORDERED: HEMOCYTE-PLUS PO SCH (09:00)
[2020-11-12] MEDS ORDERED: PROTONIX TAB 40 MG PO SCH (09:00)
[2020-11-12] MEDS ORDERED: GLUCOPHAGE ONE (09:01)
--- NOTE | 2020-11-12 09:14 | DR.SSS ---
SHORT STAY SUMMARY Admission Date Date of Admission: 11/11/20 Discharge Date Discharge Date: 11/12/20 Admission Diagnoses Admission Diagnoses: Altered mental status Discharge Diagnoses Discharge Diagnoses: Altered mental status Chief Complaint Chief Complaint: Altered mental status History of Present Illness History of Present Illness: Pt is a 79 year old male past medical history of CVA, HTN, DMT2, admitted for altered mental status. Per , pt has had for the past 2-3 months intermittent episodes of confusion and difficulty forming words, sometimes during intermittent fevers. Denies any facial or extremity weakness/n umbness, vision changes, or unsteady gait. Denies chest pain, shortness of breath, abdominal pain, constipation, diarrhea, edema. Past Medical History Past Medical History: CVA, Diabetes, Dyslipidemia and Headaches Past Surgical History Surgical History: Other Allergies Allergies Allergy/AdvReac Type Severity Reaction Status Date / Time vancomycin Allergy Verified 09/21/20 10:28 Medications Home Medications: vancomycin Allergy (Verified 09/21/20 10:28) CONTINUE taking the following medications bifidobacteri bifid.and longum 1 cap PO DAILY 11/11/20 [History] cinnamon bark [Cinnamon] 1,000 mg PO BID 11/11/20 [History] ferrous sulfate 325 mg PO BID 11/11/20 [History] ondansetron HCl [Zofran] 4 mg PO Q6H PRN 11/11/20 [History] simvastatin 40 mg PO HS 11/11/20 [History] Family History Family Medical History: Diabetes Mellitus and Cancer Social History Does patient currently use any type of tobacco product: No Have you used tobacco products in the last 12 months: No Does any household member use tobacco: No Alcohol Use: None Review of Systems Constitutional: Chills; denies Fever Eyes: No Symptoms Reported ENT: No Symptoms Reported Respiratory: No Symptoms Reported Cardiovascular: No Symptoms Reported Gastrointestinal: No Symptoms Reported Genitourinary: No Symptoms Reported Musculoskeletal: No Symptoms Reported Skin: No Symptoms Reported Neurological: Confusion Physical Exam Vital Signs: Last Vital Signs Temp 98.7 F 11/12/20 08:00 Pulse 109 H 11/12/20 08:00 Resp 18 11/12/20 08:00 BP 160/69 11/12/20 08:00 Pulse Ox 92 L 11/12/20 08:00 Oriented: Normal Eyes: Normal Ear: Normal Nose: Normal Throat: Normal Respiratory: Clear Throughout Cardiovascular: Normal : Normal Auscultation: Bowel Sounds: Normal Palpation: Normal Tenderness: Normal Skin: Normal Musculoskeletal: Normal Psychiatric: Normal Mood Description: Calm Affect: Normal Speech Pattern: Clear Labs Labs: Laboratory Last Values WBC 4.9 X10^3/uL (3.6-10.0) 11/12/20 04:49 RBC 3.96 X10^6/uL (4.7-6.0) L 11/12/20 04:49 Hgb 11.8 g/dL (13.5-18.0) L 11/12/20 04:49 Hct 36.4 % (42.0-54.0) L 11/12/20 04:49 MCV 91.9 fL (80.0-100.0) 11/12/20 04:49 MCH 29.9 pg (27.0-34.0) 11/12/20 04:49 MCHC 32.5 g/dL (33.0-35.0) L 11/12/20 04:49 RDW 16.3 % (11.6-16.5) 11/12/20 04:49 Plt Count 226 X10^3/uL (150.0-450.0) 11/12/20 04:49 MPV 6.9 fL (7.4-11.0) L 11/12/20 04:49 Neut % (Auto) 46.9 % (42.0-75.0) 11/12/20 04:49 Lymph % (Auto) 48.6 % (21.0-51.0) 11/12/20 04:49 [place] % (Auto) 3.4 % (0.0-13.0) 11/12/20 04:49 Eos % (Auto) 0.6 % (0.9-2.9) L 11/12/20 04:49 Baso % (Auto) 0.5 % (0.2-1.0) 11/12/20 04:49 Neut # (Auto) 2.3 x10^3/uL (2.2-4.8) 11/12/20 04:49 Lymph # (Auto) 2.4 X10^3/uL (1.3-2.9) 11/12/20 04:49 [place] # (Auto) 0.2 x10^3/uL (0.3-0.8) L 11/12/20 04:49 Eos # (Auto) 0.0 x10^3/uL (0.0-0.2) 11/12/20 04:49 Baso # (Auto) 0.0 X10^3/uL (0.0-0.1) 11/12/20 04:49 Absolute Nucleated RBC 0.0 /100WBC 11/12/20 04:49 Sodium 134 mmol/L (136-145) L 11/12/20 04:49 Corrected Sodium 136 mmol/L (136-145) 11/12/20 04:49 Potassium 3.7 mmol/L (3.5-5.1) 11/12/20 04:49 Chloride 96 mmol/L (98-107) L 11/12/20 04:49 Carbon Dioxide 29.9 mmol/L (21-32) 11/12/20 04:49 BUN 15 mg/dL (7-18) 11/12/20 04:49 Creatinine 0.87 mg/dL (0.70-1.30) 11/12/20 04:49 Est GFR (MDRD) Af Amer > 60 (>60) 11/12/20 04:49 Est GFR (MDRD) Non-Af > 60 (>60) 11/12/20 04:49 Glucose 169 mg/dL (65-99) H 11/12/20 04:49 POC Glucose (mg/dL) 145 mg/dL (65-99) H 11/12/20 05:24 Calcium 9.0 mg/dL (8.5-10.1) 11/12/20 04:49 Corrected Calcium 9.6 mg/dL (8.5-10.1) 11/12/20 04:49 Total Bilirubin 0.20 mg/dL (0.2-1.0) 11/12/20 04:49 AST 11 Units/L (15-37) L 11/12/20 04:49 ALT 16 Units/L (12-78) 11/12/20 04:49 Alkaline Phosphatase 35 Units/L (46-116) L 11/12/20 04:49 Troponin I < 0.02 ng/mL (0-1.5) 11/11/20 21:11 Total Protein 7.0 g/dL (6.4-8.2) 11/12/20 04:49 Albumin 3.3 g/dL (3.4-5.0) L 11/12/20 04:49 Globulin 3.7 g/dL (2.5-4.5) 11/12/20 04:49 Albumin/Globulin Ratio 0.9 Ratio (1.1-2.1) L 11/12/20 04:49 Specimen Type Clean catch urine 11/11/20 21:50 Urine Color Yellow (YELLOW) 11/11/20 21:50 Urine Appearance Clear (CLEAR) 11/11/20 21:50 Urine pH 5.0 (5.0 - 8.0) 11/11/20 21:50 Ur Specific [place] 1.025 (1.000-1.030) 11/11/20 21:50 Urine Protein 2+ (NEGATIVE) 11/11/20 21:50 Urine Glucose (UA) Negative (NEGATIVE) 11/11/20 21:50 Urine Ketones 1+ (NEGATIVE) 11/11/20 21:50 Urine Occult Blood 2+ (NEGATIVE) 11/11/20 21:50 Urine Nitrite Negative (NEGATIVE) 11/11/20 21:50 Urine Bilirubin Negative (NEGATIVE) 11/11/20 21:50 Urine Urobilinogen Normal (NORMAL) 11/11/20 21:50 Ur Leukocyte Esterase Negative (NEGATIVE) 11/11/20 21:50 Urine RBC 3-5 /HPF (0-3) A 11/11/20 21:50 Urine WBC None seen /HPF (0-5) 11/11/20 21:50 Ur Squamous Epith Cells Rare /HPF (NEGATIVE) 11/11/20 21:50 Urine Bacteria Negative /HPF (NEGATIVE) 11/11/20 21:50 Ur Culture Indicated? No/not indicated 11/11/20 21:50 SARS CoV-2 RNA Rapid GISELLA Negative (NEGATIVE) 11/11/20 22:28 Assessment/Plan (1) AMS (altered mental status): Hospital Course Hospital Course: Pt was started on IVF and given dose of Azithromycin. Labs/imaging: Wbc 4.9, Hgb 11.8, Plt 226, Na 134, K 3.7, Creatinine 0.87, Glucose 169, UA now c/w infection, CT brain: No acute intracranial abnormality identified. CXR: Bilateral perihilar airspace opacities which slightly improved since the previous exam. Recommend follow-up to resolution. Pt was monitored overnight, no fevers, does not have leukocytosis, no acute findings on physical exam, and no source of infection identified. Known history of abnormal CXR, does not appear to have changed. Pt recently completed the day before a course of Levaquin. With no source of infection or supporting lab findings, discharge without antibiotics. Intermittent confusion appears to be related to dementia. Pt has follow up with oncology and neurology outpatient in November. Recommend pt continue to go to follow up appointments. Instructed to follow up with pcp in 1 week. Discharge Medications Discharge Medications: Home Medication List bifidobacteri bifid.and longum 1 cap PO DAILY 11/11/20 [History] cinnamon bark [Cinnamon] 1,000 mg PO BID 11/11/20 [History] ferrous sulfate 325 mg PO BID 11/11/20 [History] ondansetron HCl [Zofran] 4 mg PO Q6H PRN 11/11/20 [History] simvastatin 40 mg PO HS 11/11/20 [History] Prescriptions: Discharge Disposition Discharge Disposition: Home
[2020-11-12] MEDS: NS 1000 ML 1,000 ML IV SCH (09:15)
[2020-11-12 12:04] VITALS: BP 163/71
== END 2020-11-12 12:00 | disposition home or self-care (01) ==
LOC: MED/SURG 19:28 → ER 19:28 → MED/SURG 23:57
PROVIDERS: ADMIT Family Medicine; ATTEND Family Medicine
DX: R50.9 Fever, unspecified; R51.9 Headache, unspecified; J18.8 Other pneumonia, unspecified organism; E11.65 Type 2 diabetes mellitus with hyperglycemia; Z20.822 Contact with and (suspected) exposure to COVID-19; E87.1 Hypo-osmolality and hyponatremia; R41.82 Altered mental status, unspecified; I10 Essential (primary) hypertension; Z86.73 Personal history of transient ischemic attack (TIA), and cerebral infarction without residual deficits; M54.2 Cervicalgia